=== PATIENT | female | born 1930 | race Caucasian/White ===

== ENCOUNTER 2019-01-12 22:12 | Inpatient (IN) | payer MEDICARE, OTHER ==
[~2019-01-12] VITALS: Ht 152.4 cm; Wt 52.9 kg
[2019-01-13] MEDS ORDERED: POTA10TA37 PO (00:45)
[2019-01-13] MEDS ORDERED: SIMV20TA PO (00:45)
[2019-01-13] MEDS ORDERED: FOLI-49 PO (00:45)
[2019-01-13] MEDS ORDERED: FURO20TA3 PO (00:45)
[2019-01-13] MEDS ORDERED: WARF1TAB PO (00:45)
[2019-01-13] MEDS ORDERED: ALLO300T2 PO (00:45)
[2019-01-13] MEDS ORDERED: CEFTRIAXONE 1 GM/50 ML (PMX) 50 ML IVPB ONE (03:00)
--- NOTE | 2019-01-13 03:29 | ERD ---
ER Documentation Chief Complaint Chief Complaint BIBA 39 for weaknes x 2 days HPI This is an 88-year-old female brought in by rescue 39 for generalized weakness for the past 2 days. She is nonfocal and has no focal complaints. She does feel that she is been a little bit slow and lethargic. She denies any fevers chills. Denies any nausea vomiting. Denies any chest pain. Denies any other current complaints. Patient is a relatively good historian. She said she was recently admitted to [facility] to Dr. Vallejo ROS All systems reviewed and are negative except as per history of present illness. Medications Home Meds Reported Medications Simvastatin* (Zocor*) 20 Mg Tablet, 20 MG PO QHS, #30 TAB 01/13/19 Potassium Chloride* (K-Dur*) 10 Meq Tab.prt.sr, 10 MEQ PO DAILY, TAB 01/13/19 Warfarin Sodium* (Coumadin*) 1 Mg Tablet, 1 MG PO DAILY, TAB 01/13/19 Folic Acid* (Folic Acid*) 1 Mg Tablet, 1 MG PO DAILY, TAB 01/13/19 Furosemide* (Furosemide*) 20 Mg Tablet, 20 MG PO DAILY, #60 TAB 01/13/19 Allopurinol* (Allopurinol*) 300 Mg Tablet, 300 MG PO DAILY, TAB 01/13/19 Allergies Allergies: Coded Allergies: No Known Allergy (Unverified , 01/13/19) PMhx/Soc History of Surgery: Yes (R hip, pacemaker, L breast lumpectomy) Anesthesia Reaction: No Hx Neurological Disorder: No Hx Respiratory Disorders: No Hx Cardiac Disorders: Yes (CHF) Hx Psychiatric Problems: No Hx Miscellaneous Medical Probl: No Hx Alcohol Use: No Hx Substance Use: No Hx Tobacco Use: No Smoking Status: Never smoker Physical Exam Vitals Vital Signs Date Temp Pulse Resp B/P (MAP) Pulse Ox O2 O2 Flow FiO2 Time Delivery Rate 01/13/19 97.1 60 17 96/59 (71) 100 Nasal 3.0 00:47 Cannula 01/12/19 Nasal 3 23:08 Cannula 01/12/19 97.1 64 16 118/54 100 Nasal 3.0 23:08 (75) Cannula 01/12/19 97.1 60 16 118/54 97 22:25 (75) Physical Exam Const: No acute distress Head: Atraumatic Eyes: Normal Conjunctiva ENT: Normal External Ears, Nose and Mouth. Neck: Full range of motion. No meningismus. Resp: Clear to auscultation bilaterally Cardio: Regular rate and rhythm, no murmurs Abd: Soft, non tender, non distended. Normal bowel sounds Skin: No petechiae or rashes Back: No midline or flank tenderness Ext: No cyanosis, or edema Neur: Awake and alert Psych: Normal Mood and Affect Result Diagram: 01/12/19225001/12/192250 Results 24 hrs Laboratory Tests Test 01/12/19 22:51 01/12/19 23:13 White Blood Count 9.4 10^3/ul Red Blood Count 3.32 10^6/ul Hemoglobin 9.4 g/dl Hematocrit 28.9 % Mean Corpuscular Volume 87.0 fl Mean Corpuscular Hemoglobin 28.3 pg Mean Corpuscular Hemoglobin Concent 32.5 g/dl Red Cell Distribution Width 14.7 % Platelet Count 244 10^3/UL Mean Platelet Volume 10.4 fl Immature Granulocytes % 0.500 % Neutrophils % 78.5 % Lymphocytes % 12.3 % Monocytes % 7.7 % Eosinophils % 0.6 % Basophils % 0.4 % Nucleated Red Blood Cells % 0.0 /100WBC Immature Granulocytes # 0.050 10^3/ul Neutrophils # 7.4 10^3/ul Lymphocytes # 1.2 10^3/ul Monocytes # 0.7 10^3/ul Eosinophils # 0.1 10^3/ul Basophils # 0.0 10^3/ul Nucleated Red Blood Cells # 0.0 10^3/ul Prothrombin Time 23.0 Sec Prothrombin Time Ratio 1.8 INR International Normalized Ratio 2.03 Activated Partial Thromboplast Time 31.2 Sec Urine Color YELLOW Urine Clarity SLIGHTLY CLOUDY Urine pH 5.0 Urine Specific [place] 1.023 Urine Ketones NEGATIVE mg/dL Urine Nitrite NEGATIVE mg/dL Urine Bilirubin NEGATIVE mg/dL Urine Urobilinogen 2+ mg/dL Urine Leukocyte Esterase TRACE Phyllis/ul Urine Microscopic RBC 2 /HPF Urine Microscopic WBC 31 /HPF Urine Squamous Epithelial Cells FEW /HPF Urine Bacteria MANY /HPF Urine Mucus FEW /HPF Urine Hemoglobin 1+ mg/dL Urine Glucose NEGATIVE mg/dL Urine Total Protein 2+ mg/dl Sodium Level 139 mmol/L Potassium Level 4.2 mmol/L Chloride Level 104 mmol/L Carbon Dioxide Level 27 mmol/L Anion Gap 8 Blood Urea Nitrogen 40 mg/dl Creatinine 1.70 mg/dl Est Glomerular Filtrat Rate mL/min mL/min Glucose Level 181 mg/dl Calcium Level 9.0 mg/dl Total Bilirubin 0.2 mg/dl Direct Bilirubin 0.00 mg/dl Indirect Bilirubin 0.2 mg/dl Aspartate Amino Transf (AST/SGOT) 33 IU/L Alanine Aminotransferase (ALT/SGPT) 16 IU/L Alkaline Phosphatase 90 IU/L Troponin I 0.019 ng/ml Total Protein 6.9 g/dl Albumin 3.6 g/dl Globulin 3.30 g/dl Albumin/Globulin Ratio 1.09 Lactic Acid Level 1.9 mmol/L Current Medications Medications Dose Sig/Michael Start Time Status Last (Trade) Ordered Route PRN Stop Time Admin Dose Reason Admin Ceftriaxone 50 ml @ ONCE ONCE 01/13/19 01/13/19 Sodium 100 mls/hr IVPB 03:00 03:01 01/13/19 03:29 Procedures/MDM EKG: Rate/Rhythm: [Normal Sinus Rhythm] QRS, ST, T-waves: [No changes consistent w/ acute ischemia] Impression: [No evidence of ischemia or arrhythmia] Chest X-ray 1V Interpreted by me: Soft Tissue: No acute abnormalities Bones: No acute abnormalities Mediastinum/Cardiac Silhouette/Lungs: [No acute abnormalities] Medical decision makin-year-old female with generalized weakness and urinary tract infection. Nonfocal neurologically with a normal head CT. At this point I feel the patient is to be admitted for further evaluation and management. Dr. Machado is on-call for the patient's primary Dr. Frausto. Patient will be admitted to medical surgical observation Departure Diagnosis: Primary Impression: Acute weakness Condition: COLTON Loza Jan 13, 2019 03:29
[2019-01-13 04:54] VITALS: Ht 152.4 cm; Wt 52.9 kg
[2019-01-13] MEDS ORDERED: METO-335 PO (05:25)
[2019-01-13] MEDS ORDERED: ONDANSETRON 4 MG INJ IV PRN (06:00)
[2019-01-13 08:00] VITALS: BP 128/56; PULSE 73; RESP 18
[2019-01-13] MEDS: morphine 2 MG INJ IV PRN ×2 (09:19→20:50)
--- NOTE | 2019-01-13 12:46 | HP ---
Date/Time of Note Date/Time of Note DATE: 01/13/19 TIME: 12:34 Assessment/Plan VTE Prophylaxis Risk score (from Ns)>0 risk: 8 SCD applied (from Ns): Yes Pharmacological prophylaxis: LMWH Lines/Catheters IV C[facility]ter Type (from [facility] Saline Lock Urinary Cath still in place: No Assessment/Plan Assessment/Plan -UTI per UA, will obtain urine culture, start Rocephin. -Status post mechanical fall with complaints of right hip and right shoulder pain will obtain x-ray series for right hip and right shoulder. -CHF -Permanent pacemaker -Hyperlipidemia -Acute kidney injury on possible chronic kidney disease -Gout arthritis Further recommendations based on clinical course. Plan of care discussed with Dr. Petty. Result Diagram: 01/13/19 0611 01/13/19 0611 Results 24hrs Laboratory Tests Test 01/12/19 22:51 01/12/19 23:13 01/13/19 02:24 01/13/19 06:11 White Blood Count 9.4 8.0 Red Blood Count 3.32 L 3.04 L Hemoglobin 9.4 L 8.5 L Hematocrit 28.9 L 25.8 L Mean Corpuscular 87.0 84.9 Volume Mean Corpuscular 28.3 L 28.0 L Hemoglobin Mean Corpuscular 32.5 32.9 Hemoglobin Concen t Red Cell 14.7 H 14.2 Distribution Width Platelet Count 244 243 Mean Platelet 10.4 10.7 H Volume Immature 0.500 H 0.500 H Granulocytes % Neutrophils % 78.5 H 79.8 H Lymphocytes % 12.3 L 11.5 L Monocytes % 7.7 7.7 Eosinophils % 0.6 0.1 Basophils % 0.4 0.4 Nucleated Red 0.0 0.0 Blood Cells % Immature 0.050 H 0.040 H Granulocytes # Neutrophils # 7.4 6.4 Lymphocytes # 1.2 0.9 Monocytes # 0.7 0.6 Eosinophils # 0.1 0.0 Basophils # 0.0 0.0 Nucleated Red 0.0 0.0 Blood Cells # Prothrombin Time 23.0 H Prothrombin Time 1.8 Ratio INR International 2.03 Normalized Ratio Activated 31.2 Partial Thrombopl ast Time Urine Color YELLOW Urine Clarity SLIGHTLY CLOUDY A Urine pH 5.0 Urine Specific 1.023 [place] Urine Ketones NEGATIVE Urine Nitrite NEGATIVE Urine Bilirubin NEGATIVE Urine 2+ H Urobilinogen Urine Leukocyte TRACE A Esterase Urine Microscopic 2 RBC Urine Microscopic 31 H WBC Urine Squamous FEW Epithelial Cells Urine Bacteria MANY A Urine Mucus FEW A Urine Hemoglobin 1+ H Urine Glucose NEGATIVE Urine Total 2+ H Protein Sodium Level 139 140 Potassium Level 4.2 4.8 Chloride Level 104 106 Carbon Dioxide 27 27 Level Anion Gap 8 7 Blood Urea 40 H 42 H Nitrogen Creatinine 1.70 H 1.60 H Est Glomerular Filtrat Rate mL/min Glucose Level 181 113 # Calcium Level 9.0 9.3 Total Bilirubin 0.2 Direct Bilirubin 0.00 Indirect 0.2 Bilirubin Aspartate Amino 33 Transf (AST/SGOT) Alanine 16 Aminotransferase (ALT/SGPT) Alkaline 90 Phosphatase Troponin I 0.019 Total Protein 6.9 Albumin 3.6 Globulin 3.30 H Albumin/Globulin 1.09 Ratio Lactic Acid Level 1.9 1.8 HPI/ROS Admit Date/Time Admit Date/Time Jan 13, 2019 at 03:27 Hx of Present Illness The patient is a 88-year-old female with history of congestive heart failure, pacemaker was brought by rescue ambulance to emergency room for complaints of generalized weakness. According to the patient patient sustained an mechanical fall and now complains of the right hip and right shoulder pain. Patient denies any head trauma. Patient urinalysis was indicative of urinary tract infection. Patient also on Coumadin, patient is awake alert however cannot provide detailed medical history. Twelve-lead EKG in ED reveals sinus rhythm. She denies chest pain denies shortness of breath denies nausea vomiting diarrhea. Patient is admitted for further evaluation and management to medical surgical floor. ROS 12 point review of systems is negative except for what mentioned in HPI PMH/Family/Social Past Medical History Medical History: congestive heart failure, high cholesterol Medications Current Medications Ceftriaxone Sodium 50 ml @ 100 mls/hr Q24H IVPB ; Start 01/14/19 at 06:00 Morphine Sulfate (morphine) 2 mg Q4H PRN IV SEVERE PAIN LEVEL 7-10 Last administered on 01/13/19at 09:19; Admin Dose 2 MG; Start 01/13/19 at 06:00 Ondansetron HCl (Zofran Inj) 4 mg Q6H PRN IV NAUSEA AND/OR VOMITING; Start 01/13/19 at 06:00 Coded Allergies: No Known Allergy (Unverified , 01/13/19) Past Surgical History Past Surgical Hx: other (R hip, pacemaker, L breast lumpectomy) Family History Significant Family History: no pertinent family hx Social History Alcohol Use: none Smoking Status: Never smoker Drug Use: none Exam/Review of Systems Vital Signs Vitals Vital Signs Date Temp Pulse Resp B/P (MAP) Pulse Ox O2 O2 Flow FiO2 Time Delivery Rate 01/13/19 98.1 73 18 128/56 98 Room Air 08:00 (80) 01/13/19 3.0 04:13 Exam Constitutional: alert, oriented Neck: supple Respiratory: clear to auscultation Cardiovascular: regular rate and rhythm, other (Left chest PPM) Gastrointestinal: soft, non-tender Musculoskeletal: nl extremities to inspection Extremities: normal pulses Neurological: nl mental status JUAN LAUREN Jan 13, 2019 12:45
[2019-01-13 15:03] VITALS: BP 120/58; PULSE 70; RESP 18
[2019-01-13 20:20] VITALS: BP 113/62; PULSE 77; RESP 18
[2019-01-13] MEDS: ATORVASTATIN 10 MG TAB PO SCH (20:44)
[2019-01-13] MEDS ORDERED: NON-FORMULARY/PATIENT OWN MED (Simvastatin* (Zocor*) 20 MG) PO SCH (21:00)
[2019-01-14 02:19] VITALS: BP 116/57; PULSE 79; RESP 18
[2019-01-14] MEDS: CEFTRIAXONE 1 GM/50 ML (PMX) 50 ML IVPB SCH (05:31)
[2019-01-14] MEDS: morphine LIQ (10 MG/5 ML) CUP PO PRN ×2 (05:35→12:20)
[2019-01-14 07:40] VITALS: BP 113/58; PULSE 84; RESP 18
[2019-01-14] MEDS: FOLIC ACID 1 MG TAB PO SCH (09:00)
[2019-01-14] MEDS: FUROSEMIDE 20 MG TAB PO SCH (09:00)
[2019-01-14] MEDS: ALLOPURINOL 300 MG TAB PO SCH (09:00)
[2019-01-14] MEDS ORDERED: POTASSIUM CHLORIDE (SR) 10 MEQ TAB PO SCH (09:00)
[2019-01-14] MEDS: METOPROLOL (XL) 25 MG TAB PO SCH (09:01)
[2019-01-14 14:25] VITALS: BP 120/65; PULSE 78; RESP 18
--- NOTE | 2019-01-14 15:57 | PN ---
Date/Time of Note Date/Time of Note DATE: 01/14/19 TIME: 15:51 Assessment/Plan VTE Prophylaxis Risk score (from Ns)>0 risk: 9 SCD applied (from Ns): Yes Pharmacological prophylaxis: warfarin tx Lines/Catheters IV Catheter Type (from Nrs): Saline Lock Urinary Cath still in place: No Assessment/Plan Hospital Course Patient's continues to be generally weak, lethargic but easily arousable, continue PT evaluation and treatment. Assessment/Plan -E. coli UTI, continue Rocephin. -Status post mechanical fall with complaints of right hip and right shoulder pain will obtain x-ray series for right hip and right shoulder. Right hip and shoulder x-ray is negative for fracture. Right hip fixation hardware appears intact. -CHF -Permanent pacemaker -Hyperlipidemia -Acute kidney injury on possible chronic kidney disease -Anemia, will obtain stool for OB -Arthritis Further recommendations based on clinical course. Plan of care discussed with Dr. Petty. Result Diagram: 01/14/19 0609 01/14/19 0609 Results 24hrs Laboratory Tests Test 01/14/19 06:09 White Blood Count 7.8 Red Blood Count 2.74 L Hemoglobin 7.7 L Hematocrit 23.0 L Mean Corpuscular Volume 83.9 Mean Corpuscular Hemoglobin 28.1 L Mean Corpuscular Hemoglobin Concent 33.5 Red Cell Distribution Width 14.2 Platelet Count 215 Mean Platelet Volume 10.6 H Immature Granulocytes % 0.400 Neutrophils % 68.5 Lymphocytes % 17.7 Monocytes % 10.8 Eosinophils % 2.2 Basophils % 0.4 Nucleated Red Blood Cells % 0.0 Immature Granulocytes # 0.030 Neutrophils # 5.3 Lymphocytes # 1.4 Monocytes # 0.8 Eosinophils # 0.2 Basophils # 0.0 Nucleated Red Blood Cells # 0.0 Sodium Level 138 Potassium Level 4.5 Chloride Level 101 Carbon Dioxide Level 23 Anion Gap 14 #H Blood Urea Nitrogen 42 H Creatinine 1.53 H Est Glomerular Filtrat Rate mL/min Glucose Level 103 Calcium Level 8.7 Exam/Review of Systems Exam Vitals Vital Signs Date Temp Pulse Resp B/P (MAP) Pulse Ox O2 O2 Flow FiO2 Time Delivery Rate 01/14/19 98.6 78 18 120/65 95 Room Air 14:25 (83) 01/13/19 3.0 04:13 Intake and Output 01/13/19 01/13/19 01/14/19 1515:00 23:00 07:00 IntakeIntake Total 600 ml 320 ml 170 ml OutputOutput Total 100 ml 100 ml BalanceBalance 500 ml 220 ml 170 ml Exam Constitutional: alert, oriented Neck: supple Respiratory: clear to auscultation Cardiovascular: regular rate and rhythm, other (Left chest PPM) Gastrointestinal: soft, non-tender Musculoskeletal: nl extremities to inspection Extremities: normal pulses Neurological: nl mental status Results Results 24hrs Laboratory Tests Test 01/14/19 06:09 White Blood Count 7.8 Red Blood Count 2.74 L Hemoglobin 7.7 L Hematocrit 23.0 L Mean Corpuscular Volume 83.9 Mean Corpuscular Hemoglobin 28.1 L Mean Corpuscular Hemoglobin Concent 33.5 Red Cell Distribution Width 14.2 Platelet Count 215 Mean Platelet Volume 10.6 H Immature Granulocytes % 0.400 Neutrophils % 68.5 Lymphocytes % 17.7 Monocytes % 10.8 Eosinophils % 2.2 Basophils % 0.4 Nucleated Red Blood Cells % 0.0 Immature Granulocytes # 0.030 Neutrophils # 5.3 Lymphocytes # 1.4 Monocytes # 0.8 Eosinophils # 0.2 Basophils # 0.0 Nucleated Red Blood Cells # 0.0 Sodium Level 138 Potassium Level 4.5 Chloride Level 101 Carbon Dioxide Level 23 Anion Gap 14 #H Blood Urea Nitrogen 42 H Creatinine 1.53 H Est Glomerular Filtrat Rate mL/min Glucose Level 103 Calcium Level 8.7 Medications Medication Current Medications Ceftriaxone Sodium 50 ml @ 100 mls/hr Q24H IVPB Last administered on 01/14/19at 05:31; Admin Dose 100 MLS/HR; Start 01/14/19 at 06:00 Ondansetron HCl (Zofran Inj) 4 mg Q6H PRN IV NAUSEA AND/OR VOMITING; Start 01/13/19 at 06:00 Allopurinol (Zyloprim) 300 mg DAILY PO Last administered on 01/14/19at 09:00; Admin Dose 300 MG; Start 01/14/19 at 09:00 Folic Acid (Folic Acid) 1 mg DAILY PO Last administered on 01/14/19at 09:00; Admin Dose 1 MG; Start 01/14/19 at 09:00 Furosemide (Lasix) 20 mg DAILY PO Last administered on 01/14/19at 09:00; Admin Dose 20 MG; Start 01/14/19 at 09:00 Metoprolol Succinate (Toprol Xl) 25 mg DAILY PO Last administered on 01/14/19at 09:01; Admin Dose 25 MG; Start 01/14/19 at 09:00 Warfarin Sodium (Coumadin) 1 mg DAILY@1700 PO ; Start 01/14/19 at 17:00 Atorvastatin Calcium (Lipitor) 10 mg DAILY@21 PO Last administered on 01/13/19at 20:44; Admin Dose 10 MG; Start 01/13/19 at 21:00 Morphine Sulfate (morphine) 6 mg Q4H PRN PO SEVERE PAIN LEVEL 7-10 Last administered on 01/14/19at 12:20; Admin Dose 6 MG; Start 01/13/19 at 22:30 JUAN LAUREN Jan 14, 2019 15:57
[2019-01-14] MEDS: WARFARIN 1 MG TAB PO SCH (17:02)
--- NOTE | 2019-01-14 19:06 | CONS ---
DATE OF ADMISSION: 01/14/2019 DATE OF CONSULTATION: 01/14/2019 TYPE OF CONSULTATION: Cardiology. REASON FOR CONSULTATION: Permanent pacemaker, assess function, abnormal electrocardiogram, rule acute coronary syndrome. REQUESTING PHYSICIAN: Cortez Petty MD HISTORY OF PRESENT ILLNESS: Ms. Velez is an 88-year-old female with history of congestive heart failure, permanent pacemaker on Coumadin for unclear reasons at this time likely cardiac arrhythmia, left breast lumpectomy secondary to breast CA, dyslipidemia, who presents with generalized weakness and per chart biopsy, the patient does not provide any meaningful history to me at this time, had sustained a mechanical fall with associated right hip and right shoulder pain. The patient does not clearly denied chest pain, shortness of breath to me at this time. Upon arrival, temperature was 97.1, blood pressure 118/54, pulse 60, respiratory rate 16, satting 95%. The patient's labs revealed a white blood cell count 9.4, hemoglobin 9.4, platelet count of 244, sodium 139, potassium 4.2, creatinine 1.7, BUN of 40. Troponin negative. INR of 2. UA positive. The patient underwent a shoulder x-ray which revealed no acute fracture or dislocation, moderate degenerative joint disease and a hip x-ray that revealed no acute fracture or dislocation, fixation hardware appears intact. The patient's electrocardiogram reveals atrial paced with a baseline bundle branch block, secondary repolarization abnormalities. The patient has been admitted to the floor and since admit to floor, the patient has had some labile blood pressures but overall relatively stable blood pressure and heart rate. PAST MEDICAL HISTORY: As above in HPI. MEDICATIONS CURRENTLY IN HOSPITAL: 1. Coumadin. 2. Allopurinol. 3. Folic acid. 4. Lasix 20 mg daily. 5. Toprol-XL 25 mg daily. 6. Ceftriaxone. 7. Morphine p.r.n. 8. Lipitor 10 mg daily. 9. Zofran p.r.n. ALLERGIES: NO KNOWN DRUG ALLERGIES. SOCIAL HISTORY: No current tobacco, EtOH or illicit drug use. FAMILY HISTORY: No history of sudden cardiac or early CAD. REVIEW OF SYSTEMS: As above in HPI. CONSTITUTIONAL: No fevers, chills. PULMONARY: No current signs of respiratory compromise. GASTROINTESTINAL: Mild abdominal pain per patient. GENITOURINARY: No hematuria or UTI. MUSCULOSKELETAL: Degenerative joint disease. PSYCHIATRIC: No documented psych history. NEUROLOGIC: No documented history of CVA. ENDOCRINE: No documented history of diabetes mellitus or thyroid disease. PHYSICAL EXAMINATION: VITAL SIGNS: Temperature 98.6, blood pressure 120/65, pulse 78, respiratory rate 18, satting 95%. GENERAL: The patient is sleeping but arousable. NECK: JVP approximately is 8 to 9 cm of water. CHEST: Fair air movement throughout with mild decreased breath sounds at bases bilaterally. HEART: Regular rate and rhythm. Normal S1, S2, I/ systolic murmur. ABDOMEN: Positive bowel sounds, soft. EXTREMITIES: No significant pitting edema, 1+ pulses bilateral posterior tibial. LABORATORY DATA: Most recently from today, white blood cell count 7.8, hemoglobin 7.7, platelet count 215. Sodium 138, potassium 4.5, creatinine 1.53, BUN of 42. INR of 2.0. UA positive. IMAGING STUDIES: As above in HPI. No further imaging studies for my review at this time. ELECTROCARDIOGRAM: As above in HPI. No further electrocardiograms for my review at this time. IMPRESSION: 1. Permanent pacemaker, assess function. 2. Abnormal electrocardiogram, left bundle block. Assess for acute coronary syndrome associated with the patient's fall. 3. Status post fall to ensure not due to cardiac etiology and truly mechanical as the patient describes. 4. Hypertension, under reasonable control. 5. Dyslipidemia. 6. Abdominal pain. 7. Hypercoagulable state, on Coumadin, therapeutic, question true cardiac arrhythmia. RECOMMENDATIONS: 1. At this time, we would continue to check serial EKGs to assess for any ongoing changes 2. Check a 2D echo for this patient's ejection fraction, wall motion and any major valve abnormalities seen. 3. Continue the patient's baseline Toprol at this time following blood pressure closely. 4. We will continue the patient's current statin and adjust it according to fasting lipid panel on recheck. 5. We will continue the patient's daily Lasix and follow volume status and creatinine closely. 6. The patient's Coumadin and continue to follow INR closely. 7. We will obtain further history from family as to why the patient is on Coumadin. 8. Continue patient's antibiotics and follow up all culture data including a urine culture. Thank you for allowing me to take part in the care of this patient. I will continue to follow her very closely with you with further recommendations to be made as the patient progresses through her inpatient hospital clinical course. Dictated By: DUSTIN SAGE/KEVIN Conf#: [id number] DID#: [id number] CC: CORTEZ PETTY MD;*EndCC* MTDD
[2019-01-14 20:00] VITALS: BP 110/54; PULSE 80; RESP 17
[2019-01-14] MEDS: ATORVASTATIN 10 MG TAB PO SCH (21:29)
[2019-01-15 02:00] VITALS: BP 126/62; PULSE 77; RESP 18
[2019-01-15] MEDS: CEFTRIAXONE 1 GM/50 ML (PMX) 50 ML IVPB SCH (05:42)
[2019-01-15] MEDS: morphine LIQ (10 MG/5 ML) CUP PO PRN ×2 (05:45→09:44)
[2019-01-15 07:20] VITALS: BP 128/60; PULSE 85; RESP 18
[2019-01-15] MEDS: ALLOPURINOL 300 MG TAB PO SCH (09:43)
[2019-01-15] MEDS: METOPROLOL (XL) 25 MG TAB PO SCH (09:43)
[2019-01-15] MEDS: FOLIC ACID 1 MG TAB PO SCH (09:43)
[2019-01-15] MEDS: FUROSEMIDE 20 MG TAB PO SCH (09:44)
--- NOTE | 2019-01-15 13:24 | CONS ---
Assessment/Plan Assessment/Plan Hospital Course (Demo Recall) IMPRESSION: 1. Permanent pacemaker, assess function- no signs of dysfunction at this time 2. Abnormal electrocardiogram, left bundle block. Assess for acute coronary syndrome associated with the patient's fall.-neg trop x 3 3. Status post fall to ensure not due to cardiac etiology and truly mechanical as the patient describes. 4. Hypertension, under reasonable control. 5. Dyslipidemia.-LDL 41 HDL 60 6. Abdominal pain. 7. Hypercoagulable state, on Coumadin, therapeutic, question true cardiac arrhythmia.-now subtherapeutic Recc: -serial ecg's -Consider increase in dose to couamdin -Continue current toprol -Contineu current statin -Contneu lasix and follow volume status -Contineu abx's and f/u cx data Consultation Date/Type/Reason Admit Date/Time Jan 14, 2019 at 15:09 Initial Consult Date 01/14/19 Type of Consult Cardiology Reason for Consultation PPM/abnl ecg Requesting Provider: SJ SCHAEFER MD Date/Time of Note DATE: 01/15/19 TIME: 13:20 Exam/Review of Systems Vital Signs Vitals Vital Signs Date Temp Pulse Resp B/P (MAP) Pulse Ox O2 O2 Flow FiO2 Time Delivery Rate 01/15/19 98.8 85 18 128/60 96 Room Air 07:20 (82) 01/13/19 3.0 04:13 Intake and Output 01/14/19 01/14/19 01/15/19 1515:00 23:00 07:00 IntakeIntake Total 450 ml 250 ml 300 ml BalanceBalance 450 ml 250 ml 300 ml Exam Exam Review of Systems: CONSTITUTIONAL: No fevers, chills. PULMONARY: No sob CARDIOVASCULAR: No chest pain/palpitations GASTROINTESTINAL: No nausea/vomiting. GENITOURINARY: No hematuria/dysuria. MUSCULOSKELETAL: No myagias/arthalgias. PSYCHIATRIC: The patient denies depression. NEUROLOGIC: No weakness Constitutional: alert Psych: no complaints Head: normocephalic ENMT: mucosa pink and moist Neck: supple, jvd (9 cm water) Respiratory: clear to auscultation Cardiovascular: regular rate and rhythm Gastrointestinal: soft, non-tender Musculoskeletal: muscle tone (normal) Extremities: edema (none) Neurological: lethargic Labs Result Diagram: 01/15/1938 01/15/1938 Results 24hrs Laboratory Tests Test 01/14/19 18:32 01/15/19 00:26 01/15/19 05:38 Creatine Kinase 169 132 124 Creatine Kinase Index 1.1 0.9 0.8 Creatinine Kinase MB (Mass) 1.80 1.20 1.01 Troponin I 0.056 0.061 0.070 White Blood Count 9.7 # Red Blood Count 2.67 L Hemoglobin 7.8 L Hematocrit 22.6 L Mean Corpuscular Volume 84.6 Mean Corpuscular Hemoglobin 29.2 Mean Corpuscular Hemoglobin Concent 34.5 Red Cell Distribution Width 14.3 Platelet Count 240 Mean Platelet Volume 10.9 H Immature Granulocytes % 0.600 H Neutrophils % 69.0 Lymphocytes % 16.7 Monocytes % 11.5 H Eosinophils % 1.8 Basophils % 0.4 Nucleated Red Blood Cells % 0.0 Immature Granulocytes # 0.060 H Neutrophils # 6.7 Lymphocytes # 1.6 Monocytes # 1.1 H Eosinophils # 0.2 Basophils # 0.0 Nucleated Red Blood Cells # 0.0 Prothrombin Time 18.4 H Prothrombin Time Ratio 1.4 INR International Normalized Ratio 1.52 Sodium Level 137 Potassium Level 4.5 Chloride Level 105 Carbon Dioxide Level 23 Anion Gap 9 # Blood Urea Nitrogen 38 H Creatinine 1.39 H Est Glomerular Filtrat Rate mL/min Glucose Level 102 Calcium Level 9.1 Triglycerides Level 62 Cholesterol Level 113 LDL Cholesterol, Calculated 41 HDL Cholesterol 60 Cholesterol/HDL Ratio 1.8 Medications Medications Current Medications Ceftriaxone Sodium 50 ml @ 100 mls/hr Q24H IVPB Last administered on 01/15/19at 05:42; Admin Dose 100 MLS/HR; Start 01/14/19 at 06:00 Ondansetron HCl (Zofran Inj) 4 mg Q6H PRN IV NAUSEA AND/OR VOMITING; Start 01/13/19 at 06:00 Allopurinol (Zyloprim) 300 mg DAILY PO Last administered on 01/15/19at 09:43; Admin Dose 300 MG; Start 01/14/19 at 09:00 Folic Acid (Folic Acid) 1 mg DAILY PO Last administered on 01/15/19at 09:43; Adm in Dose 1 MG; Start 01/14/19 at 09:00 Furosemide (Lasix) 20 mg DAILY PO Last administered on 01/15/19 09:44; Admin Dose 20 MG; Start 01/14/19 at 09:00 Metoprolol Succinate (Toprol Xl) 25 mg DAILY PO Last administered on 01/15/19 09:43; Admin Dose 25 MG; Start 01/14/19 at 09:00 Warfarin Sodium (Coumadin) 1 mg DAILY@1700 PO Last administered on 01/14/19 17:02; Admin Dose 1 MG; Start 01/14/19 at 17:00 Atorvastatin Calcium (Lipitor) 10 mg DAILY@21 PO Last administered on 01/14/19 21:29; Admin Dose 10 MG; Start 01/13/19 at 21:00 Morphine Sulfate (morphine) 6 mg Q4H PRN PO SEVERE PAIN LEVEL 7-10 Last administered on 01/15/19 09:44; Admin Dose 6 MG; Start 01/13/19 at 22:30 DUSTIN LANDAVERDE Jan 15, 2019 13:24
--- NOTE | 2019-01-15 13:34 | PN ---
Date/Time of Note Date/Time of Note DATE: 01/15/19 TIME: 13:24 Assessment/Plan VTE Prophylaxis Risk score (from Ns)>0 risk: 7 SCD applied (from [facility]): No SCD contraindicated: patient refusal Pharmacological prophylaxis: warfarin tx Lines/Catheters IV C[facility]ter Type (from [facility] Saline Lock Urinary Cath still in place: No Assessment/Plan Hospital Course Patient still has generalized weakness and right hip pain, patient needs is maximum assist with getting out of bed, obtain orthopedic doctor to consult Dr. Prather, continue physical therapy. Assessment/Plan -Abnormal EKG, rule out acute coronary syndrome. Dr. Ponce is following in cardiology consultation. -E. coli UTI, continue Rocephin. -Status post mechanical fall with complaints of right hip and right shoulder. Right hip and shoulder x-ray is negative for fracture. Right hip fixation hardware appears intact. -CHF -Permanent pacemaker -Hyperlipidemia -Acute kidney injury on possible chronic kidney disease -Anemia, f/up on stool for OB -Arthritis Further recommendations based on clinical course. Plan of care discussed with Dr. Petty. Result Diagram: 01/15/19 0538 01/15/19 0538 Results 24hrs Laboratory Tests Test 01/14/19 18:32 01/15/19 00:26 01/15/19 05:38 Creatine Kinase 169 132 124 Creatine Kinase Index 1.1 0.9 0.8 Creatinine Kinase MB (Mass) 1.80 1.20 1.01 Troponin I 0.056 0.061 0.070 White Blood Count 9.7 # Red Blood Count 2.67 L Hemoglobin 7.8 L Hematocrit 22.6 L Mean Corpuscular Volume 84.6 Mean Corpuscular Hemoglobin 29.2 Mean Corpuscular Hemoglobin Concent 34.5 Red Cell Distribution Width 14.3 Platelet Count 240 Mean Platelet Volume 10.9 H Immature Granulocytes % 0.600 H Neutrophils % 69.0 Lymphocytes % 16.7 Monocytes % 11.5 H Eosinophils % 1.8 Basophils % 0.4 Nucleated Red Blood Cells % 0.0 Immature Granulocytes # 0.060 H Neutrophils # 6.7 Lymphocytes # 1.6 Monocytes # 1.1 H Eosinophils # 0.2 Basophils # 0.0 Nucleated Red Blood Cells # 0.0 Prothrombin Time 18.4 H Prothrombin Time Ratio 1.4 INR International Normalized Ratio 1.52 Sodium Level 137 Potassium Level 4.5 Chloride Level 105 Carbon Dioxide Level 23 Anion Gap 9 # Blood Urea Nitrogen 38 H Creatinine 1.39 H Est Glomerular Filtrat Rate mL/min Glucose Level 102 Calcium Level 9.1 Triglycerides Level 62 Cholesterol Level 113 LDL Cholesterol, Calculated 41 HDL Cholesterol 60 Cholesterol/HDL Ratio 1.8 Exam/Review of Systems Exam Vitals Vital Signs Date Temp Pulse Resp B/P (MAP) Pulse Ox O2 O2 Flow FiO2 Time Delivery Rate 01/15/19 98.8 85 18 128/60 96 Room Air 07:20 (82) 01/13/19 3.0 04:13 Intake and Output 01/14/19 01/14/19 01/15/19 1515:00 23:00 07:00 IntakeIntake Total 450 ml 250 ml 300 ml BalanceBalance 450 ml 250 ml 300 ml Exam Constitutional: alert, oriented Respiratory: clear to auscultation Cardiovascular: regular rate and rhythm, other (Left chest PPM) Gastrointestinal: soft, non-tender Musculoskeletal: nl extremities to inspection Extremities: normal pulses Neurological: nl mental status Results Results 24hrs Laboratory Tests Test 01/14/19 18:32 01/15/19 00:26 01/15/19 05:38 Creatine Kinase 169 132 124 Creatine Kinase Index 1.1 0.9 0.8 Creatinine Kinase MB (Mass) 1.80 1.20 1.01 Troponin I 0.056 0.061 0.070 White Blood Count 9.7 # Red Blood Count 2.67 L Hemoglobin 7.8 L Hematocrit 22.6 L Mean Corpuscular Volume 84.6 Mean Corpuscular Hemoglobin 29.2 Mean Corpuscular Hemoglobin Concent 34.5 Red Cell Distribution Width 14.3 Platelet Count 240 Mean Platelet Volume 10.9 H Immature Granulocytes % 0.600 H Neutrophils % 69.0 Lymphocytes % 16.7 Monocytes % 11.5 H Eosinophils % 1.8 Basophils % 0.4 Nucleated Red Blood Cells % 0.0 Immature Granulocytes # 0.060 H Neutrophils # 6.7 Lymphocytes # 1.6 Monocytes # 1.1 H Eosinophils # 0.2 Basophils # 0.0 Nucleated Red Blood Cells # 0.0 Prothrombin Time 18.4 H Prothrombin Time Ratio 1.4 INR International Normalized Ratio 1.52 Sodium Level 137 Potassium Level 4.5 Chloride Level 105 Carbon Dioxide Level 23 Anion Gap 9 # Blood Urea Nitrogen 38 H Creatinine 1.39 H Est Glomerular Filtrat Rate mL/min Glucose Level 102 Calcium Level 9.1 Triglycerides Level 62 Cholesterol Level 113 LDL Cholesterol, Calculated 41 HDL Cholesterol 60 Cholesterol/HDL Ratio 1.8 Medications Medication Current Medications Ceftriaxone Sodium 50 ml @ 100 mls/hr Q24H IVPB Last administered on 01/15/19 05:42; Admin Dose 100 MLS/HR; Start 01/14/19 at 06:00 Ondansetron HCl (Zofran Inj) 4 mg Q6H PRN IV NAUSEA AND/OR VOMITING; Start 01/13/19 at 06:00 Allopurinol (Zyloprim) 300 mg DAILY PO Last administered on 01/15/19 09:43; Admin Dose 300 MG; Start 01/14/19 at 09:00 Folic Acid (Folic Acid) 1 mg DAILY PO Last administered on 01/15/19 09:43; Admin Dose 1 MG; Start 01/14/19 at 09:00 Furosemide (Lasix) 20 mg DAILY PO Last administered on 01/15/19 09:44; Admin Dose 20 MG; Start 01/14/19 at 09:00 Metoprolol Succinate (Toprol Xl) 25 mg DAILY PO Last administered on 01/15/19 09:43; Admin Dose 25 MG; Start 01/14/19 at 09:00 Warfarin Sodium (Coumadin) 1 mg DAILY@1700 PO Last administered on 01/14/19 17:02; Admin Dose 1 MG; Start 01/14/19 at 17:00 Atorvastatin Calcium (Lipitor) 10 mg DAILY@21 PO Last administered on 01/14/19 21:29; Admin Dose 10 MG; Start 01/13/19 at 21:00 Morphine Sulfate (morphine) 6 mg Q4H PRN PO SEVERE PAIN LEVEL 7-10 Last administered on 01/15/19 09:44; Admin Dose 6 MG; Start 01/13/19 at 22:30 JUAN LAUREN Jan 15, 2019 13:34
[2019-01-15 14:16] VITALS: BP 119/58; PULSE 85; RESP 16
--- NOTE | 2019-01-15 14:24 | RADRPT ---
Echocardiogram Report Patient Name: Yina ISRAEL ID: [id number] : 1930 (88y 7m)Study Date: 01/15/2019 8:51:15 AM Gender: FAccession #: [id number] Tech: Eddy Roach [facility] Location: [facility] Ref.Physician: DUSTIN PONCE Height(Cm): BSA: Weight(Kg): Quality: AdequateAccount #: Procedures: Echocardiographic Report: Transthoracic echocardiogram with complete 2D, M-Mode, and doppler examination. Indications: S/P Fall. Measurements: 2D/M Mode Doppler Measurement Value Normal Range Measurement Value Normal Range LVIDd 2D 5.4 [ 3.8 - 5.2 ] cm AV Peak Maury 1.8 [ 100.0 - 170.0 ] cm/sec LVIDs 2D 4.3 [ 2.2 - 3.5 ] cm AV Peak PG 13.0 [ 2.0 - 9.0 ] mmHg LVPWd 2D 1.1 [ 0.6 - 0.9 ] cm LVOT Peak Maury 0.8 [ 70.0 - 110.0 ] cm/sec IVSd 2D 1.4 [ 0.6 - 0.9 ] cm LVOT Peak PG 2.0 [ 2.0 - 6.0 ] mmHg IVS/LVPW 2D 1.3 ratio MV E Peak Maury 0.8 [ 60.0 - 130.0 ] cm/sec AoR Diam 2D 2.6 [ 2.3 - 3.1 ] cm MV A Peak Maury 1.1 [ 100.0 - 120.0 ] cm/sec LA/Ao 2D 1 ratio MV E/A 0.7 [ 0.8 - 1.5 ] ratio LA Dimen 2D 3.6 [ 2.7 - 3.8 ] cm MV Decel Time 261 [ 104 - 258 ] msec Lat E` Maury 0.0 [ 10.0 - 15.0 ] cm/sec Med E` Maury 0.0 cm/sec MV E/A 0.7 [ 0.8 - 1.5 ] ratio TR Peak Maury 3.3 [ 100.0 - 280.0 ] cm/sec TR Peak PG 45.0 mmHg Findings: Left Ventricle: Sigmoid septum. Mild enlargement of left ventricle cavity. Severe global left ventricular systolic dysfunction. Ejection fraction is visually estimated at 25-30 %. Tissue Doppler/Mitral Doppler indices are consistent with impaired relaxation (Stage I diastolic dysfunction). These segments of the LV are dyskinetic septum base segment and mid septum segment. Right Ventricle: Normal right ventricular size. Normal right ventricular systolic function. Pacemaker right heart. Left Atrium: The left atrium is normal in size. Right Atrium: The right atrium is normal in size. Mitral Valve: Mild mitral leaflet calcification. Moderate mitral annular calcification. Mild mitral valve regurgitation. Aortic Valve: No significant aortic stenosis or insufficiency. Aortic cusps appear mildly calcified. Mild aortic valve regurgitation. Tricuspid Valve: Normal appearance of the tricuspid valve. Estimated peak PA systolic pressure 45 mmHg. There is mild tricuspid regurgitation. Pulmonic Valve: Pulmonic valve not well visualized. Pericardium: Normal pericardium with no significant pericardial effusion. Aorta: Normal aortic root. IVC: Normal size and normal respiratory collapse consistent with normal right atrial pressure. Conclusions: Sigmoid septum. Mild enlargement of left ventricle cavity. Severe global left ventricular systolic dysfunction. Ejection fraction is visually estimated at 25-30 %. Tissue Doppler/Mitral Doppler indices are consistent with impaired relaxation (Stage I diastolic dysfunction). These segments of the LV are dyskinetic septum base segment and mid septum segment. Mild mitral leaflet calcification. Moderate mitral annular calcification. Mild mitral valve regurgitation. No significant aortic stenosis or insufficiency. Aortic cusps appear mildly calcified. Mild aortic valve regurgitation. Normal appearance of the tricuspid valve. Estimated peak PA systolic pressure 45 mmHg. There is mild tricuspid regurgitation. Electronically Signed By: Dustin Ponce 2019-01-15 14:23:07 [facility]
[2019-01-15] MEDS: WARFARIN 1 MG TAB PO SCH (18:15)
[2019-01-15 20:00] VITALS: BP 111/59; PULSE 77; RESP 18
[2019-01-15] MEDS: ATORVASTATIN 10 MG TAB PO SCH (21:29)
[2019-01-15] MEDS ORDERED: ACETAMINOPHEN 500 MG TAB PO PRN (21:30)
[2019-01-16 02:00] VITALS: BP 108/56; PULSE 75; RESP 18
[2019-01-16] MEDS: CEFTRIAXONE 1 GM/50 ML (PMX) 50 ML IVPB SCH (05:57)
[2019-01-16 07:30] VITALS: BP 102/55; PULSE 71; RESP 18
[2019-01-16] MEDS: FOLIC ACID 1 MG TAB PO SCH (08:32)
[2019-01-16] MEDS: FUROSEMIDE 20 MG TAB PO SCH (08:32)
[2019-01-16] MEDS: ALLOPURINOL 300 MG TAB PO SCH (08:32)
[2019-01-16] MEDS: METOPROLOL (XL) 25 MG TAB PO SCH (08:33)
[2019-01-16] MEDS ORDERED: BETAMET NA PHOS/AC(6 MG/ML) 5ML INJ INJ STA (11:45)
[2019-01-16] MEDS ORDERED: BUPIVACAINE 0.5%/EPI (SDV) 30 ML INJ INJ STA (11:45)
[2019-01-16] MEDS ORDERED: METHYLPREDNISOLONE ACET 80 MG/ML 1 ML INJ ONE (13:00)
--- NOTE | 2019-01-16 13:33 | CONS ---
Assessment/Plan Assessment/Plan Hospital Course (Demo Recall) IMPRESSION: 1. Permanent pacemaker, assess function- no signs of dysfunction at this time 2. Abnormal electrocardiogram, left bundle block. Assess for acute coronary syndrome associated with the patient's fall.-neg trop x 3 3. Status post fall to ensure not due to cardiac etiology and truly mechanical as the patient describes. 4. Hypertension, under reasonable control. 5. Dyslipidemia.-LDL 41 HDL 60 6. Abdominal pain. 7. Hypercoagulable state, on Coumadin, therapeutic, question true cardiac arrhythmia.-now subtherapeutic Recc: -serial ecg's -Continue current toprol -Contineu current statin -Contneu lasix and follow volume status -Contineu abx's and f/u cx data -Check INR -To recieve transfusion PRBC's/? ability to continue coumadin Consultation Date/Type/Reason Admit Date/Time Jan 14, 2019 at 15:09 Initial Consult Date 01/14/19 Type of Consult Cardiology Reason for Consultation PPM Requesting Provider: SJ SCHAEFER MD Date/Time of Note DATE: 01/16/19 TIME: 13:31 Exam/Review of Systems Vital Signs Vitals Vital Signs Date Temp Pulse Resp B/P (MAP) Pulse Ox O2 O2 Flow FiO2 Time Delivery Rate 01/16/19 97.9 71 18 102/55 98 Room Air 07:30 (71) 01/13/19 3.0 04:13 Intake and Output 01/15/19 01/15/19 01/16/19 1515:00 23:00 07:00 IntakeIntake Total 350 ml 800 ml 50 ml BalanceBalance 350 ml 800 ml 50 ml Exam Exam Review of Systems: CONSTITUTIONAL: No fevers, chills. PULMONARY: No sob CARDIOVASCULAR: No chest pain/palpitations GASTROINTESTINAL: No nausea/vomiting. GENITOURINARY: No hematuria/dysuria. MUSCULOSKELETAL: No myagias/arthalgias. PSYCHIATRIC: The patient denies depression. NEUROLOGIC: No weakness Constitutional: alert Psych: no complaints Head: normocephalic ENMT: mucosa pink and moist Neck: supple, jvd (9 cm water) Respiratory: diminished breath sounds Cardiovascular: regular rate and rhythm Gastrointestinal: soft, non-tender Musculoskeletal: muscle weakness (generalized) Extremities: edema (none) Neurological: confused, lethargic Labs Result Diagram: 01/16/19 0509 01/15/19 0538 Results 24hrs Laboratory Tests Test 01/16/19 05:09 White Blood Count 9.9 Red Blood Count 2.52 L Hemoglobin 7.1 L Hematocrit 21.1 L Mean Corpuscular Volume 83.7 Mean Corpuscular Hemoglobin 28.2 L Mean Corpuscular Hemoglobin Concent 33.6 Red Cell Distribution Width 14.0 Platelet Count 223 Mean Platelet Volume 10.8 H Immature Granulocytes % 0.700 H Neutrophils % 72.3 Lymphocytes % 13.2 L Monocytes % 13.0 H Eosinophils % 0.5 Basophils % 0.3 Nucleated Red Blood Cells % 0.0 Immature Granulocytes # 0.070 H Neutrophils # 7.2 Lymphocytes # 1.3 Monocytes # 1.3 H Eosinophils # 0.1 Basophils # 0.0 Nucleated Red Blood Cells # 0.0 Iron Level 18 L Total Iron Binding Capacity 254 Percent Iron Saturation 7 L Ferritin 171.0 Vitamin B12 Level 246 Folate > 20.0 H Thyroid Stimulating Hormone (TSH) 0.823 Medications Medications Current Medications Ceftriaxone Sodium 50 ml @ 100 mls/hr Q24H IVPB Last administered on 01/16/19at 05:57; Admin Dose 100 MLS/HR; Start 01/14/19 at 06:00 Ondansetron HCl (Zofran Inj) 4 mg Q6H PRN IV NAUSEA AND/OR VOMITING; Start 01/13/19 at 06:00 Allopurinol (Zyloprim) 300 mg DAILY PO Last administered on 01/16/19at 08:32; Admin Dose 300 MG; Start 01/14/19 at 09:00 Folic Acid (Folic Acid) 1 mg DAILY PO Last administered on 01/16/19at 08:32; Admin Dose 1 MG; Start 01/14/19 at 09:00 Furosemide (Lasix) 20 mg DAILY PO Last administered on 01/16/19 08:32; Admin Dose 20 MG; Start 01/14/19 at 09:00 Metoprolol Succinate (Toprol Xl) 25 mg DAILY PO Last administered on 01/16/19at 08:33; Admin Dose 25 MG; Start 01/14/19 at 09:00 Warfarin Sodium (Coumadin) 1 mg DAILY@1700 PO Last administered on 01/15/19at 18:15; Admin Dose 1 MG; Start 01/14/19 at 17:00 Atorvastatin Calcium (Lipitor) 10 mg DAILY@21 PO Last administered on 01/15/19at 21:29; Admin Dose 10 MG; Start 01/13/19 at 21:00 Acetaminophen (Tylenol Tab) 500 mg Q4H PRN PO MILD PAIN(1-3)OR ELEVATED TEMP; Start 01/15/19 at 21:30 Tramadol HCl (Ultram) 50 mg Q6H PRN PO MODERATE PAIN LEVEL 4-6; Start 01/15/19 at 21:30 DUSTIN LANDAVERDE Jan 16, 2019 13:33
[2019-01-16 14:10] VITALS: BP 90/41; PULSE 70; RESP 18
--- NOTE | 2019-01-16 16:01 | PN ---
Date/Time of Note Date/Time of Note DATE: 01/16/19 TIME: 15:54 Assessment/Plan VTE Prophylaxis Risk score (from [facility])>0 risk: 7 SCD applied (from [facility]): Yes Pharmacological prophylaxis: other Pharm contraindication: other Lines/Catheters IV [facility] Type (from [facility] Saline Lock Urinary Cath still in place: No Assessment/Plan Assessment/Plan -Abnormal EKG, rule out acute coronary syndrome. - Dr. Ponce is following in cardiology consultation. -E. coli UTI, continue Rocephin. -febrile illness inspite of Rocephin - ID Consult - Dr Price -Status post mechanical fall with complaints of right hip and right shoulder -local hematoma in the right pelvic sidewall. Continue conservative treatment- coumadin on hold -Right hip and shoulder x-ray is negative for fracture. Right hip fixation hardware appears intact. -CHF -Permanent pacemaker -Hyperlipidemia -Acute kidney injury on possible chronic kidney disease- resolving -Anemia - GI consult - Hematology consult- Dr De Guzman notified -Arthritis Further recommendations based on clinical course. Plan of care discussed with Dr. Petty. Result Diagram: 01/16/19 0509 01/15/19 0538 Results 24hrs Laboratory Tests Test 01/16/19 05:09 01/16/19 13:47 White Blood Count 9.9 Red Blood Count 2.52 L Hemoglobin 7.1 L Hematocrit 21.1 L Mean Corpuscular Volume 83.7 Mean Corpuscular Hemoglobin 28.2 L Mean Corpuscular Hemoglobin Concent 33.6 Red Cell Distribution Width 14.0 Platelet Count 223 Mean Platelet Volume 10.8 H Immature Granulocytes % 0.700 H Neutrophils % 72.3 Lymphocytes % 13.2 L Monocytes % 13.0 H Eosinophils % 0.5 Basophils % 0.3 Nucleated Red Blood Cells % 0.0 Immature Granulocytes # 0.070 H Neutrophils # 7.2 Lymphocytes # 1.3 Monocytes # 1.3 H Eosinophils # 0.1 Basophils # 0.0 Nucleated Red Blood Cells # 0.0 Iron Level 18 L Total Iron Binding Capacity 254 Percent Iron Saturation 7 L Ferritin 171.0 Vitamin B12 Level 246 Folate > 20.0 H Thyroid Stimulating Hormone (TSH) 0.823 Prothrombin Time 17.6 H Prothrombin Time Ratio 1.4 INR International Normalized Ratio 1.44 Subjective 24 Hr Interval Summary Free Text/Dictation nad Constitutional: requiring O2 Eyes: no complaints ENT: no complaints Respiratory: no complaints Cardiovascular: no complaints Gastrointestinal: no complaints Musculoskeletal: bone/joint pain, restricted range of motion Exam/Review of Systems Exam Vitals Vital Signs Date Temp Pulse Resp B/P (MAP) Pulse Ox O2 O2 Flow FiO2 Time Delivery Rate 01/16/19 99.0 14:22 01/16/19 70 18 90/41 (57) 98 Room Air 14:10 01/13/19 3.0 04:13 Intake and Output 01/15/19 01/15/19 01/16/19 1515:00 23:00 07:00 IntakeIntake Total 350 ml 800 ml 50 ml BalanceBalance 350 ml 800 ml 50 ml Constitutional: alert, well developed Psych: nl mood/affect Head: normocephalic Eyes: nl lids, nl sclera ENMT: nl external ears & nose Respiratory: clear to auscultation Cardiovascular: nl pulses, other (s1s2) Gastrointestinal: soft, non-tender Musculoskeletal: nl extremities to inspection Neurological: confused Skin: nl turgor Lymph: nontender Results Results 24hrs Laboratory Tests Test 01/16/19 05:09 01/16/19 13:47 White Blood Count 9.9 Red Blood Count 2.52 L Hemoglobin 7.1 L Hematocrit 21.1 L Mean Corpuscular Volume 83.7 Mean Corpuscular Hemoglobin 28.2 L Mean Corpuscular Hemoglobin Concent 33.6 Red Cell Distribution Width 14.0 Platelet Count 223 Mean Platelet Volume 10.8 H Immature Granulocytes % 0.700 H Neutrophils % 72.3 Lymphocytes % 13.2 L Monocytes % 13.0 H Eosinophils % 0.5 Basophils % 0.3 Nucleated Red Blood Cells % 0.0 Immature Granulocytes # 0.070 H Neutrophils # 7.2 Lymphocytes # 1.3 Monocytes # 1.3 H Eosinophils # 0.1 Basophils # 0.0 Nucleated Red Blood Cells # 0.0 Iron Level 18 L Total Iron Binding Capacity 254 Percent Iron Saturation 7 L Ferritin 171.0 Vitamin B12 Level 246 Folate > 20.0 H Thyroid Stimulating Hormone (TSH) 0.823 Prothrombin Time 17.6 H Prothrombin Time Ratio 1.4 INR International Normalized Ratio 1.44 Medications Medication Current Medications Ceftriaxone Sodium 50 ml @ 100 mls/hr Q24H IVPB Last administered on 01/16/19at 05:57; Admin Dose 100 MLS/HR; Start 01/14/19 at 06:00 Ondansetron HCl (Zofran Inj) 4 mg Q6H PRN IV NAUSEA AND/OR VOMITING; Start 01/13/19 at 06:00 Allopurinol (Zyloprim) 300 mg DAILY PO Last administered on 01/16/19 08:32; Admin Dose 300 MG; Start 01/14/19 at 09:00 Folic Acid (Folic Acid) 1 mg DAILY PO Last administered on 01/16/19 08:32; Admin Dose 1 MG; Start 01/14/19 at 09:00 Furosemide (Lasix) 20 mg DAILY PO Last administered on 01/16/19 08:32; Admin Dose 20 MG; Start 01/14/19 at 09:00 Metoprolol Succinate (Toprol Xl) 25 mg DAILY PO Last administered on 01/16/19 08:33; Admin Dose 25 MG; Start 01/14/19 at 09:00 Warfarin Sodium (Coumadin) 1 mg DAILY@1700 PO Last administered on 01/15/19 18:15; Admin Dose 1 MG; Start 01/14/19 at 17:00 Atorvastatin Calcium (Lipitor) 10 mg DAILY@21 PO Last administered on 01/15/19 21:29; Admin Dose 10 MG; Start 01/13/19 at 21:00 Acetaminophen (Tylenol Tab) 500 mg Q4H PRN PO MILD PAIN(1-3)OR ELEVATED TEMP Last administered on 01/16/19 13:37; Admin Dose 500 MG; Start 01/15/19 at 21:30 Tramadol HCl (Ultram) 50 mg Q6H PRN PO MODERATE PAIN LEVEL 4-6; Start 01/15/19 at 21:30 SUNDEEP GOLDBERG Jan 16, 2019 16:01
[2019-01-16] MEDS: WARFARIN 1 MG TAB PO SCH (18:55)
[2019-01-16 19:01] VITALS: BP 107/53
[2019-01-16 20:10] VITALS: BP 98/51; PULSE 61; RESP 18
[2019-01-16] MEDS: ATORVASTATIN 10 MG TAB PO SCH (20:57)
[2019-01-17] MEDS: traMADol 50 MG TAB PO PRN (01:05)
[2019-01-17 02:19] VITALS: BP 113/56; PULSE 64; RESP 18
[2019-01-17] MEDS: CEFTRIAXONE 1 GM/50 ML (PMX) 50 ML IVPB SCH (05:52)
[2019-01-17] MEDS: FUROSEMIDE 20 MG TAB PO SCH (05:53)
[2019-01-17 06:11] VITALS: BP 104/59; PULSE 61
[2019-01-17] MEDS ORDERED: METHYLPREDNISOLONE ACET 80 MG/ML 1 ML IM ONE (07:30)
[2019-01-17 08:39] VITALS: BP 111/56; PULSE 68; RESP 17
[2019-01-17] MEDS: METOPROLOL (XL) 25 MG TAB PO SCH (09:38)
[2019-01-17] MEDS: FOLIC ACID 1 MG TAB PO SCH (09:38)
[2019-01-17] MEDS: ALLOPURINOL 300 MG TAB PO SCH (09:38)
--- NOTE | 2019-01-17 12:35 | PN ---
Date/Time of Note Date/Time of Note DATE: 01/17/19 TIME: 12:34 Assessment/Plan VTE Prophylaxis Risk score (from [facility])>0 risk: 11 SCD applied (from [facility]): Yes Pharmacological prophylaxis: LMWH Lines/Catheters IV Catheter Type (from [facility] Saline Lock Urinary Cath still in place: No Assessment/Plan Hospital Course -Abnormal EKG, rule out acute coronary syndrome. - Dr. Ponce is following in cardiology consultation. -E. coli UTI, continue Rocephin. -febrile illness inspite of Rocephin - ID Consult - Dr Price -Status post mechanical fall with complaints of right hip and right shoulder. Right hip and shoulder x-ray is negative for fracture. Right hip fixation hardware appears intact. -CHF -Permanent pacemaker -Hyperlipidemia -Acute kidney injury on possible chronic kidney disease- resolving -Anemia, f/up on stool for OB - GI consult- Dr Cannon [employer] NOTIFIED - Hematology consult- Dr De Guzman notified -Arthritis Result Diagram: 01/17/19 0506 01/17/19 0506 Results 24hrs Laboratory Tests Test 01/16/19 13:47 01/17/19 05:06 Prothrombin Time 17.6 H Prothrombin Time Ratio 1.4 INR International Normalized Ratio 1.44 White Blood Count 8.6 Red Blood Count 2.72 L Hemoglobin 7.7 L Hematocrit 22.8 L Mean Corpuscular Volume 83.8 Mean Corpuscular Hemoglobin 28.3 L Mean Corpuscular Hemoglobin Concent 33.8 Red Cell Distribution Width 13.7 Platelet Count 227 Mean Platelet Volume 11.0 H Immature Granulocytes % 0.300 Neutrophils % 74.4 Lymphocytes % 11.5 L Monocytes % 11.7 H Eosinophils % 1.9 Basophils % 0.2 Nucleated Red Blood Cells % 0.0 Immature Granulocytes # 0.030 Neutrophils # 6.4 Lymphocytes # 1.0 Monocytes # 1.0 H Eosinophils # 0.2 Basophils # 0.0 Nucleated Red Blood Cells # 0.0 Sodium Level 132 L Potassium Level 4.2 Chloride Level 99 Carbon Dioxide Level 24 Anion Gap 9 Blood Urea Nitrogen 47 H Creatinine 1.69 H Est Glomerular Filtrat Rate mL/min Glucose Level 98 Calcium Level 8.5 Subjective 24 Hr Interval Summary Free Text/Dictation Patient has no complaints Exam/Review of Systems Exam Vitals Vital Signs Date Temp Pulse Resp B/P (MAP) Pulse Ox O2 O2 Flow FiO2 Time Delivery Rate 01/17/19 98.6 68 17 111/56 97 Room Air 08:39 (74) Intake and Output 01/16/19 01/16/19 01/17/19 1515:00 23:00 07:00 IntakeIntake Total 200 ml 750 ml 650 ml BalanceBalance 200 ml 750 ml 650 ml Constitutional: well developed Head: normocephalic, atraumatic Neck: supple Respiratory: clear to auscultation Cardiovascular: regular rate and rhythm Gastrointestinal: soft, non-tender Extremities: normal pulses Results Results 24hrs Laboratory Tests Test 01/16/19 13:47 01/17/19 05:06 Prothrombin Time 17.6 H Prothrombin Time Ratio 1.4 INR International Normalized Ratio 1.44 White Blood Count 8.6 Red Blood Count 2.72 L Hemoglobin 7.7 L Hematocrit 22.8 L Mean Corpuscular Volume 83.8 Mean Corpuscular Hemoglobin 28.3 L Mean Corpuscular Hemoglobin Concent 33.8 Red Cell Distribution Width 13.7 Platelet Count 227 Mean Platelet Volume 11.0 H Immature Granulocytes % 0.300 Neutrophils % 74.4 Lymphocytes % 11.5 L Monocytes % 11.7 H Eosinophils % 1.9 Basophils % 0.2 Nucleated Red Blood Cells % 0.0 Immature Granulocytes # 0.030 Neutrophils # 6.4 Lymphocytes # 1.0 Monocytes # 1.0 H Eosinophils # 0.2 Basophils # 0.0 Nucleated Red Blood Cells # 0.0 Sodium Level 132 L Potassium Level 4.2 Chloride Level 99 Carbon Dioxide Level 24 Anion Gap 9 Blood Urea Nitrogen 47 H Creatinine 1.69 H Est Glomerular Filtrat Rate mL/min Glucose Level 98 Calcium Level 8.5 Medications Medication Current Medications Ceftriaxone Sodium 50 ml @ 100 mls/hr Q24H IVPB Last administered on 01/17/19at 05:52; Admin Dose 100 MLS/HR; Start 01/14/19 at 06:00 Ondansetron HCl (Zofran Inj) 4 mg Q6H PRN IV NAUSEA AND/OR VOMITING; Start 01/13/19 at 06:00 Allopurinol (Zyloprim) 300 mg DAILY PO Last administered on 01/17/19at 09:38; Admin Dose 300 MG; Start 01/14/19 at 09:00 Folic Acid (Folic Acid) 1 mg DAILY PO Last administered on 01/17/19 09:38; Admin Dose 1 MG; Start 01/14/19 at 09:00 Metoprolol Succinate (Toprol Xl) 25 mg DAILY PO Last administered on 01/17/19 09:38; Admin Dose 25 MG; Start 01/14/19 at 09:00 Warfarin Sodium (Coumadin) 1 mg DAILY@1700 PO Last administered on 01/16/19 18:55; Admin Dose 1 MG; Start 01/14/19 at 17:00 Atorvastatin Calcium (Lipitor) 10 mg DAILY@21 PO Last administered on 01/16/19 20:57; Admin Dose 10 MG; Start 01/13/19 at 21:00 Acetaminophen (Tylenol Tab) 500 mg Q4H PRN PO MILD PAIN(1-3)OR ELEVATED TEMP Last administered on 01/16/19 13:37; Admin Dose 500 MG; Start 01/15/19 at 21:30 Tramadol HCl (Ultram) 50 mg Q6H PRN PO MODERATE PAIN LEVEL 4-6 Last administered on 01/17/19 01:05; Admin Dose 50 MG; Start 01/15/19 at 21:30 Furosemide (Lasix) 10 mg DAILY@0600 PO ; Start 01/17/19 at 06:00 DANIEL VALERO Jan 17, 2019 12:35
--- NOTE | 2019-01-17 13:01 | CONS ---
Assessment/Plan Assessment/Plan Hospital Course (Demo Recall) IMPRESSION: 1. Permanent pacemaker, assess function- no signs of dysfunction at this time 2. Abnormal electrocardiogram, left bundle block. Assess for acute coronary syndrome associated with the patient's fall.-neg trop x 3 3. Status post fall to ensure not due to cardiac etiology and truly mechanical as the patient describes. 4. Hypertension, under reasonable control. 5. Dyslipidemia.-LDL 41 HDL 60 6. Abdominal pain. 7. Hypercoagulable state, on Coumadin, therapeutic, question true cardiac arrhythmia.-now subtherapeutic 8. anemia- s/p transfusion 9. cardiomyopathy- with low EF 25-30% by echo this admit Recc: -serial ecg's -Continue current toprol -Contineu current statin -Contneu lasix as tolerate only and follow volume status -Contineu abx's and f/u cx data -? hold coumadin given anemia requiring transfusion -consider low dose hydralazine afterload reduction in lieu of ACEI given renal failure Consultation Date/Type/Reason Admit Date/Time Jan 14, 2019 at 15:09 Initial Consult Date 01/14/19 Type of Consult Cardiology Reason for Consultation PPM/abnl ecg Requesting Provider: SJ SCHAEFER MD Date/Time of Note DATE: 01/17/19 TIME: 12:56 Exam/Review of Systems Vital Signs Vitals Vital Signs Date Temp Pulse Resp B/P (MAP) Pulse Ox O2 O2 Flow FiO2 Time Delivery Rate 01/17/19 98.6 68 17 111/56 97 Room Air 08:39 (74) Intake and Output 01/16/19 01/16/19 01/17/19 1515:00 23:00 07:00 IntakeIntake Total 200 ml 750 ml 650 ml BalanceBalance 200 ml 750 ml 650 ml Exam Exam Review of Systems: CONSTITUTIONAL: No fevers, chills. PULMONARY: No sob CARDIOVASCULAR: No chest pain/palpitations GASTROINTESTINAL: No nausea/vomiting. GENITOURINARY: No hematuria/dysuria. MUSCULOSKELETAL: No myagias/arthalgias. PSYCHIATRIC: The patient denies depression. NEUROLOGIC: No weakness Constitutional: alert Psych: no complaints Head: normocephalic ENMT: mucosa pink and moist Neck: supple, jvd (9 cm water) Respiratory: diminished breath sounds (at bases/B) Cardiovascular: regular rate and rhythm Gastrointestinal: soft, non-tender Musculoskeletal: muscle weakness (mild generalized) Extremities: edema (none) Neurological: lethargic Labs Result Diagram: 01/17/19 0506 01/17/19 0506 Results 24hrs Laboratory Tests Test 01/16/19 13:47 01/17/19 05:06 Prothrombin Time 17.6 H Prothrombin Time Ratio 1.4 INR International Normalized Ratio 1.44 White Blood Count 8.6 Red Blood Count 2.72 L Hemoglobin 7.7 L Hematocrit 22.8 L Mean Corpuscular Volume 83.8 Mean Corpuscular Hemoglobin 28.3 L Mean Corpuscular Hemoglobin Concent 33.8 Red Cell Distribution Width 13.7 Platelet Count 227 Mean Platelet Volume 11.0 H Immature Granulocytes % 0.300 Neutrophils % 74.4 Lymphocytes % 11.5 L Monocytes % 11.7 H Eosinophils % 1.9 Basophils % 0.2 Nucleated Red Blood Cells % 0.0 Immature Granulocytes # 0.030 Neutrophils # 6.4 Lymphocytes # 1.0 Monocytes # 1.0 H Eosinophils # 0.2 Basophils # 0.0 Nucleated Red Blood Cells # 0.0 Sodium Level 132 L Potassium Level 4.2 Chloride Level 99 Carbon Dioxide Level 24 Anion Gap 9 Blood Urea Nitrogen 47 H Creatinine 1.69 H Est Glomerular Filtrat Rate mL/min Glucose Level 98 Calcium Level 8.5 Medications Medications Current Medications Ceftriaxone Sodium 50 ml @ 100 mls/hr Q24H IVPB Last administered on 01/17/19at 05:52; Admin Dose 100 MLS/HR; Start 01/14/19 at 06:00 Ondansetron HCl (Zofran Inj) 4 mg Q6H PRN IV NAUSEA AND/OR VOMITING; Start 01/13/19 at 06:00 Allopurinol (Zyloprim) 300 mg DAILY PO Last administered on 01/17/19at 09:38; Admin Dose 300 MG; Start 01/14/19 at 09:00 Folic Acid (Folic Acid) 1 mg DAILY PO Last administered on 01/17/19at 09:38; Admin Dose 1 MG; Start 01/14/19 at 09:00 Metoprolol Succinate (Toprol Xl) 25 mg DAILY PO Last administered on 01/17/19at 09:38; Admin Dose 25 MG; Start 01/14/19 at 09:00 Warfarin Sodium (Coumadin) 1 mg DAILY@1700 PO Last administered on 01/16/19at 18:55; Admin Dose 1 MG; Start 01/14/19 at 17:00 Atorvastatin Calcium (Lipitor) 10 mg DAILY@21 PO Last administered on 01/16/19at 20:57; Admin Dose 10 MG; Start 01/13/19 at 21:00 Acetaminophen (Tylenol Tab) 500 mg Q4H PRN PO MILD PAIN(1-3)OR ELEVATED TEMP Last administered on 01/16/19at 13:37; Admin Dose 500 MG; Start 01/15/19 at 21:30 Tramadol HCl (Ultram) 50 mg Q6H PRN PO MODERATE PAIN LEVEL 4-6 Last administered on 01/17/19at 01:05; Admin Dose 50 MG; Start 01/15/19 at 21:30 Furosemide (Lasix) 10 mg DAILY@0600 PO ; Start 01/17/19 at 06:00 DUSTIN LANDAVERDE Jan 17, 2019 13:01
--- NOTE | 2019-01-17 15:13 | CONS ---
Assessment/Plan Assessment/Plan Hospital Course (Demo Recall) 88 yo F with CHF, history of breast cancer s/p lumpectomy, dyslipidemia, s/p pacemaker on coumadin for presumed arrhythmia with general weakness and failure to thrive. CBC done which showed anemia for which we are consulted. # Normocytic anemia -At this time reason for anemia is multifactorial which include iron deficiency along with likely anemia of chronic disease due to CKD. -Iron levels were done and are low therefore placed order for IV iron x 5 doses. -Agree with GI consult with stool occult blood pending. -Vitamin b12 is low normal but can supplement if needed. -No transfusion unless Hgb < 7 and then would give 1 unit at a time. -Her other cell lines such as her WBC and plt are normal therefore no need for bone marrow investigation at this time. # UTI -Continue abx per primary team. Thank you to Dr. Petty for allowing us to take care of this patient. A total of 40 minutes was spent in consultation with this patient. Consultation Date/Type/Reason Admit Date/Time Jan 14, 2019 at 15:09 Date of Consultation: Jan 17, 2019 Type of Consult Hematology/Oncology Reason for Consultation anemia Requesting Provider: SJ PETTY MD Date/Time of Note DATE: 01/17/19 TIME: 15:05 Hx of Present Illness 88-year-old female with history of congestive heart failure, permanent pacemaker on Coumadin, left breast lumpectomy secondary to breast CA unknown stage but did not receive chemotherapy or radiation, dyslipidemia, who presents with generalized weakness and appetite loss. Upon further workup patient was found to have a urinary tract infection. Patient also had an echo done showing 25-30% EF. CBC was done upon admission and patient had a normal WBC but low Hgb: 8 that drifted down to 7.1 and then up to 7.7 with normal platelets. Patient was on coumadin with elevated INR of 1.8. Patient denies any melena, hematochezia or hematuria. She states she is eating but her appetite is getting less. We are consulted for further workup of anemia. PMH: as above PSxH: lumpectomy SH: Denies tobacco, ETOH, or IVDA. FH: Denies any family history of blood disorders or cancers. Meds: see list All: NKDA Constitutional: no complaints, improved Eyes: no complaints ENT: no complaints Respiratory: no complaints Cardiovascular: no complaints Gastrointestinal: no complaints Genitourinary: no complaints Musculoskeletal: no complaints Skin: no complaints Neurologic: no complaints Endocrine: no complaints Lymphatic: no complaints Psychological: no complaints Immunologic: no complaints Past Medical History see HPI Medical History: congestive heart failure, high cholesterol Home Meds Reported Medications Metoprolol Succinate* (Toprol XL*) 25 Mg Tab.sr.24h, 25 MG PO DAILY, #30 TAB 01/13/19 Simvastatin* (Zocor*) 20 Mg Tablet, 20 MG PO QHS, #30 TAB 01/13/19 Potassium Chloride* (K-Dur*) 10 Meq Tab.prt.sr, 10 MEQ PO DAILY, TAB 01/13/19 Warfarin Sodium* (Coumadin*) 1 Mg Tablet, 1 MG PO DAILY, TAB 01/13/19 Folic Acid* (Folic Acid*) 1 Mg Tablet, 1 MG PO DAILY, TAB 01/13/19 Furosemide* (Furosemide*) 20 Mg Tablet, 20 MG PO DAILY, #60 TAB 01/13/19 Allopurinol* (Allopurinol*) 300 Mg Tablet, 300 MG PO DAILY, TAB 01/13/19 Medications Current Medications Ceftriaxone Sodium 50 ml @ 100 mls/hr Q24H IVPB Last administered on 01/17/19at 05:52; Admin Dose 100 MLS/HR; Start 01/14/19 at 06:00 Ondansetron HCl (Zofran Inj) 4 mg Q6H PRN IV NAUSEA AND/OR VOMITING; Start 01/13/19 at 06:00 Allopurinol (Zyloprim) 300 mg DAILY PO Last administered on 01/17/19at 09:38; Admin Dose 300 MG; Start 01/14/19 at 09:00 Folic Acid (Folic Acid) 1 mg DAILY PO Last administered on 01/17/19at 09:38; Admin Dose 1 MG; Start 01/14/19 at 09:00 Metoprolol Succinate (Toprol Xl) 25 mg DAILY PO Last administered on 01/17/19at 09:38; Admin Dose 25 MG; Start 01/14/19 at 09:00 Warfarin Sodium (Coumadin) 1 mg DAILY@1700 PO Last administered on 01/16/19at 18:55; Admin Dose 1 MG; Start 01/14/19 at 17:00 Atorvastatin Calcium (Lipitor) 10 mg DAILY@21 PO Last administered on 01/16/19at 20:57; Admin Dose 10 MG; Start 01/13/19 at 21:00 Acetaminophen (Tylenol Tab) 500 mg Q4H PRN PO MILD PAIN(1-3)OR ELEVATED TEMP Last administered on 01/16/19at 13:37; Admin Dose 500 MG; Start 01/15/19 at 21:30 Tramadol HCl (Ultram) 50 mg Q6H PRN PO MODERATE PAIN LEVEL 4-6 Last administered on 01/17/19at 01:05; Admin Dose 50 MG; Start 01/15/19 at 21:30 Furosemide (Lasix) 10 mg DAILY@0600 PO ; Start 01/17/19 at 06:00 Hydralazine HCl (Apresoline) 10 mg Q8 PO Last administered on 01/17/19at 13:35; Admin Dose 10 MG; Start 01/17/19 at 14:00 Ferric Sodium Gluconate Complex 125 mg/Sodium Chloride 110 ml @ 110 mls/hr DAILY@1300 IVPB ; Start 01/18/19 at 13:00; Stop 01/22/19 at 13:59 Allergies: Coded Allergies: No Known Allergy (Unverified , 01/13/19) Past Surgical History lumpectomy Past Surgical Hx: other (R hip, pacemaker, L breast lumpectomy) Family History Significant Family History: no pertinent family hx Social History Alcohol Use: none Smoking Status: Never smoker Drug Use: none Exam/Review of Systems Exam Vitals Vital Signs Date Temp Pulse Resp B/P (MAP) Pulse Ox O2 O2 Flow FiO2 Time Delivery Rate 01/17/19 98.6 68 17 111/56 97 Room Air 08:39 (74) Intake and Output 01/16/19 01/16/19 01/17/19 1515:00 23:00 07:00 IntakeIntake Total 200 ml 750 ml 650 ml BalanceBalance 200 ml 750 ml 650 ml Constitutional: well developed Psych: no complaints, nl mood/affect Head: normocephalic, atraumatic Eyes: EOMI, nl lids, nl sclera, PERRL, other (pale conjunctiva) ENMT: nl external ears & nose, nl lips & teeth, nl nasal mucosa & septum Neck: supple, non-tender Respiratory: clear to auscultation, normal air movement Cardiovascular: regular rate and rhythm, nl pulses Gastrointestinal: soft, nl liver, spleen, non-tender Musculoskeletal: nl extremities to inspection, nl gait and stance Extremities: normal pulses Neurological: TRACK MAN II-XII intact, nl speech, nl strength Skin: nl turgor; No rash or lesions Lymph: nl lymph nodes Results Result Diagram: 01/17/19 0506 01/17/19 0506 Results 24hrs Laboratory Tests Test 01/17/19 05:06 White Blood Count 8.6 Red Blood Count 2.72 L Hemoglobin 7.7 L Hematocrit 22.8 L Mean Corpuscular Volume 83.8 Mean Corpuscular Hemoglobin 28.3 L Mean Corpuscular Hemoglobin Concent 33.8 Red Cell Distribution Width 13.7 Platelet Count 227 Mean Platelet Volume 11.0 H Immature Granulocytes % 0.300 Neutrophils % 74.4 Lymphocytes % 11.5 L Monocytes % 11.7 H Eosinophils % 1.9 Basophils % 0.2 Nucleated Red Blood Cells % 0.0 Immature Granulocytes # 0.030 Neutrophils # 6.4 Lymphocytes # 1.0 Monocytes # 1.0 H Eosinophils # 0.2 Basophils # 0.0 Nucleated Red Blood Cells # 0.0 Sodium Level 132 L Potassium Level 4.2 Chloride Level 99 Carbon Dioxide Level 24 Anion Gap 9 Blood Urea Nitrogen 47 H Creatinine 1.69 H Est Glomerular Filtrat Rate mL/min Glucose Level 98 Calcium Level 8.5 Medications Medication Current Medications Ceftriaxone Sodium 50 ml @ 100 mls/hr Q24H IVPB Last administered on 01/17/19at 05:52; Admin Dose 100 MLS/HR; Start 01/14/19 at 06:00 Ondansetron HCl (Zofran Inj) 4 mg Q6H PRN IV NAUSEA AND/OR VOMITING; Start 01/13/19 at 06:00 Allopurinol (Zyloprim) 300 mg DAILY PO Last administered on 01/17/19 09:38; Admin Dose 300 MG; Start 01/14/19 at 09:00 Folic Acid (Folic Acid) 1 mg DAILY PO Last administered on 01/17/19 09:38; Admin Dose 1 MG; Start 01/14/19 at 09:00 Metoprolol Succinate (Toprol Xl) 25 mg DAILY PO Last administered on 01/17/19at 09:38; Admin Dose 25 MG; Start 01/14/19 at 09:00 Warfarin Sodium (Coumadin) 1 mg DAILY@1700 PO Last administered on 01/16/19at 18:55; Admin Dose 1 MG; Start 01/14/19 at 17:00 Atorvastatin Calcium (Lipitor) 10 mg DAILY@21 PO Last administered on 01/16/19at 20:57; Admin Dose 10 MG; Start 01/13/19 at 21:00 Acetaminophen (Tylenol Tab) 500 mg Q4H PRN PO MILD PAIN(1-3)OR ELEVATED TEMP Last administered on 01/16/19at 13:37; Admin Dose 500 MG; Start 01/15/19 at 21:30 Tramadol HCl (Ultram) 50 mg Q6H PRN PO MODERATE PAIN LEVEL 4-6 Last administered on 01/17/19 01:05; Admin Dose 50 MG; Start 01/15/19 at 21:30 Furosemide (Lasix) 10 mg DAILY@0600 PO ; Start 01/17/19 at 06:00 Hydralazine HCl (Apresoline) 10 mg Q8 PO Last administered on 01/17/19at 13:35; Admin Dose 10 MG; Start 01/17/19 at 14:00 Ferric Sodium Gluconate Complex 125 mg/Sodium Chloride 110 ml @ 110 mls/hr DAILY@1300 IVPB ; Start 01/18/19 at 13:00; Stop 01/22/19 at 13:59 JOHN PAUL LAFLEUR DO Jan 17, 2019 15:13
--- NOTE | 2019-01-17 16:00 | CONS ---
DATE OF ADMISSION: 01/14/2019 DATE OF CONSULTATION: 01/15/2019 TYPE OF CONSULTATION: Orthopedic surgical. HISTORY OF PRESENT ILLNESS: The patient is an 88-year-old female with a history of congestive heart failure, status post pacemaker insertion, who was brought in to the emergency room by rescue ambulanc e because of the generalized weakness and inability to ambulate because of the pain involving her rig ht shoulder and right hip which developed following a ground-level fall. Even though she is known to have multiple degenerative osteoarthritis. She was able to stand up and walk with assistance. Foll owing the fall, her pain is worse, especially in the right hip and she was not able to stand up or wa lk. Initial evaluation in the emergency room also revealed that she has an ongoing urinary tract inf ection. PHYSICAL EXAMINATION: My examination revealed an elderly emaciated female who cannot fully participa te in the history taking and physical examination. There was a severe pain on attempted range of mot ion of the right hip. The range of motion of the right hip was also markedly limited because of the pain. There also was considerable limit of motion in the right knee and left knee along with the enl argement. However, there was no obvious effusion or instability. The range of motion of the right s houlder was also limited and there was diffuse tenderness. There were no effusion and there were no signs of any pyogenic process involving the right shoulder or right hip or both knees. The review of the available x-rays revealed the following: Right shoulder. There were no obvious fr acture or dislocations; however, there was an upward migration of the humeral head suggesting an old neglected rotator cuff tear. There also was a mild degree of degenerative osteoarthritis involving t he glenohumeral joint. IMAGING: X-rays of the right hip revealed a presence of degenerative osteoarthritis, moderately adva nced. There was a fixation device, most probably, gamma nail in the right hip, suggesting that she h ad an intertrochanteric fracture of the right hip which was treated with the open reduction and inter nal fixation utilizing gamma nail. The x-rays of both knees revealed the presence of rather advanced degenerative osteoarthritis of both knee joints. DIAGNOSTIC IMPRESSIONS: 1. Right shoulder; presence of old neglected rotator cuff tear along with the degenerative osteoarth ritis of the glenohumeral joint with the symptomatic exacerbation following recent fall. 2. 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 3. Degenerative osteoarthritis of both knee joints, became more symptomatic following a recent fall. RECOMMENDATIONS FOR TREATMENT: Because of her age and overall conditions, she is not a candidate for any surgical intervention at this time and she can be treated with the steroid injection of the righ t hip and both knees as a palliative treatment to improve her ambulation and this could be done in e repeated x-rays of the right hip when a marker and injectable steroids are available. Dictated By: KAYLI PASTOR MD IK/NTS Conf#: [id number] DID#: [id number] CC: SJ SCHAEFER MD;*EndCC*
[2019-01-17] MEDS: WARFARIN 1 MG TAB PO SCH (18:23)
[2019-01-17 20:00] VITALS: BP 116/55; PULSE 71; RESP 18
[2019-01-17] MEDS: ATORVASTATIN 10 MG TAB PO SCH (20:57)
[2019-01-18 02:00] VITALS: BP 124/61; PULSE 70; RESP 16
[2019-01-18] MEDS: CEFTRIAXONE 1 GM/50 ML (PMX) 50 ML IVPB SCH (05:51)
[2019-01-18] MEDS: FUROSEMIDE 20 MG TAB PO SCH (05:53)
[2019-01-18 08:15] VITALS: BP 107/52; PULSE 70; RESP 17
[2019-01-18] MEDS: METOPROLOL (XL) 25 MG TAB PO SCH (09:04)
[2019-01-18] MEDS: ALLOPURINOL 300 MG TAB PO SCH (09:04)
[2019-01-18] MEDS: FOLIC ACID 1 MG TAB PO SCH (09:04)
[2019-01-18] MEDS: SOD FERRIC GLUC COMPLX 125 MG in SOD CHLORIDE 0.9% 100 ML IVPB SCH (12:17)
--- NOTE | 2019-01-18 12:25 | PN ---
Date/Time of Note Date/Time of Note DATE: 01/18/19 TIME: 12:24 Assessment/Plan VTE Prophylaxis Risk score (from Ns)>0 risk: 10 SCD applied (from Nsg): Yes Pharmacological prophylaxis: LMWH Lines/Catheters IV Catheter Type (from Nrs): Peripheral IV Urinary Cath still in place: No Assessment/Plan Hospital Course -Abnormal EKG, rule out acute coronary syndrome. - Dr. Ponce is following in cardiology consultation. -E. coli UTI, continue Rocephin. -febrile illness inspite of Rocephin - ID Consult - Dr Price -Status post mechanical fall with complaints of right hip and right shoulder. Right hip and shoulder x-ray is negative for fracture. Right hip fixation hardware appears intact. -CHF -Permanent pacemaker -Hyperlipidemia -Acute kidney injury on possible chronic kidney disease- resolving -Anemia, f/up on stool for OB - GI consult- Dr Cannon DOORMAKER NOTIFIED - Hematology consult- Dr De Guzman notified -Arthritis Result Diagram: 01/17/19 0506 01/17/19 0506 Results 24hrs Laboratory Tests Test 01/18/19 05:19 01/18/19 06:00 Prothrombin Time 17.4 H Prothrombin Time Ratio 1.4 INR International Normalized Ratio 1.41 Lab Scanned Report BLOOD TRANSFUSION Subjective 24 Hr Interval Summary Free Text/Dictation Patient has no complaints Exam/Review of Systems Exam Vitals Vital Signs Date Temp Pulse Resp B/P (MAP) Pulse Ox O2 O2 Flow FiO2 Time Delivery Rate 01/18/19 98.1 70 17 107/52 96 Room Air 08:15 (70) Intake and Output 01/17/19 01/17/19 01/18/19 1515:00 23:00 07:00 IntakeIntake Total 300 ml 600 ml 350 ml BalanceBalance 300 ml 600 ml 350 ml Constitutional: well developed, frail Head: normocephalic, atraumatic Neck: supple Respiratory: clear to auscultation Cardiovascular: regular rate and rhythm Gastrointestinal: soft, non-tender Extremities: normal pulses Results Results 24hrs Laboratory Tests Test 01/18/19 05:19 01/18/19 06:00 Prothrombin Time 17.4 H Prothrombin Time Ratio 1.4 INR International Normalized Ratio 1.41 Lab Scanned Report BLOOD TRANSFUSION Medications Medication Current Medications Ceftriaxone Sodium 50 ml @ 100 mls/hr Q24H IVPB Last administered on 01/18/19 05:51; Admin Dose 100 MLS/HR; Start 01/14/19 at 06:00 Ondansetron HCl (Zofran Inj) 4 mg Q6H PRN IV NAUSEA AND/OR VOMITING; Start 01/13/19 at 06:00 Allopurinol (Zyloprim) 300 mg DAILY PO Last administered on 01/18/19 09:04; Admin Dose 300 MG; Start 01/14/19 at 09:00 Folic Acid (Folic Acid) 1 mg DAILY PO Last administered on 01/18/19 09:04; Admin Dose 1 MG; Start 01/14/19 at 09:00 Metoprolol Succinate (Toprol Xl) 25 mg DAILY PO Last administered on 01/18/19 09:04; Admin Dose 25 MG; Start 01/14/19 at 09:00 Warfarin Sodium (Coumadin) 1 mg DAILY@1700 PO Last administered on 01/17/19 18:23; Admin Dose 1 MG; Start 01/14/19 at 17:00 Atorvastatin Calcium (Lipitor) 10 mg DAILY@21 PO Last administered on 01/17/19 20:57; Admin Dose 10 MG; Start 01/13/19 at 21:00 Acetaminophen (Tylenol Tab) 500 mg Q4H PRN PO MILD PAIN(1-3)OR ELEVATED TEMP Last administered on 01/16/19 13:37; Admin Dose 500 MG; Start 01/15/19 at 21:30 Tramadol HCl (Ultram) 50 mg Q6H PRN PO MODERATE PAIN LEVEL 4-6 Last administered on 01/17/19 01:05; Admin Dose 50 MG; Start 01/15/19 at 21:30 Furosemide (Lasix) 10 mg DAILY@0600 PO Last administered on 01/18/19 05:53; Admin Dose 10 MG; Start 01/17/19 at 06:00 Hydralazine HCl (Apresoline) 10 mg Q8 PO Last administered on 01/18/19 05:58; Admin Dose 10 MG; Start 01/17/19 at 14:00 Ferric Sodium Gluconate Complex 125 mg/Sodium Chloride 110 ml @ 110 mls/hr DAILY@1300 IVPB Last administered on 01/18/19 12:17; Admin Dose 110 MLS/HR; Start 01/18/19 at 13:00; Stop 01/22/19 at 13:59 DANIEL VALERO Jan 18, 2019 12:25
--- NOTE | 2019-01-18 12:48 | CONS ---
Assessment/Plan Assessment/Plan Hospital Course (Demo Recall) IMPRESSION: 1. Permanent pacemaker, assess function- no signs of dysfunction at this time 2. Abnormal electrocardiogram, left bundle block. Assess for acute coronary syndrome associated with the patient's fall.-neg trop x 3 3. Status post fall to ensure not due to cardiac etiology and truly mechanical as the patient describes. 4. Hypertension, under reasonable control. 5. Dyslipidemia.-LDL 41 HDL 60 6. Abdominal pain. 7. Hypercoagulable state, on Coumadin, therapeutic, question true cardiac arrhythmia.-now subtherapeutic 8. anemia- s/p transfusion 9. cardiomyopathy- with low EF 25-30% by echo this admit Recc: -serial ecg's -Continue current toprol and now afterload reduction with low ose hydralazine -Contineu current statin -Contneu lasix as tolerate only and follow volume status -Contineu abx's and f/u cx data -? hold coumadin given anemia requiring transfusion Consultation Date/Type/Reason Admit Date/Time Jan 14, 2019 at 15:09 Initial Consult Date 01/14/19 Type of Consult Cardiology Reason for Consultation PPM Requesting Provider: SJ SCHAEFER MD Date/Time of Note DATE: 01/18/19 TIME: 12:43 Exam/Review of Systems Vital Signs Vitals Vital Signs Date Temp Pulse Resp B/P (MAP) Pulse Ox O2 O2 Flow FiO2 Time Delivery Rate 01/18/19 98.1 70 17 107/52 96 Room Air 08:15 (70) Intake and Output 01/17/19 01/17/19 01/18/19 1515:00 23:00 07:00 IntakeIntake Total 300 ml 600 ml 350 ml BalanceBalance 300 ml 600 ml 350 ml Exam Exam Review of Systems: CONSTITUTIONAL: No fevers, chills. PULMONARY: No sob CARDIOVASCULAR: No chest pain/palpitations GASTROINTESTINAL: No nausea/vomiting. GENITOURINARY: No hematuria/dysuria. MUSCULOSKELETAL: No myagias/arthalgias. PSYCHIATRIC: The patient denies depression. NEUROLOGIC: No weakness Constitutional: alert Psych: no complaints Head: normocephalic ENMT: mucosa pink and moist Neck: supple, jvd (9 cm water) Respiratory: diminished breath sounds Cardiovascular: regular rate and rhythm Gastrointestinal: soft, non-tender Musculoskeletal: muscle tone (normal) Extremities: edema (none) Neurological: other (No focal deficits) Labs Result Diagram: 01/17/19 0506 01/17/19 0506 Results 24hrs Laboratory Tests Test 01/18/19 05:19 01/18/19 06:00 Prothrombin Time 17.4 H Prothrombin Time Ratio 1.4 INR International Normalized Ratio 1.41 Lab Scanned Report BLOOD TRANSFUSION Medications Medications Current Medications Ceftriaxone Sodium 50 ml @ 100 mls/hr Q24H IVPB Last administered on 01/18/19 05:51; Admin Dose 100 MLS/HR; Start 01/14/19 at 06:00 Ondansetron HCl (Zofran Inj) 4 mg Q6H PRN IV NAUSEA AND/OR VOMITING; Start 01/13/19 at 06:00 Allopurinol (Zyloprim) 300 mg DAILY PO Last administered on 01/18/19 09:04; Admin Dose 300 MG; Start 01/14/19 at 09:00 Folic Acid (Folic Acid) 1 mg DAILY PO Last administered on 01/18/19 09:04; Admin Dose 1 MG; Start 01/14/19 at 09:00 Metoprolol Succinate (Toprol Xl) 25 mg DAILY PO Last administered on 01/18/19 09:04; Admin Dose 25 MG; Start 01/14/19 at 09:00 Warfarin Sodium (Coumadin) 1 mg DAILY@1700 PO Last administered on 01/17/19 18:23; Admin Dose 1 MG; Start 01/14/19 at 17:00 Atorvastatin Calcium (Lipitor) 10 mg DAILY@21 PO Last administered on 01/17/19 20:57; Admin Dose 10 MG; Start 01/13/19 at 21:00 Acetaminophen (Tylenol Tab) 500 mg Q4H PRN PO MILD PAIN(1-3)OR ELEVATED TEMP Last administered on 01/16/19 13:37; Admin Dose 500 MG; Start 01/15/19 at 21:30 Tramadol HCl (Ultram) 50 mg Q6H PRN PO MODERATE PAIN LEVEL 4-6 Last administered on 01/17/19 01:05; Admin Dose 50 MG; Start 01/15/19 at 21:30 Furosemide (Lasix) 10 mg DAILY@0600 PO Last administered on 01/18/19 05:53; Admin Dose 10 MG; Start 01/17/19 at 06:00 Hydralazine HCl (Apresoline) 10 mg Q8 PO Last administered on 01/18/19at 05:58; Admin Dose 10 MG; Start 01/17/19 at 14:00 Ferric Sodium Gluconate Complex 125 mg/Sodium Chloride 110 ml @ 110 mls/hr DAILY@1300 IVPB Last administered on 01/18/19at 12:17; Admin Dose 110 MLS/HR; Start 01/18/19 at 13:00; Stop 01/22/19 at 13:59 DUSTIN LANDAVERDE Jan 18, 2019 12:48
--- NOTE | 2019-01-18 13:16 | CONS ---
Assessment/Plan Assessment/Plan Assessment/Plan (Daily) 88 yo F with CHF, history of breast cancer s/p lumpectomy, dyslipidemia, s/p pacemaker on coumadin for presumed arrhythmia with general weakness and failure to thrive. CBC done which showed anemia for which we are consulted. # Normocytic anemia- Hgb 7.7 today -At this time reason for anemia is multifactorial which include iron deficiency along with likely anemia of chronic disease due to CKD. -Iron levels were done and are low therefore placed order for IV iron x 5 doses. -Agree with GI consult with stool occult blood pending. -Vitamin b12 is low normal but can supplement if needed. -No transfusion unless Hgb < 7 and then would give 1 unit at a time. -Her other cell lines such as her WBC and plt are normal therefore no need for bone marrow investigation at this time. # UTI -Continue abx per primary team. Patient is seen in collaboration with Dr Springer. Consultation Date/Type/Reason Admit Date/Time Jan 14, 2019 at 3:09 pm Initial Consult Date 01/17/19 Type of Consult ONCOLOGY Reason for Consultation ANEMIA Requesting Provider: JS SCHAEFER MD Date/Time of Note DATE: 01/18/19 TIME: 13:16 24 HR Interval Summary Constitutional: requiring O2 Detailed Summary Respiratory: no complaints Cardiovascular: no complaints Gastrointestinal: no complaints Exam/Review of Systems Exam Vitals Vital Signs Date Temp Pulse Resp B/P (MAP) Pulse Ox O2 O2 Flow FiO2 Time Delivery Rate 01/18/19 98.1 70 17 107/52 96 Room Air 08:15 (70) Intake and Output 01/17/19 01/17/19 01/18/19 1515:00 23:00 07:00 IntakeIntake Total 300 ml 600 ml 350 ml BalanceBalance 300 ml 600 ml 350 ml Constitutional: alert, well developed Psych: nl mood/affect Head: normocephalic Eyes: nl conjunctiva (pale), EOMI, nl lids, nl sclera ENMT: nl external ears & nose Neck: non-tender Respiratory: diminished breath sounds (at bases bilaterally) Cardiovascular: nl pulses, other (s1s2) Gastrointestinal: soft, non-tender Musculoskeletal: muscle weakness Extremities: normal pulses Neurological: nl speech, other (alert) Lymph: nontender Results Result Diagram: 01/17/19 0506 01/17/19 0506 Results 24hrs Laboratory Tests Test 01/18/19 05:19 01/18/19 06:00 Prothrombin Time 17.4 H Prothrombin Time Ratio 1.4 INR International Normalized Ratio 1.41 Lab Scanned Report BLOOD TRANSFUSION Medications Medication Current Medications Ceftriaxone Sodium 50 ml @ 100 mls/hr Q24H IVPB Last administered on 01/18/19 05:51; Admin Dose 100 MLS/HR; Start 01/14/19 at 06:00 Ondansetron HCl (Zofran Inj) 4 mg Q6H PRN IV NAUSEA AND/OR VOMITING; Start 01/13/19 at 06:00 Allopurinol (Zyloprim) 300 mg DAILY PO Last administered on 01/18/19 09:04; Admin Dose 300 MG; Start 01/14/19 at 09:00 Folic Acid (Folic Acid) 1 mg DAILY PO Last administered on 01/18/19 09:04; Admin Dose 1 MG; Start 01/14/19 at 09:00 Metoprolol Succinate (Toprol Xl) 25 mg DAILY PO Last administered on 01/18/19 09:04; Admin Dose 25 MG; Start 01/14/19 at 09:00 Warfarin Sodium (Coumadin) 1 mg DAILY@1700 PO Last administered on 01/17/19 18:23; Admin Dose 1 MG; Start 01/14/19 at 17:00 Atorvastatin Calcium (Lipitor) 10 mg DAILY@21 PO Last administered on 01/17/19 20:57; Admin Dose 10 MG; Start 01/13/19 at 21:00 Acetaminophen (Tylenol Tab) 500 mg Q4H PRN PO MILD PAIN(1-3)OR ELEVATED TEMP Last administered on 01/16/19 13:37; Admin Dose 500 MG; Start 01/15/19 at 21:30 Tramadol HCl (Ultram) 50 mg Q6H PRN PO MODERATE PAIN LEVEL 4-6 Last administered on 01/17/19 01:05; Admin Dose 50 MG; Start 01/15/19 at 21:30 Furosemide (Lasix) 10 mg DAILY@0600 PO Last administered on 01/18/19 05:53; Admin Dose 10 MG; Start 01/17/19 at 06:00 Hydralazine HCl (Apresoline) 10 mg Q8 PO Last administered on 2/24/19at 05:58; Admin Dose 10 MG; Start 01/17/19 at 14:00 Ferric Sodium Gluconate Complex 125 mg/Sodium Chloride 110 ml @ 110 mls/hr DAILY@1300 IVPB Last administered on 01/18/19at 12:17; Admin Dose 110 MLS/HR; Start 01/18/19 at 13:00; Stop 01/22/19 at 13:59 SUNDEEP GOLDBERG Jan 18, 2019 1:16 pm
[2019-01-18 13:59] VITALS: BP 104/55; PULSE 60
[2019-01-18 14:00] VITALS: BP 108/87; PULSE 60; RESP 16
[2019-01-18] MEDS: traMADol 50 MG TAB PO PRN (16:13)
[2019-01-18] MEDS: WARFARIN 1 MG TAB PO SCH (16:31)
[2019-01-18 20:00] VITALS: BP 115/56; PULSE 64; RESP 18
[2019-01-18] MEDS: ATORVASTATIN 10 MG TAB PO SCH (21:03)
[2019-01-19 02:00] VITALS: BP 107/53; PULSE 56; RESP 18
[2019-01-19] MEDS: FUROSEMIDE 20 MG TAB PO SCH (05:31)
[2019-01-19] MEDS: CEFTRIAXONE 1 GM/50 ML (PMX) 50 ML IVPB SCH (05:32)
--- NOTE | 2019-01-19 07:21 | PN ---
DATE: 01/17/2019 The patient was treated with the injection of right hip and both knees with steroid mixed with the lo ng-acting local analgesics. Following the injection, the range of motion of both knees and right hip was better and with less pain. She can be up with PT and if she can tolerate the limited mobilizati on with assistance, she can be discharged from ortho point for further followup as an outpatient. Ma nagement of her joints should be mainly a palliative with repeated steroid injection as needed. Dictated By: KAYLI PASTOR MD IK/NTS Conf#: [id number] DID#: [id number] CC: SJ SCHAEFER MD;*EndCC*
[2019-01-19 07:51] VITALS: BP 113/56; PULSE 60; RESP 17
[2019-01-19] MEDS: FOLIC ACID 1 MG TAB PO SCH (08:41)
[2019-01-19] MEDS: ALLOPURINOL 300 MG TAB PO SCH (08:42)
[2019-01-19] MEDS: METOPROLOL (XL) 25 MG TAB PO SCH (08:42)
[2019-01-19] MEDS: traMADol 50 MG TAB PO PRN ×2 (09:32→21:43)
--- NOTE | 2019-01-19 11:51 | PN ---
Date/Time of Note Date/Time of Note DATE: 01/19/19 TIME: 11:50 Assessment/Plan VTE Prophylaxis Risk score (from Nsg)>0 risk: 7 SCD applied (from Nsg): Yes Lines/Catheters IV Catheter Type (from Nrsg): Peripheral IV Urinary Cath still in place: No Assessment/Plan Assessment/Plan -Abnormal EKG, rule out acute coronary syndrome. - Dr. Ponce is following in cardiology consultation. -E. coli UTI, continue Rocephin. -febrile illness inspite of Rocephin - ID Consult - Dr Price -Status post mechanical fall with complaints of right hip and right shoulder. Right hip and shoulder x-ray is negative for fracture. Right hip fixation hardware appears intact. -CHF -Permanent pacemaker -Hyperlipidemia -Acute kidney injury on possible chronic kidney disease- resolving -Anemia, f/up on stool for OB - per GI consult- Dr Cannon - Hematology consult- Dr De Guzman notified -Arthritis Result Diagram: 01/17/19 0506 01/17/19 0506 Exam/Review of Systems Exam Vitals Vital Signs Date Temp Pulse Resp B/P (MAP) Pulse Ox O2 O2 Flow FiO2 Time Delivery Rate 01/19/19 98.0 60 17 113/56 95 Room Air 07:51 (75) Intake and Output 01/18/19 01/18/19 01/19/19 1515:00 23:00 07:00 IntakeIntake Total 830 ml 400 ml 50 ml BalanceBalance 830 ml 400 ml 50 ml Medications Medication Current Medications Ceftriaxone Sodium 50 ml @ 100 mls/hr Q24H IVPB Last administered on 01/19/19at 05:32; Admin Dose 100 MLS/HR; Start 01/14/19 at 06:00 Ondansetron HCl (Zofran Inj) 4 mg Q6H PRN IV NAUSEA AND/OR VOMITING; Start 01/13/19 at 06:00 Allopurinol (Zyloprim) 300 mg DAILY PO Last administered on 01/19/19at 08:42; Admin Dose 300 MG; Start 01/14/19 at 09:00 Folic Acid (Folic Acid) 1 mg DAILY PO Last administered on 01/19/19at 08:41; Admin Dose 1 MG; Start 01/14/19 at 09:00 Metoprolol Succinate (Toprol Xl) 25 mg DAILY PO Last administered on 01/19/19 08:42; Admin Dose 25 MG; Start 01/14/19 at 09:00 Warfarin Sodium (Coumadin) 1 mg DAILY@1700 PO Last administered on 01/18/19 16:31; Admin Dose 1 MG; Start 01/14/19 at 17:00 Atorvastatin Calcium (Lipitor) 10 mg DAILY@21 PO Last administered on 01/18/19 21:03; Admin Dose 10 MG; Start 01/13/19 at 21:00 Acetaminophen (Tylenol Tab) 500 mg Q4H PRN PO MILD PAIN(1-3)OR ELEVATED TEMP Last administered on 01/16/19 13:37; Admin Dose 500 MG; Start 01/15/19 at 21:30 Tramadol HCl (Ultram) 50 mg Q6H PRN PO MODERATE PAIN LEVEL 4-6 Last administered on 01/19/19 09:32; Admin Dose 50 MG; Start 01/15/19 at 21:30 Furosemide (Lasix) 10 mg DAILY@0600 PO Last administered on 01/19/19 05:31; Admin Dose 10 MG; Start 01/17/19 at 06:00 Hydralazine HCl (Apresoline) 10 mg Q8 PO Last administered on 01/19/19 05:32; Admin Dose 10 MG; Start 01/17/19 at 14:00 Ferric Sodium Gluconate Complex 125 mg/Sodium Chloride 110 ml @ 110 mls/hr DAILY@1300 IVPB Last administered on 01/18/19 12:17; Admin Dose 110 MLS/HR; Start 01/18/19 at 13:00; Stop 01/22/19 at 13:59 SUNDEEP GOLDBERG Jan 19, 2019 11:51
[2019-01-19] MEDS: SOD FERRIC GLUC COMPLX 125 MG in SOD CHLORIDE 0.9% 100 ML IVPB SCH (12:56)
[2019-01-19] MEDS ORDERED: SOD FERRIC GLUC COMPLX 125 MG in SOD CHLORIDE 0.9% 100 ML IVPB SCH (13:00)
--- NOTE | 2019-01-19 13:16 | CONS ---
Assessment/Plan Assessment/Plan Hospital Course (Demo Recall) IMPRESSION: 1. Permanent pacemaker, assess function- no signs of dysfunction at this time 2. Abnormal electrocardiogram, left bundle block. Assess for acute coronary syndrome associated with the patient's fall.-neg trop x 3 3. Status post fall to ensure not due to cardiac etiology and truly mechanical as the patient describes. 4. Hypertension, under reasonable control. 5. Dyslipidemia.-LDL 41 HDL 60 6. Abdominal pain. 7. Hypercoagulable state, on Coumadin, therapeutic, question true cardiac arrhythmia.-now subtherapeutic 8. anemia- s/p transfusion 9. cardiomyopathy- with low EF 25-30% by echo this admit Recc: -serial ecg's -Continue current toprol and now afterload reduction with low dose hydralazine -Contineu current statin -Contnue lasix and follow volume status closely -Contineu abx's and f/u cx data -? hold coumadin given anemia requiring transfusion/re-check INR Consultation Date/Type/Reason Admit Date/Time Jan 14, 2019 at 15:09 Initial Consult Date 01/14/19 Type of Consult Cardiology Reason for Consultation PPM Requesting Provider: SJ SCHAEFER MD Date/Time of Note DATE: 01/19/19 TIME: 13:14 Exam/Review of Systems Vital Signs Vitals Vital Signs Date Temp Pulse Resp B/P (MAP) Pulse Ox O2 O2 Flow FiO2 Time Delivery Rate 01/19/19 98.0 60 17 113/56 95 Room Air 07:51 (75) Intake and Output 01/18/19 01/18/19 01/19/19 1515:00 23:00 07:00 IntakeIntake Total 830 ml 400 ml 50 ml BalanceBalance 830 ml 400 ml 50 ml Exam Exam Review of Systems: CONSTITUTIONAL: No fevers, chills. PULMONARY: No sob CARDIOVASCULAR: No chest pain/palpitations GASTROINTESTINAL: No nausea/vomiting. GENITOURINARY: No hematuria/dysuria. MUSCULOSKELETAL: No myagias/arthalgias. PSYCHIATRIC: The patient denies depression. NEUROLOGIC: No weakness Constitutional: alert Psych: no complaints Head: normocephalic ENMT: mucosa pink and moist Neck: supple, jvd (9 cm water) Respiratory: diminished breath sounds (at bases/B) Cardiovascular: regular rate and rhythm Gastrointestinal: soft, non-tender Musculoskeletal: muscle tone (normal) Extremities: edema (none) Neurological: other (No focal deficits) Labs Result Diagram: 01/17/19 0506 01/17/19 0506 Medications Medications Current Medications Ceftriaxone Sodium 50 ml @ 100 mls/hr Q24H IVPB Last administered on 01/19/19 05:32; Admin Dose 100 MLS/HR; Start 01/14/19 at 06:00 Ondansetron HCl (Zofran Inj) 4 mg Q6H PRN IV NAUSEA AND/OR VOMITING; Start 01/13/19 at 06:00 Allopurinol (Zyloprim) 300 mg DAILY PO Last administered on 01/19/19 08:42; Admin Dose 300 MG; Start 01/14/19 at 09:00 Folic Acid (Folic Acid) 1 mg DAILY PO Last administered on 01/19/19 08:41; Admin Dose 1 MG; Start 01/14/19 at 09:00 Metoprolol Succinate (Toprol Xl) 25 mg DAILY PO Last administered on 01/19/19 08:42; Admin Dose 25 MG; Start 01/14/19 at 09:00 Warfarin Sodium (Coumadin) 1 mg DAILY@1700 PO Last administered on 01/18/19 16:31; Admin Dose 1 MG; Start 01/14/19 at 17:00 Atorvastatin Calcium (Lipitor) 10 mg DAILY@21 PO Last administered on 01/18/19 21:03; Admin Dose 10 MG; Start 01/13/19 at 21:00 Acetaminophen (Tylenol Tab) 500 mg Q4H PRN PO MILD PAIN(1-3)OR ELEVATED TEMP Last administered on 01/16/19 13:37; Admin Dose 500 MG; Start 01/15/19 at 21:30 Tramadol HCl (Ultram) 50 mg Q6H PRN PO MODERATE PAIN LEVEL 4-6 Last administered on 01/19/19 09:32; Admin Dose 50 MG; Start 01/15/19 at 21:30 Furosemide (Lasix) 10 mg DAILY@0600 PO Last administered on 01/19/19 05:31; Admin Dose 10 MG; Start 01/17/19 at 06:00 Hydralazine HCl (Apresoline) 10 mg Q8 PO Last administered on 2/25/19at 05:32; Admin Dose 10 MG; Start 01/17/19 at 14:00 Ferric Sodium Gluconate Complex 125 mg/Sodium Chloride 110 ml @ 110 mls/hr DAILY@1300 IVPB Last administered on 01/19/19at 12:56; Admin Dose 110 MLS/HR; Start 01/18/19 at 13:00; Stop 01/22/19 at 13:59 DUSTIN LANDAVERDE Jan 19, 2019 13:16
[2019-01-19 14:00] VITALS: BP 111/85; PULSE 61; RESP 18
--- NOTE | 2019-01-19 14:02 | CONS ---
Assessment/Plan Assessment/Plan Hospital Course (Demo Recall) 88 yo F with CHF, history of breast cancer s/p lumpectomy, dyslipidemia, s/p pacemaker on coumadin for presumed arrhythmia with general weakness and failure to thrive. CBC done which showed anemia for which we are consulted. # Normocytic anemia- Hgb 7.7 on 01/17 -iron studies do reveal iron deficiency -recommend GI consult -IV Ferrlecit ordered -will check erythropoietin level. pt does have CKD which may be a contributing factor to her anemia # UTI -Continue abx per primary team. Thank you for the opportunity to participate in this patients care A total of 40 minutes of face to face time was spent speaking with the patient, of which greater than 50% was spent in counseling and coordination of care and the detailed question and answer session. Consultation Date/Type/Reason Admit Date/Time Jan 14, 2019 at 15:09 Initial Consult Date 01/17/19 Type of Consult hematology Reason for Consultation anemia Requesting Provider: SJ SCHAEFER MD Date/Time of Note DATE: 01/19/19 TIME: 14:00 24 HR Interval Summary Free Text/Dictation pt was started on IV iron Exam/Review of Systems Exam Vitals Vital Signs Date Temp Pulse Resp B/P (MAP) Pulse Ox O2 O2 Flow FiO2 Time Delivery Rate 01/19/19 98.0 60 17 113/56 95 Room Air 07:51 (75) Intake and Output 01/18/19 01/18/19 01/19/19 1414:59 22:59 06:59 IntakeIntake Total 830 ml 400 ml 50 ml BalanceBalance 830 ml 400 ml 50 ml Constitutional: alert, oriented Psych: no complaints Head: normocephalic Eyes: nl conjunctiva ENMT: nl external ears & nose Neck: supple Respiratory: clear to auscultation Cardiovascular: regular rate and rhythm Musculoskeletal: nl extremities to inspection Results Result Diagram: 01/17/19 0506 01/17/19 0506 Medications Medication Current Medications Ceftriaxone Sodium 50 ml @ 100 mls/hr Q24H IVPB Last administered on 01/19/19at 05:32; Admin Dose 100 MLS/HR; Start 01/14/19 at 06:00 Ondansetron HCl (Zofran Inj) 4 mg Q6H PRN IV NAUSEA AND/OR VOMITING; Start 01/13/19 at 06:00 Allopurinol (Zyloprim) 300 mg DAILY PO Last administered on 01/19/19 08:42; Admin Dose 300 MG; Start 01/14/19 at 09:00 Folic Acid (Folic Acid) 1 mg DAILY PO Last administered on 01/19/19 08:41; Admin Dose 1 MG; Start 01/14/19 at 09:00 Metoprolol Succinate (Toprol Xl) 25 mg DAILY PO Last administered on 01/19/19 08:42; Admin Dose 25 MG; Start 01/14/19 at 09:00 Warfarin Sodium (Coumadin) 1 mg DAILY@1700 PO Last administered on 01/18/19 16:31; Admin Dose 1 MG; Start 01/14/19 at 17:00 Atorvastatin Calcium (Lipitor) 10 mg DAILY@21 PO Last administered on 01/18/19 21:03; Admin Dose 10 MG; Start 01/13/19 at 21:00 Acetaminophen (Tylenol Tab) 500 mg Q4H PRN PO MILD PAIN(1-3)OR ELEVATED TEMP Last administered on 01/16/19 13:37; Admin Dose 500 MG; Start 01/15/19 at 21:30 Tramadol HCl (Ultram) 50 mg Q6H PRN PO MODERATE PAIN LEVEL 4-6 Last administered on 01/19/19 09:32; Admin Dose 50 MG; Start 01/15/19 at 21:30 Furosemide (Lasix) 10 mg DAILY@0600 PO Last administered on 01/19/19 05:31; Admin Dose 10 MG; Start 01/17/19 at 06:00 Hydralazine HCl (Apresoline) 10 mg Q8 PO Last administered on 01/19/19 05:32; Admin Dose 10 MG; Start 01/17/19 at 14:00 Ferric Sodium Gluconate Complex 125 mg/Sodium Chloride 110 ml @ 110 mls/hr DAILY@1300 IVPB Last administered on 01/19/19 12:56; Admin Dose 110 MLS/HR; Start 01/18/19 at 13:00; Stop 01/22/19 at 13:59 AYSHA GODFREY M.D. Jan 19, 2019 14:02
--- NOTE | 2019-01-19 17:19 | CONS ---
Assessment/Plan Assessment/Plan Hospital Course (Demo Recall) Summary Assessment and Plan: Assessment: Normocytic anemia- likely multi-factorial Questionable history of UC? -per documentation HX of UC??- patient daughter states no known history- will obtain inflammatory markers Cardiomyopathy- with low EF 25-30% by echo this admit Permanent pacemaker Hypertension Dyslipidemia Abdominal pain. Hypercoagulable state -pt on Coumadin Renal insufficiency Plan: Will obtain Ct abd/pelvis without contrast given Cr level CRP/ESR Pt on results pt may require EGD/colonoscopy- obtain cardiac clearance for possible endoscopic evaluation in the near future, as coagulation will need to be corrected and patient will need to be off Coumadin. Monitor labs, transfuse as needed I spoke to the patient's Ca Rodriguez discussed plan of care, she verbalized understanding and is agreeable. Patient seen in collaboration with Dr. Chambers CC: DANILO CHAMBERS ; Consultation Date/Type/Reason Admit Date/Time Jan 14, 2019 at 15:09 Date/Time of Note DATE: 01/19/19 TIME: 17:02 Hx of Present Illness This is an 88-year-old female with past medical history of congestive heart failure, pacemaker who was brought in by ambulance for generalized weakness status post mechanical fall complaining of right hip and shoulder right shoulder pain. Patient found to have a UTI and was started on antibiotic treatments additionally patient noted to have aggressive anemia without overt signs of GI bleed GI was consulted for further workup. There is some documentation noted with possible history of UC? Spoke to patient's daughter who denies known history of UC patient herself is not the best historian currently there are no overt signs of GI bleeding I be melena, hematochezia, hematemesis. We will plan to monitor CBC obtain CT abdomen/pelvis without contrast secondary to kidney dysfunction and will obtain inflammatory markers based on his results patient may require EGD/colonoscopy per patient's daughter her last endoscopic workup was several years ago unclear of results. Review of Systems: [A 12 system, review was conducted and is negative except as noted in the HPI or here.] Past Medical History Medical History: congestive heart failure, high cholesterol Home Meds Reported Medications Metoprolol Succinate* (Toprol XL*) 25 Mg Tab.sr.24h, 25 MG PO DAILY, #30 TAB 01/13/19 Simvastatin* (Zocor*) 20 Mg Tablet, 20 MG PO QHS, #30 TAB 01/13/19 Potassium Chloride* (K-Dur*) 10 Meq Tab.prt.sr, 10 MEQ PO DAILY, TAB 01/13/19 Warfarin Sodium* (Coumadin*) 1 Mg Tablet, 1 MG PO DAILY, TAB 01/13/19 Folic Acid* (Folic Acid*) 1 Mg Tablet, 1 MG PO DAILY, TAB 01/13/19 Furosemide* (Furosemide*) 20 Mg Tablet, 20 MG PO DAILY, #60 TAB 01/13/19 Allopurinol* (Allopurinol*) 300 Mg Tablet, 300 MG PO DAILY, TAB 01/13/19 Medications Current Medications Ceftriaxone Sodium 50 ml @ 100 mls/hr Q24H IVPB Last administered on 01/19/19at 05:32; Admin Dose 100 MLS/HR; Start 01/14/19 at 06:00 Ondansetron HCl (Zofran Inj) 4 mg Q6H PRN IV NAUSEA AND/OR VOMITING; Start 01/13/19 at 06:00 Allopurinol (Zyloprim) 300 mg DAILY PO Last administered on 01/19/19 08:42; Admin Dose 300 MG; Start 01/14/19 at 09:00 Folic Acid (Folic Acid) 1 mg DAILY PO Last administered on 01/19/19 08:41; Admin Dose 1 MG; Start 01/14/19 at 09:00 Metoprolol Succinate (Toprol Xl) 25 mg DAILY PO Last administered on 01/19/19 08:42; Admin Dose 25 MG; Start 01/14/19 at 09:00 Warfarin Sodium (Coumadin) 1 mg DAILY@1700 PO Last administered on 01/18/19at 16:31; Admin Dose 1 MG; Start 01/14/19 at 17:00 Atorvastatin Calcium (Lipitor) 10 mg DAILY@21 PO Last administered on 01/18/19 21:03; Admin Dose 10 MG; Start 01/13/19 at 21:00 Acetaminophen (Tylenol Tab) 500 mg Q4H PRN PO MILD PAIN(1-3)OR ELEVATED TEMP Last administered on 01/16/19at 13:37; Admin Dose 500 MG; Start 01/15/19 at 21:30 Tramadol HCl (Ultram) 50 mg Q6H PRN PO MODERATE PAIN LEVEL 4-6 Last administered on 01/19/19 09:32; Admin Dose 50 MG; Start 01/15/19 at 21:30 Furosemide (Lasix) 10 mg DAILY@0600 PO Last administered on 01/19/19at 05:31; Admin Dose 10 MG; Start 01/17/19 at 06:00 Hydralazine HCl (Apresoline) 10 mg Q8 PO Last administered on 01/19/19 15:19; Admin Dose 10 MG; Start 01/17/19 at 14:00 Ferric Sodium Gluconate Complex 125 mg/Sodium Chloride 110 ml @ 110 mls/hr DAILY@1300 IVPB Last administered on 01/19/19 12:56; Admin Dose 110 MLS/HR; Start 01/18/19 at 13:00; Stop 01/22/19 at 13:59 Allergies: Coded Allergies: No Known Allergy (Unverified , 01/13/19) Past Surgical History Past Surgical Hx: other (R hip, pacemaker, L breast lumpectomy) Social History Alcohol Use: none Smoking Status: Never smoker Drug Use: none Exam/Review of Systems Exam Vitals Vital Signs Date Temp Pulse Resp B/P (MAP) Pulse Ox O2 O2 Flow FiO2 Time Delivery Rate 01/19/19 97.9 61 18 111/85 96 Room Air 14:00 (94) Intake and Output 01/18/19 01/18/19 01/19/19 1515:00 23:00 07:00 IntakeIntake Total 830 ml 400 ml 50 ml BalanceBalance 830 ml 400 ml 50 ml Constitutional: alert, oriented, other (forgetful) Psych: no complaints Head: normocephalic, atraumatic ENMT: nl external ears & nose Neck: supple, non-tender Respiratory: clear to auscultation Cardiovascular: regular rate and rhythm Gastrointestinal: soft, bowel sounds Results Result Diagram: 01/17/19 0506 01/17/19 0506 Medications Medication Current Medications Ceftriaxone Sodium 50 ml @ 100 mls/hr Q24H IVPB Last administered on 01/19/19 05:32; Admin Dose 100 MLS/HR; Start 01/14/19 at 06:00 Ondansetron HCl (Zofran Inj) 4 mg Q6H PRN IV NAUSEA AND/OR VOMITING; Start 01/13/19 at 06:00 Allopurinol (Zyloprim) 300 mg DAILY PO Last administered on 01/19/19 08:42; Admin Dose 300 MG; Start 01/14/19 at 09:00 Folic Acid (Folic Acid) 1 mg DAILY PO Last administered on 01/19/19 08:41; Admin Dose 1 MG; Start 01/14/19 at 09:00 Metoprolol Succinate (Toprol Xl) 25 mg DAILY PO Last administered on 01/19/19 08:42; Admin Dose 25 MG; Start 01/14/19 at 09:00 Warfarin Sodium (Coumadin) 1 mg DAILY@1700 PO Last administered on 01/18/19 16:31; Admin Dose 1 MG; Start 01/14/19 at 17:00 Atorvastatin Calcium (Lipitor) 10 mg DAILY@21 PO Last administered on 01/18/19 21:03; Admin Dose 10 MG; Start 01/13/19 at 21:00 Acetaminophen (Tylenol Tab) 500 mg Q4H PRN PO MILD PAIN(1-3)OR ELEVATED TEMP Last administered on 01/16/19 13:37; Admin Dose 500 MG; Start 01/15/19 at 21:30 Tramadol HCl (Ultram) 50 mg Q6H PRN PO MODERATE PAIN LEVEL 4-6 Last administered on 01/19/19 09:32; Admin Dose 50 MG; Start 01/15/19 at 21:30 Furosemide (Lasix) 10 mg DAILY@0600 PO Last administered on 01/19/19 05:31; Admin Dose 10 MG; Start 01/17/19 at 06:00 Hydralazine HCl (Apresoline) 10 mg Q8 PO Last administered on 01/19/19 15:19; Admin Dose 10 MG; Start 01/17/19 at 14:00 Ferric Sodium Gluconate Complex 125 mg/Sodium Chloride 110 ml @ 110 mls/hr DAILY@1300 IVPB Last administered on 01/19/19 12:56; Admin Dose 110 MLS/HR; Start 01/18/19 at 13:00; Stop 01/22/19 at 13:59 EMILE MENEZES Jan 19, 2019 17:12
[2019-01-19] MEDS: WARFARIN 1 MG TAB PO SCH (19:20)
[2019-01-19 20:00] VITALS: BP 111/57; PULSE 60; RESP 18
[2019-01-19] MEDS: ATORVASTATIN 10 MG TAB PO SCH (21:42)
[2019-01-20 05:00] VITALS: BP 120/53; PULSE 65; RESP 18
[2019-01-20] MEDS: CEFTRIAXONE 1 GM/50 ML (PMX) 50 ML IVPB SCH (05:52)
[2019-01-20] MEDS: FUROSEMIDE 20 MG TAB PO SCH (05:55)
[2019-01-20 07:47] VITALS: BP 114/57; PULSE 65; RESP 18
--- NOTE | 2019-01-20 09:37 | CONS ---
Consult Date/Type/Reason Admit Date/Time Jan 14, 2019 at 15:09 Initial Consult Date 01/17/19 Requesting Provider: SJ SCHAEFER MD Date/Time of Note DATE: 01/20/19 TIME: 09:35 Subjective NO acute events - pt comfortable - no CP - off tele now. ROS: No fever, no chills, no nausea, no vomiting, no diarrhea/constipation No recent weight changes No chest pain, no PND, no orthopnea - mild sOB No dizziness, blurred vision No thirst, no heat or cold intolerance Objective Vitals Vital Signs Date Temp Pulse Resp B/P (MAP) Pulse Ox O2 O2 Flow FiO2 Time Delivery Rate 01/20/19 97.9 65 18 114/57 95 Room Air 07:47 (76) Intake and Output 01/19/19 01/19/19 01/20/19 1515:00 23:00 07:00 IntakeIntake Total 230 ml 600 ml 50 ml BalanceBalance 230 ml 600 ml 50 ml Exam General: WN/WD/NAD, AOx comfortable HEENT: Unicetric/atraumatic/EOMI (follow commands) NECK: JVD elevated, no thyromegaly Lymph: no lymphadenopathy HEART: regular with no S3, II/ systolic murmur at apex, PMI L, device LUNGS: Coarse sounds ABD: soft, NT, ND, +BS : Intact Neuro: non focal SKIN: chronic changes EXT: trace edema Results/Medications Result Diagram: 01/20/19 0552 01/20/19 0552 Results 24 hrs Laboratory Tests Test 01/19/19 18:42 01/20/19 05:52 Stool Occult Blood NEGATIVE White Blood Count 11.5 #H Red Blood Count 3.01 L Hemoglobin 8.4 L Hematocrit 25.2 L Mean Corpuscular Volume 83.7 Mean Corpuscular Hemoglobin 27.9 L Mean Corpuscular Hemoglobin Concent 33.3 Red Cell Distribution Width 13.9 Platelet Count 372 # Mean Platelet Volume 10.2 Immature Granulocytes % 0.900 H Neutrophils % 90.4 H Lymphocytes % 3.8 L Monocytes % 4.8 Eosinophils % 0.0 Basophils % 0.1 Nucleated Red Blood Cells % 0.3 H Immature Granulocytes # 0.100 H Neutrophils # 10.4 H Lymphocytes # 0.4 L Monocytes # 0.6 Eosinophils # 0.0 Basophils # 0.0 Nucleated Red Blood Cells # 0.0 Erythrocyte Sedimentation Rate 75 H Prothrombin Time 21.2 #H Prothrombin Time Ratio 1.7 INR International Normalized Ratio 1.82 Sodium Level 134 L Potassium Level 5.1 Chloride Level 101 Carbon Dioxide Level 26 Anion Gap 7 Blood Urea Nitrogen 49 H Creatinine 1.21 H Est Glomerular Filtrat Rate mL/min Glucose Level 126 Calcium Level 8.9 C-Reactive Protein 6.5 H Home Meds Reported Medications Metoprolol Succinate* (Toprol XL*) 25 Mg Tab.sr.24h, 25 MG PO DAILY, #30 TAB 01/13/19 Simvastatin* (Zocor*) 20 Mg Tablet, 20 MG PO QHS, #30 TAB 01/13/19 Potassium Chloride* (K-Dur*) 10 Meq Tab.prt.sr, 10 MEQ PO DAILY, TAB 01/13/19 Warfarin Sodium* (Coumadin*) 1 Mg Tablet, 1 MG PO DAILY, TAB 01/13/19 Folic Acid* (Folic Acid*) 1 Mg Tablet, 1 MG PO DAILY, TAB 01/13/19 Furosemide* (Furosemide*) 20 Mg Tablet, 20 MG PO DAILY, #60 TAB 01/13/19 Allopurinol* (Allopurinol*) 300 Mg Tablet, 300 MG PO DAILY, TAB 01/13/19 Medications Current Medications Ceftriaxone Sodium 50 ml @ 100 mls/hr Q24H IVPB Last administered on 01/20/19at 05:52; Admin Dose 100 MLS/HR; Start 01/14/19 at 06:00 Ondansetron HCl (Zofran Inj) 4 mg Q6H PRN IV NAUSEA AND/OR VOMITING; Start 01/13/19 at 06:00 Allopurinol (Zyloprim) 300 mg DAILY PO Last administered on 01/19/19at 08:42; Admin Dose 300 MG; Start 01/14/19 at 09:00 Folic Acid (Folic Acid) 1 mg DAILY PO Last administered on 01/19/19at 08:41; Admin Dose 1 MG; Start 01/14/19 at 09:00 Metoprolol Succinate (Toprol Xl) 25 mg DAILY PO Last administered on 01/19/19at 08:42; Admin Dose 25 MG; Start 01/14/19 at 09:00 Warfarin Sodium (Coumadin) 1 mg DAILY@1700 PO Last administered on 01/19/19 19:20; Admin Dose 1 MG; Start 01/14/19 at 17:00; Status Hold Atorvastatin Calcium (Lipitor) 10 mg DAILY@21 PO Last administered on 01/19/19 21:42; Admin Dose 10 MG; Start 01/13/19 at 21:00 Acetaminophen (Tylenol Tab) 500 mg Q4H PRN PO MILD PAIN(1-3)OR ELEVATED TEMP Last administered on 01/16/19 13:37; Admin Dose 500 MG; Start 01/15/19 at 21:30 Tramadol HCl (Ultram) 50 mg Q6H PRN PO MODERATE PAIN LEVEL 4-6 Last administered on 01/19/19 21:43; Admin Dose 50 MG; Start 01/15/19 at 21:30 Furosemide (Lasix) 10 mg DAILY@0600 PO Last administered on 01/20/19 05:55; Admin Dose 10 MG; Start 01/17/19 at 06:00 Hydralazine HCl (Apresoline) 10 mg Q8 PO Last administered on 01/20/19 05:55; Admin Dose 10 MG; Start 01/17/19 at 14:00 Ferric Sodium Gluconate Complex 125 mg/Sodium Chloride 110 ml @ 110 mls/hr DAILY@1300 IVPB Last administered on 01/19/19 12:56; Admin Dose 110 MLS/HR; Start 01/18/19 at 13:00; Stop 01/22/19 at 13:59 Assessment/Plan Hospital Course (Demo Recall) 1. Permanent pacemaker, assess function- no signs of dysfunction at this time - off tele -o evidence of malfunction mow 2. Abnormal electrocardiogram, left bundle block. Assess for acute coronary syndrome associated with the patient's fall.-neg trop x 3 - no CP- stable 3. Status post fall to ensure not due to cardiac etiology and truly mechanical as the patient describes. 4. Hypertension, under reasonable control- con't med rx now 5. Dyslipidemia.-LDL 41 HDL 60 6. Abdominal pain - better 7. Hypercoagulable state, on Coumadin, therapeutic, question true cardiac arrhythmia.-now subtherapeutic - adjust per pharmacy 8. anemia- s/p transfusion 9. cardiomyopathy- with low EF 25-30% by echo this admit - keep euvolemic RIMMA GUO MD Jan 20, 2019 09:37
[2019-01-20] MEDS: ALLOPURINOL 300 MG TAB PO SCH (10:17)
[2019-01-20] MEDS: FOLIC ACID 1 MG TAB PO SCH (10:17)
[2019-01-20] MEDS: METOPROLOL (XL) 25 MG TAB PO SCH (10:17)
[2019-01-20] MEDS: SOD FERRIC GLUC COMPLX 125 MG in SOD CHLORIDE 0.9% 100 ML IVPB SCH (13:43)
--- NOTE | 2019-01-20 13:56 | PN ---
Date/Time of Note Date/Time of Note DATE: 01/20/19 TIME: 13:55 Assessment/Plan VTE Prophylaxis [place] [facility] [place] risk: 6 SCD applied [place] [facility] [place] Yes Pharmacological prophylaxis: other (scds) Lines/Catheters IV [facility] Type (from [facility] Peripheral IV Urinary Cath still in place: No Assessment/Plan Hospital Course Summary Assessment and Plan: Assessment: Normocytic anemia- likely multi-factorial -Stool OB negative Hematoma seen along the right pelvic sidewall and lower right rectus sheath -Recent, subacute Questionable history of UC? -per documentation HX of UC??- patient daughter states no known history- will obtain inflammatory markers Cardiomyopathy- with low EF 25-30% by echo this admit Permanent pacemaker Hypertension Dyslipidemia Abdominal pain. Hypercoagulable state -pt on Coumadin Renal insufficiency Small bilateral pleural effusions Cholelithiasis. 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 Plan: CRP/ESR Given Ct results no plan for endoscopic evaluation at this time, additionally Stool for OB is negative Patient seen in collaboration with Dr. Cunningham/Di Subjective: Course reviewed with nursing staff Patient interviewed and examined All labs, imaging and other results reviewed The patient resting in bed, appears comfortable No over night events no overt signs of GI bleed Monitor labs transfuse as needed PHYSICAL EXAMINATION: GENERAL: Alert & oriented x 3, in no acute distress SKIN: No lesions EYES: Pupils equal reactive to light EARS/NOSE AND THROAT: Ears normal, nose normal NECK: Supple CHEST: Inspection within normal limits. CARDIOVASCULAR: Heart: Regular rate and rhythm RESPIRATORY: Lungs clear to auscultation GASTROINTESTINAL AND LIVER: Abdomen: Soft, non tenderness, non-distended, no hernias, normoactive bowel sounds. Rectal: Deferred. [ GENITOURINARY: Female genitalia within normal limits. Result Diagram: 01/20/19 0552 01/20/19 0552 Results 24hrs Laboratory Tests Test 01/19/19 18:42 01/20/19 05:52 Stool Occult Blood NEGATIVE White Blood Count 11.5 #H Red Blood Count 3.01 L Hemoglobin 8.4 L Hematocrit 25.2 L Mean Corpuscular Volume 83.7 Mean Corpuscular Hemoglobin 27.9 L Mean Corpuscular Hemoglobin Concent 33.3 Red Cell Distribution Width 13.9 Platelet Count 372 # Mean Platelet Volume 10.2 Immature Granulocytes % 0.900 H Neutrophils % 90.4 H Lymphocytes % 3.8 L Monocytes % 4.8 Eosinophils % 0.0 Basophils % 0.1 Nucleated Red Blood Cells % 0.3 H Immature Granulocytes # 0.100 H Neutrophils # 10.4 H Lymphocytes # 0.4 L Monocytes # 0.6 Eosinophils # 0.0 Basophils # 0.0 Nucleated Red Blood Cells # 0.0 Erythrocyte Sedimentation Rate 75 H Prothrombin Time 21.2 #H Prothrombin Time Ratio 1.7 INR International Normalized Ratio 1.82 Sodium Level 134 L Potassium Level 5.1 Chloride Level 101 Carbon Dioxide Level 26 Anion Gap 7 Blood Urea Nitrogen 49 H Creatinine 1.21 H Est Glomerular Filtrat Rate mL/min Glucose Level 126 Calcium Level 8.9 C-Reactive Protein 6.5 H Exam/Review of Systems Exam Vitals Vital Signs Date Temp Pulse Resp B/P (MAP) Pulse Ox O2 O2 Flow FiO2 Time Delivery Rate 01/20/19 97.9 65 18 114/57 95 Room Air 07:47 (76) Intake and Output 01/19/19 01/19/19 01/20/19 1515:00 23:00 07:00 IntakeIntake Total 230 ml 600 ml 50 ml BalanceBalance 230 ml 600 ml 50 ml Results Results 24hrs Laboratory Tests Test 01/19/19 18:42 01/20/19 05:52 Stool Occult Blood NEGATIVE White Blood Count 11.5 #H Red Blood Count 3.01 L Hemoglobin 8.4 L Hematocrit 25.2 L Mean Corpuscular Volume 83.7 Mean Corpuscular Hemoglobin 27.9 L Mean Corpuscular Hemoglobin Concent 33.3 Red Cell Distribution Width 13.9 Platelet Count 372 # Mean Platelet Volume 10.2 Immature Granulocytes % 0.900 H Neutrophils % 90.4 H Lymphocytes % 3.8 L Monocytes % 4.8 Eosinophils % 0.0 Basophils % 0.1 Nucleated Red Blood Cells % 0.3 H Immature Granulocytes # 0.100 H Neutrophils # 10.4 H Lymphocytes # 0.4 L Monocytes # 0.6 Eosinophils # 0.0 Basophils # 0.0 Nucleated Red Blood Cells # 0.0 Erythrocyte Sedimentation Rate 75 H Prothrombin Time 21.2 #H Prothrombin Time Ratio 1.7 INR International Normalized Ratio 1.82 Sodium Level 134 L Potassium Level 5.1 Chloride Level 101 Carbon Dioxide Level 26 Anion Gap 7 Blood Urea Nitrogen 49 H Creatinine 1.21 H Est Glomerular Filtrat Rate mL/min Glucose Level 126 Calcium Level 8.9 C-Reactive Protein 6.5 H Medications Medication Current Medications Ceftriaxone Sodium 50 ml @ 100 mls/hr Q24H IVPB Last administered on 01/20/19 05:52; Admin Dose 100 MLS/HR; Start 01/14/19 at 06:00 Ondansetron HCl (Zofran Inj) 4 mg Q6H PRN IV NAUSEA AND/OR VOMITING; Start 01/13/19 at 06:00 Allopurinol (Zyloprim) 300 mg DAILY PO Last administered on 01/20/19 10:17; Admin Dose 300 MG; Start 01/14/19 at 09:00 Folic Acid (Folic Acid) 1 mg DAILY PO Last administered on 01/20/19 10:17; Admin Dose 1 MG; Start 01/14/19 at 09:00 Metoprolol Succinate (Toprol Xl) 25 mg DAILY PO Last administered on 01/20/19 10:17; Admin Dose 25 MG; Start 01/14/19 at 09:00 Warfarin Sodium (Coumadin) 1 mg DAILY@1700 PO Last administered on 01/19/19 19:20; Admin Dose 1 MG; Start 01/14/19 at 17:00; Status Hold Atorvastatin Calcium (Lipitor) 10 mg DAILY@21 PO Last administered on 01/19/19 21:42; Admin Dose 10 MG; Start 01/13/19 at 21:00 Acetaminophen (Tylenol Tab) 500 mg Q4H PRN PO MILD PAIN(1-3)OR ELEVATED TEMP Last administered on 01/16/19 13:37; Admin Dose 500 MG; Start 01/15/19 at 21:30 Tramadol HCl (Ultram) 50 mg Q6H PRN PO MODERATE PAIN LEVEL 4-6 Last administered on 01/19/19 21:43; Admin Dose 50 MG; Start 01/15/19 at 21:30 Furosemide (Lasix) 10 mg DAILY@0600 PO Last administered on 01/20/19 05:55; Admin Dose 10 MG; Start 01/17/19 at 06:00 Hydralazine HCl (Apresoline) 10 mg Q8 PO Last administered on 01/20/19 05:55; Admin Dose 10 MG; Start 01/17/19 at 14:00 Ferric Sodium Gluconate Complex 125 mg/Sodium Chloride 110 ml @ 110 mls/hr DAILY@1300 IVPB Last administered on 01/20/19at 13:43; Admin Dose 110 MLS/HR; Start 01/18/19 at 13:00; Stop 01/22/19 at 13:59 EMILE MENEZES Jan 20, 2019 13:56
[2019-01-20 14:06] VITALS: BP 100/50; PULSE 60; RESP 17
[2019-01-20] MEDS: ATORVASTATIN 10 MG TAB PO SCH (20:23)
[2019-01-20 21:36] VITALS: BP 111/57; PULSE 56; RESP 20
--- NOTE | 2019-01-20 23:06 | PN ---
Date/Time of Note Date/Time of Note DATE: 01/20/19 TIME: 23:06 Assessment/Plan VTE [place]axis [place] [facility] [place]: 10 SCD applied (from [facility]): Yes Pharmacological prophylaxis: other Lines/Catheters IV [facility]ter Type (from [facility] Saline Lock Urinary Cath still in place: No Assessment/Plan Result Diagram: 01/20/19 0552 01/20/19 0552 Results 24hrs Laboratory Tests Test 01/20/19 05:52 White Blood Count 11.5 #H Red Blood Count 3.01 L Hemoglobin 8.4 L Hematocrit 25.2 L Mean Corpuscular Volume 83.7 Mean Corpuscular Hemoglobin 27.9 L Mean Corpuscular Hemoglobin Concent 33.3 Red Cell Distribution Width 13.9 Platelet Count 372 # Mean Platelet Volume 10.2 Immature Granulocytes % 0.900 H Neutrophils % 90.4 H Lymphocytes % 3.8 L Monocytes % 4.8 Eosinophils % 0.0 Basophils % 0.1 Nucleated Red Blood Cells % 0.3 H Immature Granulocytes # 0.100 H Neutrophils # 10.4 H Lymphocytes # 0.4 L Monocytes # 0.6 Eosinophils # 0.0 Basophils # 0.0 Nucleated Red Blood Cells # 0.0 Erythrocyte Sedimentation Rate 75 H Prothrombin Time 21.2 #H Prothrombin Time Ratio 1.7 INR International Normalized Ratio 1.82 Sodium Level 134 L Potassium Level 5.1 Chloride Level 101 Carbon Dioxide Level 26 Anion Gap 7 Blood Urea Nitrogen 49 H Creatinine 1.21 H Est Glomerular Filtrat Rate mL/min Glucose Level 126 Calcium Level 8.9 C-Reactive Protein 6.5 H Exam/Review of Systems Exam Vitals Vital Signs Date Temp Pulse Resp B/P (MAP) Pulse Ox O2 O2 Flow FiO2 Time Delivery Rate 01/20/19 97.9 56 20 111/57 100 21:36 (75) 01/20/19 Room Air 14:06 Intake and Output 01/19/19 01/19/19 01/20/19 1515:00 23:00 07:00 IntakeIntake Total 230 ml 600 ml 50 ml BalanceBalance 230 ml 600 ml 50 ml Results Results 24hrs Laboratory Tests Test 01/20/19 05:52 White Blood Count 11.5 #H Red Blood Count 3.01 L Hemoglobin 8.4 L Hematocrit 25.2 L Mean Corpuscular Volume 83.7 Mean Corpuscular Hemoglobin 27.9 L Mean Corpuscular Hemoglobin Concent 33.3 Red Cell Distribution Width 13.9 Platelet Count 372 # Mean Platelet Volume 10.2 Immature Granulocytes % 0.900 H Neutrophils % 90.4 H Lymphocytes % 3.8 L Monocytes % 4.8 Eosinophils % 0.0 Basophils % 0.1 Nucleated Red Blood Cells % 0.3 H Immature Granulocytes # 0.100 H Neutrophils # 10.4 H Lymphocytes # 0.4 L Monocytes # 0.6 Eosinophils # 0.0 Basophils # 0.0 Nucleated Red Blood Cells # 0.0 Erythrocyte Sedimentation Rate 75 H Prothrombin Time 21.2 #H Prothrombin Time Ratio 1.7 INR International Normalized Ratio 1.82 Sodium Level 134 L Potassium Level 5.1 Chloride Level 101 Carbon Dioxide Level 26 Anion Gap 7 Blood Urea Nitrogen 49 H Creatinine 1.21 H Est Glomerular Filtrat Rate mL/min Glucose Level 126 Calcium Level 8.9 C-Reactive Protein 6.5 H Medications Medication Current Medications Ceftriaxone Sodium 50 ml @ 100 mls/hr Q24H IVPB Last administered on 01/20/19at 05:52; Admin Dose 100 MLS/HR; Start 01/14/19 at 06:00 Ondansetron HCl (Zofran Inj) 4 mg Q6H PRN IV NAUSEA AND/OR VOMITING; Start 01/13/19 at 06:00 Allopurinol (Zyloprim) 300 mg DAILY PO Last administered on 01/20/19 10:17; Admin Dose 300 MG; Start 01/14/19 at 09:00 Folic Acid (Folic Acid) 1 mg DAILY PO Last administered on 01/20/19 10:17; Admin Dose 1 MG; Start 01/14/19 at 09:00 Metoprolol Succinate (Toprol Xl) 25 mg DAILY PO Last administered on 01/20/19 10:17; Admin Dose 25 MG; Start 01/14/19 at 09:00 Warfarin Sodium (Coumadin) 1 mg DAILY@1700 PO Last administered on 01/19/19 19:20; Admin Dose 1 MG; Start 01/14/19 at 17:00; Status Hold Atorvastatin Calcium (Lipitor) 10 mg DAILY@21 PO Last administered on 01/20/19 20:23; Admin Dose 10 MG; Start 01/13/19 at 21:00 Acetaminophen (Tylenol Tab) 500 mg Q4H PRN PO MILD PAIN(1-3)OR ELEVATED TEMP Last administered on 01/16/19 13:37; Admin Dose 500 MG; Start 01/15/19 at 21:30 Tramadol HCl (Ultram) 50 mg Q6H PRN PO MODERATE PAIN LEVEL 4-6 Last administered on 01/19/19 21:43; Admin Dose 50 MG; Start 01/15/19 at 21:30 Furosemide (Lasix) 10 mg DAILY@0600 PO Last administered on 01/20/19 05:55; Admin Dose 10 MG; Start 01/17/19 at 06:00 Hydralazine HCl (Apresoline) 10 mg Q8 PO Last administered on 01/20/19 21:54; Admin Dose 10 MG; Start 01/17/19 at 14:00 Ferric Sodium Gluconate Complex 125 mg/Sodium Chloride 110 ml @ 110 mls/hr DAILY@1300 IVPB Last administered on 01/20/19 13:43; Admin Dose 110 MLS/HR; Start 01/18/19 at 13:00; Stop 01/22/19 at 13:59 SUNDEEP GOLDBERG Jan 20, 2019 23:06
[2019-01-20] MEDS: traMADol 50 MG TAB PO PRN (23:54)
[2019-01-21 03:35] VITALS: BP 118/61; PULSE 60; RESP 18
[2019-01-21] MEDS: CEFTRIAXONE 1 GM/50 ML (PMX) 50 ML IVPB SCH (05:42)
[2019-01-21] MEDS: FUROSEMIDE 20 MG TAB PO SCH (05:46)
[2019-01-21 07:49] VITALS: BP 129/62; PULSE 60; RESP 18
[2019-01-21] MEDS: FOLIC ACID 1 MG TAB PO SCH (08:43)
[2019-01-21] MEDS: ALLOPURINOL 300 MG TAB PO SCH (08:44)
[2019-01-21] MEDS: METOPROLOL (XL) 25 MG TAB PO SCH (08:44)
[2019-01-21] MEDS: SOD FERRIC GLUC COMPLX 125 MG in SOD CHLORIDE 0.9% 100 ML IVPB SCH (12:13)
[2019-01-21 14:23] VITALS: BP 114/57; PULSE 60; RESP 18
[2019-01-21] MEDS ORDERED: CYANOCOBALAMIN 1000 MCG INJ IM ONE (15:30)
--- NOTE | 2019-01-21 17:20 | CONS ---
Assessment/Plan Assessment/Plan Hospital Course (Demo Recall) IMPRESSION: 1. Permanent pacemaker, assess function- no signs of dysfunction at this time 2. Abnormal electrocardiogram, left bundle block. Assess for acute coronary syndrome associated with the patient's fall.-neg trop x 3 3. Status post fall to ensure not due to cardiac etiology and truly mechanical as the patient describes. 4. Hypertension, under reasonable control. 5. Dyslipidemia.-LDL 41 HDL 60 6. Abdominal pain. 7. Hypercoagulable state, on Coumadin, therapeutic, question true cardiac arrhythmia.-now subtherapeutic 8. anemia- s/p transfusion 9. cardiomyopathy- with low EF 25-30% by echo this admit Recc: -serial ecg's -Continue current toprol and now afterload reduction with low dose hydralazine -Contineu current statin -Contnue lasix and follow volume status closely -Contineu abx's and f/u cx data -coumadin held and following INR Consultation Date/Type/Reason Admit Date/Time Jan 14, 2019 at 15:09 Initial Consult Date 01/14/19 Type of Consult Cardiology Reason for Consultation PPM Requesting Provider: SJ SCHAEFER MD Date/Time of Note DATE: 01/21/19 TIME: 17:17 Exam/Review of Systems Vital Signs Vitals Vital Signs Date Temp Pulse Resp B/P (MAP) Pulse Ox O2 O2 Flow FiO2 Time Delivery Rate 01/21/19 98.0 60 18 114/57 97 Room Air 14:23 (76) Intake and Output 01/20/19 01/20/19 01/21/19 1515:00 23:00 07:00 IntakeIntake Total 110 ml 700 ml 50 ml BalanceBalance 110 ml 700 ml 50 ml Exam Exam Review of Systems: CONSTITUTIONAL: No fevers, chills. PULMONARY: No sob CARDIOVASCULAR: No chest pain/palpitations GASTROINTESTINAL: No nausea/vomiting. GENITOURINARY: No hematuria/dysuria. MUSCULOSKELETAL: No myagias/arthalgias. PSYCHIATRIC: The patient denies depression. NEUROLOGIC: No weakness Constitutional: alert Psych: no complaints Head: normocephalic ENMT: mucosa pink and moist Neck: supple, jvd (9 cm water) Respiratory: clear to auscultation Cardiovascular: regular rate and rhythm Gastrointestinal: soft, non-tender Musculoskeletal: muscle tone (normal) Extremities: edema (none) Neurological: other (No focal deficits) Labs Result Diagram: 01/21/19 0541 01/21/19 0541 Results 24hrs Laboratory Tests Test 01/21/19 05:41 White Blood Count 10.0 Red Blood Count 3.43 L Hemoglobin 9.6 L Hematocrit 28.9 L Mean Corpuscular Volume 84.3 Mean Corpuscular Hemoglobin 28.0 L Mean Corpuscular Hemoglobin Concent 33.2 Red Cell Distribution Width 14.4 Platelet Count 442 H Mean Platelet Volume 10.2 Immature Granulocytes % 1.100 H Neutrophils % 84.5 H Lymphocytes % 6.6 L Monocytes % 7.6 Eosinophils % 0.1 Basophils % 0.1 Nucleated Red Blood Cells % 0.4 H Immature Granulocytes # 0.110 H Neutrophils # 8.4 H Lymphocytes # 0.7 L Monocytes # 0.8 Eosinophils # 0.0 Basophils # 0.0 Nucleated Red Blood Cells # 0.0 Sodium Level 135 Potassium Level 5.2 H Chloride Level 101 Carbon Dioxide Level 27 Anion Gap 7 Blood Urea Nitrogen 49 H Creatinine 1.24 H Est Glomerular Filtrat Rate mL/min Glucose Level 114 Calcium Level 8.9 Medications Medications Current Medications Ondansetron HCl (Zofran Inj) 4 mg Q6H PRN IV NAUSEA AND/OR VOMITING; Start 01/13/19 at 06:00 Allopurinol (Zyloprim) 300 mg DAILY PO Last administered on 01/21/19at 08:44; Admin Dose 300 MG; Start 01/14/19 at 09:00 Folic Acid (Folic Acid) 1 mg DAILY PO Last administered on 01/21/19at 08:43; Admin Dose 1 MG; Start 01/14/19 at 09:00 Metoprolol Succinate (Toprol Xl) 25 mg DAILY PO Last administered on 01/21/19at 08:44; Admin Dose 25 MG; Start 01/14/19 at 09:00 Warfarin Sodium (Coumadin) 1 mg DAILY@1700 PO Last administered on 01/19/19 19:20; Admin Dose 1 MG; Start 01/14/19 at 17:00; Status Hold Atorvastatin Calcium (Lipitor) 10 mg DAILY@21 PO Last administered on 01/20/19at 20:23; Admin Dose 10 MG; Start 01/13/19 at 21:00 Acetaminophen (Tylenol Tab) 500 mg Q4H PRN PO MILD PAIN(1-3)OR ELEVATED TEMP Last administered on 01/16/19 13:37; Admin Dose 500 MG; Start 01/15/19 at 21:30 Tramadol HCl (Ultram) 50 mg Q6H PRN PO MODERATE PAIN LEVEL 4-6 Last administered on 01/20/19 23:54; Admin Dose 50 MG; Start 01/15/19 at 21:30 Furosemide (Lasix) 10 mg DAILY@0600 PO Last administered on 01/21/19at 05:46; Admin Dose 10 MG; Start 01/17/19 at 06:00 Hydralazine HCl (Apresoline) 10 mg Q8 PO Last administered on 01/21/19at 14:55; Admin Dose 10 MG; Start 01/17/19 at 14:00 Ferric Sodium Gluconate Complex 125 mg/Sodium Chloride 110 ml @ 110 mls/hr DAILY@1300 IVPB Last administered on 01/21/19at 12:13; Admin Dose 110 MLS/HR; Start 01/18/19 at 13:00; Stop 01/22/19 at 13:59 DUSTIN LANDAVERDE Jan 21, 2019 17:20
--- NOTE | 2019-01-21 18:26 | PN ---
Date/Time of Note Date/Time of Note DATE: 01/21/19 TIME: 18:21 Assessment/Plan VTE Prophylaxis Risk score (from [facility] [place])>0 risk: 7 SCD applied (from [facility] [place]): Yes Pharmacological prophylaxis: NA/contraindicated Pharm contraindication: bleeding Lines/Catheters IV Catheter Type (from [facility]): Saline Lock Urinary Cath still in place: No Assessment/Plan Assessment/Plan Assessment: Normocytic anemia- likely multi-factorial -Stool OB negative Hematoma seen along the right pelvic sidewall and lower right rectus sheath -Recent, subacute Questionable history of UC? -per documentation HX of UC??- patient daughter states no known history- will obtain inflammatory markers Cardiomyopathy- with low EF 25-30% by echo this admit Permanent pacemaker Hypertension Dyslipidemia Abdominal pain. Hypercoagulable state -pt on Coumadin Renal insufficiency Small bilateral pleural effusions Cholelithiasis. 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 Plan: CRP/ESR Given Ct results no plan for endoscopic evaluation at this time, additionally Stool for OB is negative We will sign off and follow upon request Result Diagram: 01/21/19 0541 01/21/19 0541 Results 24hrs Laboratory Tests Test 01/21/19 05:41 White Blood Count 10.0 Red Blood Count 3.43 L Hemoglobin 9.6 L Hematocrit 28.9 L Mean Corpuscular Volume 84.3 Mean Corpuscular Hemoglobin 28.0 L Mean Corpuscular Hemoglobin Concent 33.2 Red Cell Distribution Width 14.4 Platelet Count 442 H Mean Platelet Volume 10.2 Immature Granulocytes % 1.100 H Neutrophils % 84.5 H Lymphocytes % 6.6 L Monocytes % 7.6 Eosinophils % 0.1 Basophils % 0.1 Nucleated Red Blood Cells % 0.4 H Immature Granulocytes # 0.110 H Neutrophils # 8.4 H Lymphocytes # 0.7 L Monocytes # 0.8 Eosinophils # 0.0 Basophils # 0.0 Nucleated Red Blood Cells # 0.0 Sodium Level 135 Potassium Level 5.2 H Chloride Level 101 Carbon Dioxide Level 27 Anion Gap 7 Blood Urea Nitrogen 49 H Creatinine 1.24 H Est Glomerular Filtrat Rate mL/min Glucose Level 114 Calcium Level 8.9 Subjective 24 Hr Interval Summary Free Text/Dictation Course reviewed with nursing staff Patient interviewed and examined All labs, imaging and other results reviewed The patient resting in bed, appears comfortable no overt signs of GI bleed, stool OB negative Monitor labs transfuse as needed GI will sign off and follow as needed Exam/Review of Systems Exam Vitals Vital Signs Date Temp Pulse Resp B/P (MAP) Pulse Ox O2 O2 Flow FiO2 Time Delivery Rate 01/21/19 98.0 60 18 114/57 97 Room Air 14:23 (76) Intake and Output 01/20/19 01/20/19 01/21/19 1515:00 23:00 07:00 IntakeIntake Total 110 ml 700 ml 50 ml BalanceBalance 110 ml 700 ml 50 ml Exam PHYSICAL EXAMINATION: GENERAL: Alert & oriented x 3, in no acute distress SKIN: No lesions EYES: Pupils equal reactive to light EARS/NOSE AND THROAT: Ears normal, nose normal NECK: Supple CHEST: Inspection within normal limits. CARDIOVASCULAR: Heart: Regular rate and rhythm RESPIRATORY: Lungs clear to auscultation GASTROINTESTINAL AND LIVER: Abdomen: Soft, non tenderness, non-distended, no hernias, normoactive bowel sounds. Rectal: Deferred. [ GENITOURINARY: Female genitalia within normal limits. Results Results 24hrs Laboratory Tests Test 01/21/19 05:41 White Blood Count 10.0 Red Blood Count 3.43 L Hemoglobin 9.6 L Hematocrit 28.9 L Mean Corpuscular Volume 84.3 Mean Corpuscular Hemoglobin 28.0 L Mean Corpuscular Hemoglobin Concent 33.2 Red Cell Distribution Width 14.4 Platelet Count 442 H Mean Platelet Volume 10.2 Immature Granulocytes % 1.100 H Neutrophils % 84.5 H Lymphocytes % 6.6 L Monocytes % 7.6 Eosinophils % 0.1 Basophils % 0.1 Nucleated Red Blood Cells % 0.4 H Immature Granulocytes # 0.110 H Neutrophils # 8.4 H Lymphocytes # 0.7 L Monocytes # 0.8 Eosinophils # 0.0 Basophils # 0.0 Nucleated Red Blood Cells # 0.0 Sodium Level 135 Potassium Level 5.2 H Chloride Level 101 Carbon Dioxide Level 27 Anion Gap 7 Blood Urea Nitrogen 49 H Creatinine 1.24 H Est Glomerular Filtrat Rate mL/min Glucose Level 114 Calcium Level 8.9 Medications Medication Current Medications Ondansetron HCl (Zofran Inj) 4 mg Q6H PRN IV NAUSEA AND/OR VOMITING; Start 01/13/19 at 06:00 Allopurinol (Zyloprim) 300 mg DAILY PO Last administered on 01/21/19 08:44; Admin Dose 300 MG; Start 01/14/19 at 09:00 Folic Acid (Folic Acid) 1 mg DAILY PO Last administered on 01/21/19 08:43; Admin Dose 1 MG; Start 01/14/19 at 09:00 Metoprolol Succinate (Toprol Xl) 25 mg DAILY PO Last administered on 01/21/19 08:44; Admin Dose 25 MG; Start 01/14/19 at 09:00 Warfarin Sodium (Coumadin) 1 mg DAILY@1700 PO Last administered on 01/19/19 19:20; Admin Dose 1 MG; Start 01/14/19 at 17:00; Status Hold Atorvastatin Calcium (Lipitor) 10 mg DAILY@21 PO Last administered on 01/20/19 20:23; Admin Dose 10 MG; Start 01/13/19 at 21:00 Acetaminophen (Tylenol Tab) 500 mg Q4H PRN PO MILD PAIN(1-3)OR ELEVATED TEMP Last administered on 01/16/19 13:37; Admin Dose 500 MG; Start 01/15/19 at 21:30 Tramadol HCl (Ultram) 50 mg Q6H PRN PO MODERATE PAIN LEVEL 4-6 Last administered on 01/20/19 23:54; Admin Dose 50 MG; Start 01/15/19 at 21:30 Furosemide (Lasix) 10 mg DAILY@0600 PO Last administered on 01/21/19 05:46; Admin Dose 10 MG; Start 01/17/19 at 06:00 Hydralazine HCl (Apresoline) 10 mg Q8 PO Last administered on 01/21/19 14:55; Admin Dose 10 MG; Start 01/17/19 at 14:00 Ferric Sodium Gluconate Complex 125 mg/Sodium Chloride 110 ml @ 110 mls/hr DAILY@1300 IVPB Last administered on 01/21/19 12:13; Admin Dose 110 MLS/HR; Start 01/18/19 at 13:00; Stop 01/22/19 at 13:59 XU CASTELLANOS MD Jan 21, 2019 18:26
--- NOTE | 2019-01-21 20:01 | PN ---
DATE: 01/21/2019 SUBJECTIVE: The patient is breathing comfortably at rest, denies any chest pain. The patient was se en by Physical Therapy yesterday. Vital signs have remained stable. PHYSICAL EXAMINATION: GENERAL: The patient is awake, alert. VITAL SIGNS: Temperature 98, pulse 60, respirations 18, blood pressure 114/57, O2 sat 97% on room ai r. HEENT: No eye discharge or redness. Conjunctivae normal. Oropharynx is grossly negative. NECK: No mass. CHEST: Fairly clear. CARDIOVASCULAR: S1, S2 normal. No murmur. ABDOMEN: Soft, nondistended, nontender. Bowel sounds positive. EXTREMITIES: No leg edema. NEUROLOGIC: The patient is awake, alert with no gross focal deficit. IMPRESSION: 1. History of fall with pelvic fracture and local hematoma in the right pelvic sidewall. Continue c onservative treatment. 2. Cardiomyopathy. The patient's cardiac status remains stable with small dose of Lasix, hydralazin e and metoprolol. 3. Anemia. The patient was seen by Dr. De Guzman from oncology standpoint. The patient was noted to moss ve iron deficiency anemia on iron studies. Procrit level pending. A GI consult has been recommended . Stool guaiac so far has been negative. 4. Urinary tract infection, improved. We will discontinue Rocephin. LABORATORY DATA: Labs done this morning: WBC 10, hemoglobin 9.6, platelets 442. Sodium 135, potass ium 5.2, BUN 49, creatinine 1.2. The patient's vitamin B12 level is 246 which is close to the lower range of normal. PLAN: We will give 1 dose of vitamin B12 1000 mcg intramuscularly. Physical Therapy will continue t o follow. Disposition pending. Due to hematoma, we will continue to hold Coumadin. INR yesterday w as 1.8. The patient is on Coumadin for unclear reasons. The patient does have history of pacemaker placement. Further recommendation depends on the hospital course. Dictated By: SJ FOSTER/KEVIN Conf#: [id number] DID#: [id number]
[2019-01-21 20:27] VITALS: BP 120/66; PULSE 66; RESP 18
[2019-01-21] MEDS: ATORVASTATIN 10 MG TAB PO SCH (20:44)
[2019-01-22] MEDS: traMADol 50 MG TAB PO PRN ×2 (01:59→08:53)
[2019-01-22 02:25] VITALS: BP 132/65; PULSE 60; RESP 20
[2019-01-22] MEDS: FUROSEMIDE 20 MG TAB PO SCH (05:56)
[2019-01-22 08:14] VITALS: BP 132/63; PULSE 61; RESP 17
[2019-01-22] MEDS: FOLIC ACID 1 MG TAB PO SCH (08:52)
[2019-01-22] MEDS: ALLOPURINOL 300 MG TAB PO SCH (08:52)
[2019-01-22] MEDS: METOPROLOL (XL) 25 MG TAB PO SCH (08:53)
--- NOTE | 2019-01-22 10:54 | PN ---
Date/Time of Note Date/Time of Note DATE: 01/22/19 TIME: 10:54 Assessment/Plan VTE Prophylaxis Risk score (from Ns)>0 risk: 4 SCD applied (from Ns): Yes Lines/Catheters IV Catheter Type (from Nrs): Saline Lock Urinary Cath still in place: No Assessment/Plan Assessment/Plan 1. History of fall with pelvic fracture and local hematoma in the right pelvic sidewall. Continue conservative treatment. 2. Cardiomyopathy. The patient's cardiac status remains stable with small dose of Lasix, hydralazine and metoprolol. 3. Anemia. The patient was seen by Dr. De Guzman from oncology standpoint. The patient was noted to have iron deficiency anemia on iron studies. Procrit level pending. A GI consult has been recommended. Stool guaiac so far has been negative. 4. Urinary tract infection, improved. We will discontinue Rocephin. Result Diagram: 01/22/19 0501 01/22/19 0501 Results 24hrs Laboratory Tests Test 01/22/19 05:01 White Blood Count 9.7 Red Blood Count 3.49 L Hemoglobin 9.9 L Hematocrit 29.7 L Mean Corpuscular Volume 85.1 Mean Corpuscular Hemoglobin 28.4 L Mean Corpuscular Hemoglobin Concent 33.3 Red Cell Distribution Width 14.3 Platelet Count 460 H Mean Platelet Volume 10.0 Immature Granulocytes % 1.800 H Neutrophils % 79.6 H Lymphocytes % 9.6 L Monocytes % 7.8 Eosinophils % 1.1 Basophils % 0.1 Nucleated Red Blood Cells % 0.2 H Immature Granulocytes # 0.170 H Neutrophils # 7.7 H Lymphocytes # 0.9 Monocytes # 0.8 Eosinophils # 0.1 Basophils # 0.0 Nucleated Red Blood Cells # 0.0 Sodium Level 136 Potassium Level 5.0 Chloride Level 99 Carbon Dioxide Level 28 Anion Gap 9 Blood Urea Nitrogen 43 H Creatinine 1.13 H Est Glomerular Filtrat Rate mL/min Glucose Level 98 Calcium Level 9.0 Exam/Review of Systems Exam Vitals Vital Signs Date Temp Pulse Resp B/P (MAP) Pulse Ox O2 O2 Flow FiO2 Time Delivery Rate 01/22/19 98.9 61 17 132/63 98 08:14 (86) 01/21/19 Room Air 14:23 Intake and Output 01/21/19 01/21/19 01/22/19 1414:59 22:59 06:59 IntakeIntake Total 1070 ml 440 ml 250 ml OutputOutput Total 900 ml 300 ml 300 ml BalanceBalance 170 ml 140 ml -50 ml Results Results 24hrs Laboratory Tests Test 01/22/19 05:01 White Blood Count 9.7 Red Blood Count 3.49 L Hemoglobin 9.9 L Hematocrit 29.7 L Mean Corpuscular Volume 85.1 Mean Corpuscular Hemoglobin 28.4 L Mean Corpuscular Hemoglobin Concent 33.3 Red Cell Distribution Width 14.3 Platelet Count 460 H Mean Platelet Volume 10.0 Immature Granulocytes % 1.800 H Neutrophils % 79.6 H Lymphocytes % 9.6 L Monocytes % 7.8 Eosinophils % 1.1 Basophils % 0.1 Nucleated Red Blood Cells % 0.2 H Immature Granulocytes # 0.170 H Neutrophils # 7.7 H Lymphocytes # 0.9 Monocytes # 0.8 Eosinophils # 0.1 Basophils # 0.0 Nucleated Red Blood Cells # 0.0 Sodium Level 136 Potassium Level 5.0 Chloride Level 99 Carbon Dioxide Level 28 Anion Gap 9 Blood Urea Nitrogen 43 H Creatinine 1.13 H Est Glomerular Filtrat Rate mL/min Glucose Level 98 Calcium Level 9.0 Medications Medication Current Medications Ondansetron HCl (Zofran Inj) 4 mg Q6H PRN IV NAUSEA AND/OR VOMITING; Start 01/13/19 at 06:00 Allopurinol (Zyloprim) 300 mg DAILY PO Last administered on 01/22/19at 08:52; Admin Dose 300 MG; Start 01/14/19 at 09:00 Folic Acid (Folic Acid) 1 mg DAILY PO Last administered on 01/22/19at 08:52; Admin Dose 1 MG; Start 01/14/19 at 09:00 Metoprolol Succinate (Toprol Xl) 25 mg DAILY PO Last administered on 01/22/19 08:53; Admin Dose 25 MG; Start 01/14/19 at 09:00 Warfarin Sodium (Coumadin) 1 mg DAILY@1700 PO Last administered on 01/19/19 19:20; Admin Dose 1 MG; Start 01/14/19 at 17:00; Status Hold Atorvastatin Calcium (Lipitor) 10 mg DAILY@21 PO Last administered on 01/21/19at 20:44; Admin Dose 10 MG; Start 01/13/19 at 21:00 Acetaminophen (Tylenol Tab) 500 mg Q4H PRN PO MILD PAIN(1-3)OR ELEVATED TEMP Last administered on 01/16/19 13:37; Admin Dose 500 MG; Start 01/15/19 at 21:30 Tramadol HCl (Ultram) 50 mg Q6H PRN PO MODERATE PAIN LEVEL 4-6 Last administered on 01/22/19 08:53; Admin Dose 50 MG; Start 01/15/19 at 21:30 Furosemide (Lasix) 10 mg DAILY@0600 PO Last administered on 01/22/19at 05:56; Admin Dose 10 MG; Start 01/17/19 at 06:00 Hydralazine HCl (Apresoline) 10 mg Q8 PO Last administered on 01/22/19at 05:53; Admin Dose 10 MG; Start 01/17/19 at 14:00 Ferric Sodium Gluconate Complex 125 mg/Sodium Chloride 110 ml @ 110 mls/hr DAILY@1300 IVPB Last administered on 01/21/19at 12:13; Admin Dose 110 MLS/HR; Start 01/18/19 at 13:00; Stop 01/22/19 at 13:59 SUNDEEP GOLDBERG Jan 22, 2019 10:54
[2019-01-22] MEDS: SOD FERRIC GLUC COMPLX 125 MG in SOD CHLORIDE 0.9% 100 ML IVPB SCH (12:40)
--- NOTE | 2019-01-22 13:56 | CONS ---
Assessment/Plan Assessment/Plan Hospital Course (Demo Recall) 88 yo F with CHF, history of breast cancer s/p lumpectomy, dyslipidemia, s/p pacemaker on coumadin for presumed arrhythmia with general weakness and failure to thrive. CBC done which showed anemia for which we are consulted. # Normocytic anemia- Hgb 7.7 on 01/17 -iron studies do reveal iron deficiency -Gi does not recommend scope at this time -continue IV Ferrlecit -erythropoietin level is low for level of anemia. will start procrit 20,000 units q week. # UTI -Continue abx per primary team. Thank you for the opportunity to participate in this patients care A total of 40 minutes of face to face time was spent speaking with the patient, of which greater than 50% was spent in counseling and coordination of care and the detailed question and answer session. Consultation Date/Type/Reason Admit Date/Time Jan 14, 2019 at 15:09 Initial Consult Date 01/17/19 Type of Consult hematology Reason for Consultation anemia Requesting Provider: SJ SCHAEFER MD Date/Time of Note DATE: 01/22/19 TIME: 13:53 24 HR Interval Summary Free Text/Dictation working with physical therapy Exam/Review of Systems Exam Vitals Vital Signs Date Temp Pulse Resp B/P (MAP) Pulse Ox O2 O2 Flow FiO2 Time Delivery Rate 01/22/19 98.9 61 17 132/63 98 08:14 (86) 01/21/19 Room Air 14:23 Intake and Output 01/21/19 01/21/19 01/22/19 1515:00 23:00 07:00 IntakeIntake Total 1070 ml 440 ml 250 ml OutputOutput Total 900 ml 300 ml 300 ml BalanceBalance 170 ml 140 ml -50 ml Constitutional: alert Psych: no complaints Head: normocephalic Eyes: nl conjunctiva ENMT: nl external ears & nose Neck: supple Respiratory: clear to auscultation Cardiovascular: regular rate and rhythm Gastrointestinal: soft Musculoskeletal: nl extremities to inspection Results Result Diagram: 01/22/19 0501 01/22/19 0501 Results 24hrs Laboratory Tests Test 01/22/19 05:01 White Blood Count 9.7 Red Blood Count 3.49 L Hemoglobin 9.9 L Hematocrit 29.7 L Mean Corpuscular Volume 85.1 Mean Corpuscular Hemoglobin 28.4 L Mean Corpuscular Hemoglobin Concent 33.3 Red Cell Distribution Width 14.3 Platelet Count 460 H Mean Platelet Volume 10.0 Immature Granulocytes % 1.800 H Neutrophils % 79.6 H Lymphocytes % 9.6 L Monocytes % 7.8 Eosinophils % 1.1 Basophils % 0.1 Nucleated Red Blood Cells % 0.2 H Immature Granulocytes # 0.170 H Neutrophils # 7.7 H Lymphocytes # 0.9 Monocytes # 0.8 Eosinophils # 0.1 Basophils # 0.0 Nucleated Red Blood Cells # 0.0 Sodium Level 136 Potassium Level 5.0 Chloride Level 99 Carbon Dioxide Level 28 Anion Gap 9 Blood Urea Nitrogen 43 H Creatinine 1.13 H Est Glomerular Filtrat Rate mL/min Glucose Level 98 Calcium Level 9.0 Medications Medication Current Medications Ondansetron HCl (Zofran Inj) 4 mg Q6H PRN IV NAUSEA AND/OR VOMITING; Start 01/13/19 at 06:00 Allopurinol (Zyloprim) 300 mg DAILY PO Last administered on 01/22/19 08:52; Admin Dose 300 MG; Start 01/14/19 at 09:00 Folic Acid (Folic Acid) 1 mg DAILY PO Last administered on 01/22/19 08:52; Adm in Dose 1 MG; Start 01/14/19 at 09:00 Metoprolol Succinate (Toprol Xl) 25 mg DAILY PO Last administered on 01/22/19 08:53; Admin Dose 25 MG; Start 01/14/19 at 09:00 Warfarin Sodium (Coumadin) 1 mg DAILY@1700 PO Last administered on 01/19/19 19:20; Admin Dose 1 MG; Start 01/14/19 at 17:00; Status Hold Atorvastatin Calcium (Lipitor) 10 mg DAILY@21 PO Last administered on 01/21/19 20:44; Admin Dose 10 MG; Start 01/13/19 at 21:00 Acetaminophen (Tylenol Tab) 500 mg Q4H PRN PO MILD PAIN(1-3)OR ELEVATED TEMP Last administered on 01/16/19 13:37; Admin Dose 500 MG; Start 01/15/19 at 21:30 Tramadol HCl (Ultram) 50 mg Q6H PRN PO MODERATE PAIN LEVEL 4-6 Last administered on 01/22/19 08:53; Admin Dose 50 MG; Start 01/15/19 at 21:30 Furosemide (Lasix) 10 mg DAILY@0600 PO Last administered on 01/22/19at 05:56; Admin Dose 10 MG; Start 01/17/19 at 06:00 Hydralazine HCl (Apresoline) 10 mg Q8 PO Last administered on 01/22/19at 05:53; Admin Dose 10 MG; Start 01/17/19 at 14:00 Ferric Sodium Gluconate Complex 125 mg/Sodium Chloride 110 ml @ 110 mls/hr DAILY@1300 IVPB Last administered on 01/22/19at 12:40; Admin Dose 110 MLS/HR; Start 01/18/19 at 13:00; Stop 01/22/19 at 13:59 AYSHA GODFREY M.D. Jan 22, 2019 13:56
[2019-01-22 14:44] VITALS: BP_SYST 103; BP_SYST 87; BP_DIAS 50; BP_DIAS 56; PULSE 58; RESP 18
[2019-01-22] MEDS ORDERED: EPOETIN 10000 UNITS/ML VIAL (ONCOLOGY) SC SCH (17:00)
--- NOTE | 2019-01-22 19:42 | CONS ---
Assessment/Plan Assessment/Plan Hospital Course (Demo Recall) IMPRESSION: 1. Permanent pacemaker, assess function- no signs of dysfunction at this time 2. Abnormal electrocardiogram, left bundle block. Assess for acute coronary syndrome associated with the patient's fall.-neg trop x 3 3. Status post fall to ensure not due to cardiac etiology and truly mechanical as the patient describes. 4. Hypertension, under reasonable control. 5. Dyslipidemia.-LDL 41 HDL 60 6. Abdominal pain. 7. Hypercoagulable state, on Coumadin, therapeutic, question true cardiac arrhythmia.-now subtherapeutic 8. anemia- s/p transfusion 9. cardiomyopathy- with low EF 25-30% by echo this admit Recc: -serial ecg's -Continue current toprol and now afterload reduction with low dose hydralazine as tolerated only -Contineu current statin -Contnue lasix and follow volume status closely -Contineu abx's and f/u cx data -coumadin held and following INR -NO aldactone for systolic CHF at this time given renal failure and borderline hyperkalemia Consultation Date/Type/Reason Admit Date/Time Jan 14, 2019 at 15:09 Initial Consult Date 01/14/19 Type of Consult Cardiology Reason for Consultation Cardiomyopathy Requesting Provider: SJ SCHAEFER MD Date/Time of Note DATE: 01/22/19 TIME: 19:39 Exam/Review of Systems Vital Signs Vitals Vital Signs Date Temp Pulse Resp B/P (MAP) Pulse Ox O2 O2 Flow FiO2 Time Delivery Rate 01/22/19 97.8 58 18 103/56 99 14:44 (72) 01/21/19 Room Air 14:23 Intake and Output 01/21/19 01/21/19 01/22/19 1515:00 23:00 07:00 IntakeIntake Total 1070 ml 440 ml 250 ml OutputOutput Total 900 ml 300 ml 300 ml BalanceBalance 170 ml 140 ml -50 ml Exam Exam Review of Systems: CONSTITUTIONAL: No fevers, chills. PULMONARY: No sob CARDIOVASCULAR: No chest pain/palpitations GASTROINTESTINAL: No nausea/vomiting. GENITOURINARY: No hematuria/dysuria. MUSCULOSKELETAL: No myagias/arthalgias. PSYCHIATRIC: The patient denies depression. NEUROLOGIC: lethargic somewhat Constitutional: other (sleeping, arousable) Psych: no complaints Head: normocephalic ENMT: mucosa pink and moist Neck: supple, jvd (9 cm water) Respiratory: diminished breath sounds (at bases/B) Cardiovascular: regular rate and rhythm Gastrointestinal: soft, non-tender Musculoskeletal: muscle tone (normal) Extremities: edema (none) Neurological: other (No focal deficits) Labs Result Diagram: 01/22/19 0501 01/22/19 0501 Results 24hrs Laboratory Tests Test 01/22/19 05:01 White Blood Count 9.7 Red Blood Count 3.49 L Hemoglobin 9.9 L Hematocrit 29.7 L Mean Corpuscular Volume 85.1 Mean Corpuscular Hemoglobin 28.4 L Mean Corpuscular Hemoglobin Concent 33.3 Red Cell Distribution Width 14.3 Platelet Count 460 H Mean Platelet Volume 10.0 Immature Granulocytes % 1.800 H Neutrophils % 79.6 H Lymphocytes % 9.6 L Monocytes % 7.8 Eosinophils % 1.1 Basophils % 0.1 Nucleated Red Blood Cells % 0.2 H Immature Granulocytes # 0.170 H Neutrophils # 7.7 H Lymphocytes # 0.9 Monocytes # 0.8 Eosinophils # 0.1 Basophils # 0.0 Nucleated Red Blood Cells # 0.0 Sodium Level 136 Potassium Level 5.0 Chloride Level 99 Carbon Dioxide Level 28 Anion Gap 9 Blood Urea Nitrogen 43 H Creatinine 1.13 H Est Glomerular Filtrat Rate mL/min Glucose Level 98 Calcium Level 9.0 Medications Medications Current Medications Ondansetron HCl (Zofran Inj) 4 mg Q6H PRN IV NAUSEA AND/OR VOMITING; Start 01/13/19 at 06:00 Allopurinol (Zyloprim) 300 mg DAILY PO Last administered on 01/22/19at 08:52; Admin Dose 300 MG; Start 01/14/19 at 09:00 Folic Acid (Folic Acid) 1 mg DAILY PO Last administered on 01/22/19 08:52; Admin Dose 1 MG; Start 01/14/19 at 09:00 Metoprolol Succinate (Toprol Xl) 25 mg DAILY PO Last administered on 01/22/19at 08:53; Admin Dose 25 MG; Start 01/14/19 at 09:00 Warfarin Sodium (Coumadin) 1 mg DAILY@1700 PO Last administered on 01/19/19 19:20; Admin Dose 1 MG; Start 01/14/19 at 17:00; Status Hold Atorvastatin Calcium (Lipitor) 10 mg DAILY@21 PO Last administered on 01/21/19at 20:44; Admin Dose 10 MG; Start 01/13/19 at 21:00 Acetaminophen (Tylenol Tab) 500 mg Q4H PRN PO MILD PAIN(1-3)OR ELEVATED TEMP Last administered on 01/16/19 13:37; Admin Dose 500 MG; Start 01/15/19 at 21:30 Tramadol HCl (Ultram) 50 mg Q6H PRN PO MODERATE PAIN LEVEL 4-6 Last administered on 01/22/19 08:53; Admin Dose 50 MG; Start 01/15/19 at 21:30 Furosemide (Lasix) 10 mg DAILY@0600 PO Last administered on 01/22/19at 05:56; Ad min Dose 10 MG; Start 01/17/19 at 06:00 Hydralazine HCl (Apresoline) 10 mg Q8 PO Last administered on 01/22/19 05:53; Admin Dose 10 MG; Start 01/17/19 at 14:00 Epoetin Jeffrey (Epogen (Oncology)) 20,000 units Th@1700 SC Last administered on 01/22/19 18:06; Admin Dose 20,000 UNITS; Start 01/22/19 at 17:00 DUSTIN LANDAVERDE Jan 22, 2019 19:42
[2019-01-22 20:21] VITALS: BP 112/56; PULSE 72; RESP 20
[2019-01-22] MEDS: ATORVASTATIN 10 MG TAB PO SCH (21:05)
[2019-01-23 01:58] VITALS: BP 123/64; PULSE 62; RESP 18
[2019-01-23] MEDS: FUROSEMIDE 20 MG TAB PO SCH (06:16)
[2019-01-23 08:29] VITALS: BP 143/63; PULSE 60; RESP 18
[2019-01-23] MEDS: ALLOPURINOL 300 MG TAB PO SCH (08:55)
[2019-01-23] MEDS: FOLIC ACID 1 MG TAB PO SCH (08:55)
[2019-01-23] MEDS: METOPROLOL (XL) 25 MG TAB PO SCH (08:55)
--- NOTE | 2019-01-23 10:53 | CONS ---
Assessment/Plan Assessment/Plan Hospital Course (Demo Recall) 88 yo F with CHF, history of breast cancer s/p lumpectomy, dyslipidemia, s/p pacemaker on coumadin for presumed arrhythmia with general weakness and failure to thrive. CBC done which showed anemia for which we are consulted. # Normocytic anemia- Hgb 7.7 on 01/17 -HG improved to 9.9. pt received 1 unit of PRBCs on 01/22 -s/p 5 doses of IV Ferrlecit -erythropoietin level is low for level of anemia. will continue procrit 20,000 units q week. #CHF -continue pacemaker and beta blockade # UTI -Continue abx per primary team. Thank you for the opportunity to participate in this patients care A total of 40 minutes of face to face time was spent speaking with the patient, of which greater than 50% was spent in counseling and coordination of care and the detailed question and answer session. Consultation Date/Type/Reason Admit Date/Time Jan 14, 2019 at 15:09 Initial Consult Date 01/17/19 Type of Consult hematology Reason for Consultation anemia Requesting Provider: SJ SCHAEFER MD Date/Time of Note DATE: 01/23/19 TIME: 10:50 24 HR Interval Summary Free Text/Dictation pt received 1 unit of PRBCS on 01/22 Exam/Review of Systems Exam Vitals Vital Signs Date Temp Pulse Resp B/P (MAP) Pulse Ox O2 O2 Flow FiO2 Time Delivery Rate 01/23/19 97.8 60 18 143/63 99 Room Air 08:29 (89) Intake and Output 01/22/19 01/22/19 01/23/19 1515:00 23:00 07:00 IntakeIntake Total 480 ml 550 ml 450 ml BalanceBalance 480 ml 550 ml 450 ml Constitutional: alert, oriented Psych: no complaints Head: normocephalic Eyes: nl conjunctiva ENMT: nl external ears & nose Neck: supple Respiratory: clear to auscultation Cardiovascular: regular rate and rhythm Gastrointestinal: soft Musculoskeletal: nl extremities to inspection Results Result Diagram: 01/22/19 0501 01/22/19 0501 Medications Medication Current Medications Ondansetron HCl (Zofran Inj) 4 mg Q6H PRN IV NAUSEA AND/OR VOMITING; Start 01/13/19 at 06:00 Allopurinol (Zyloprim) 300 mg DAILY PO Last administered on 01/23/19 08:55; Admin Dose 300 MG; Start 01/14/19 at 09:00 Folic Acid (Folic Acid) 1 mg DAILY PO Last administered on 01/23/19 08:55; Admin Dose 1 MG; Start 01/14/19 at 09:00 Metoprolol Succinate (Toprol Xl) 25 mg DAILY PO Last administered on 01/23/19 08:55; Admin Dose 25 MG; Start 01/14/19 at 09:00 Warfarin Sodium (Coumadin) 1 mg DAILY@1700 PO Last administered on 01/19/19 19:20; Admin Dose 1 MG; Start 01/14/19 at 17:00; Status Hold Atorvastatin Calcium (Lipitor) 10 mg DAILY@21 PO Last administered on 01/22/19 21:05; Admin Dose 10 MG; Start 01/13/19 at 21:00 Acetaminophen (Tylenol Tab) 500 mg Q4H PRN PO MILD PAIN(1-3)OR ELEVATED TEMP Last administered on 01/16/19 13:37; Admin Dose 500 MG; Start 01/15/19 at 21:30 Tramadol HCl (Ultram) 50 mg Q6H PRN PO MODERATE PAIN LEVEL 4-6 Last administered on 01/22/19 08:53; Admin Dose 50 MG; Start 01/15/19 at 21:30 Furosemide (Lasix) 10 mg DAILY@0600 PO Last administered on 01/23/19 06:16; Admin Dose 10 MG; Start 01/17/19 at 06:00 Hydralazine HCl (Apresoline) 10 mg Q8 PO Last administered on 01/23/19 06:16; Admin Dose 10 MG; Start 01/17/19 at 14:00 Epoetin Jeffrey (Epogen (Oncology)) 20,000 units Th@1700 SC Last administered on 01/22/19 18:06; Admin Dose 20,000 UNITS; Start 01/22/19 at 17:00 AYSHA GODFREY M.D. Jan 23, 2019 10:53
--- NOTE | 2019-01-23 11:52 | PN ---
Date/Time of Note Date/Time of Note DATE: 01/23/19 TIME: 11:43 Assessment/Plan VTE Prophylaxis Risk score (from Ns)>0 risk: 7 SCD applied (from Ns): Yes Lines/Catheters IV Catheter Type (from Nrs): Saline Lock Urinary Cath still in place: No Assessment/Plan Assessment/Plan 1. History of fall with pelvic fracture and local hematoma in the right pelvic sidewall. Continue conservative treatment. 2. Cardiomyopathy. The patient's cardiac status remains stable with small dose of Lasix, hydralazine and metoprolol. 3. Anemia. The patient was seen by Dr. De Guzman from oncology standpoint. The patient was noted to have iron deficiency anemia on iron studies. Procrit level pending. A GI consult has been recommended. Stool guaiac so far has been negative. 4. Urinary tract infection, improved. We will discontinue Rocephin. Result Diagram: 01/22/19 0501 01/22/19 0501 Exam/Review of Systems Exam Vitals Vital Signs Date Temp Pulse Resp B/P (MAP) Pulse Ox O2 O2 Flow FiO2 Time Delivery Rate 01/23/19 97.8 60 18 143/63 99 Room Air 08:29 (89) Intake and Output 01/22/19 01/22/19 01/23/19 1515:00 23:00 07:00 IntakeIntake Total 480 ml 550 ml 450 ml BalanceBalance 480 ml 550 ml 450 ml Medications Medication Current Medications Ondansetron HCl (Zofran Inj) 4 mg Q6H PRN IV NAUSEA AND/OR VOMITING; Start 01/13/19 at 06:00 Allopurinol (Zyloprim) 300 mg DAILY PO Last administered on 01/23/19at 08:55; Admin Dose 300 MG; Start 01/14/19 at 09:00 Folic Acid (Folic Acid) 1 mg DAILY PO Last administered on 01/23/19 08:55; Admin Dose 1 MG; Start 01/14/19 at 09:00 Metoprolol Succinate (Toprol Xl) 25 mg DAILY PO Last administered on 01/23/19at 08:55; Admin Dose 25 MG; Start 01/14/19 at 09:00 Warfarin Sodium (Coumadin) 1 mg DAILY@1700 PO Last administered on 01/19/19at 19:20; Admin Dose 1 MG; Start 01/14/19 at 17:00; Status Hold Atorvastatin Calcium (Lipitor) 10 mg DAILY@21 PO Last administered on 01/22/19at 21:05; Admin Dose 10 MG; Start 01/13/19 at 21:00 Acetaminophen (Tylenol Tab) 500 mg Q4H PRN PO MILD PAIN(1-3)OR ELEVATED TEMP Last administered on 01/16/19at 13:37; Admin Dose 500 MG; Start 01/15/19 at 21:30 Tramadol HCl (Ultram) 50 mg Q6H PRN PO MODERATE PAIN LEVEL 4-6 Last administered on 01/22/19at 08:53; Admin Dose 50 MG; Start 01/15/19 at 21:30 Furosemide (Lasix) 10 mg DAILY@0600 PO Last administered on 01/23/19at 06:16; Admin Dose 10 MG; Start 01/17/19 at 06:00 Hydralazine HCl (Apresoline) 10 mg Q8 PO Last administered on 01/23/19 06:16; Admin Dose 10 MG; Start 01/17/19 at 14:00 Epoetin Jeffrey (Epogen (Oncology)) 20,000 units Th@1700 SC Last administered on 01/22/19 18:06; Admin Dose 20,000 UNITS; Start 01/22/19 at 17:00 SUNDEEP GOLDBERG Jan 23, 2019 11:52
--- NOTE | 2019-01-23 13:35 | RADRPT ---
Vent Rate: 74 bpm RR Interval: 0 msec VT Interval: 222 msec QRS Duration: 168 msec QT Interval: 464 msec QTC Interval: 515 msec P-R-T [place]: 36 - -37 - 137 degrees Sinus rhythm with sinus arrhythmia with 1st degree AV block Left axis deviation Left bundle branch block Abnormal ECG Electronically Signed By: Oh Cuello
--- NOTE | 2019-01-23 13:50 | CONS ---
Assessment/Plan Assessment/Plan Hospital Course (Demo Recall) IMPRESSION: 1. Permanent pacemaker, assess function- no signs of dysfunction at this time 2. Abnormal electrocardiogram, left bundle block. Assess for acute coronary syndrome associated with the patient's fall.-neg trop x 3 3. Status post fall to ensure not due to cardiac etiology and truly mechanical as the patient describes. 4. Hypertension, under reasonable control. 5. Dyslipidemia.-LDL 41 HDL 60 6. Abdominal pain. 7. Hypercoagulable state, on Coumadin, therapeutic, question true cardiac arrhythmia.-now subtherapeutic 8. anemia- s/p transfusion 9. cardiomyopathy- with low EF 25-30% by echo this admit Recc: -serial ecg's -Continue current toprol and now afterload reduction with low dose hydralazine as tolerated only -Contineu current statin -Contnue lasix and follow volume status closely -Contineu abx's and f/u cx data -coumadin held and following INR given anemia -NO aldactone for systolic CHF at this time given renal failure and borderline hyperkalemia Consultation Date/Type/Reason Admit Date/Time Jan 14, 2019 at 15:09 Initial Consult Date 01/14/19 Type of Consult Cardiology Reason for Consultation PPM Requesting Provider: SJ SCHAEFER MD Date/Time of Note DATE: 01/23/19 TIME: 13:47 Exam/Review of Systems Vital Signs Vitals Vital Signs Date Temp Pulse Resp B/P (MAP) Pulse Ox O2 O2 Flow FiO2 Time Delivery Rate 01/23/19 97.8 60 18 143/63 99 Room Air 08:29 (89) Intake and Output 01/22/19 01/22/19 01/23/19 1515:00 23:00 07:00 IntakeIntake Total 480 ml 550 ml 450 ml BalanceBalance 480 ml 550 ml 450 ml Exam Exam Review of Systems: CONSTITUTIONAL: No fevers, chills. PULMONARY: No sob CARDIOVASCULAR: No chest pain/palpitations GASTROINTESTINAL: No nausea/vomiting. GENITOURINARY: No hematuria/dysuria. MUSCULOSKELETAL: No myagias/arthalgias. PSYCHIATRIC: The patient denies depression. NEUROLOGIC: No weakness Constitutional: alert Psych: no complaints Head: normocephalic ENMT: mucosa pink and moist Neck: supple, jvd (9 cm water) Respiratory: clear to auscultation Cardiovascular: regular rate and rhythm Gastrointestinal: soft, non-tender Musculoskeletal: muscle weakness (mild generalized weakness) Extremities: edema (none) Neurological: other (No focal deficits) Labs Result Diagram: 01/22/19 0501 01/22/19 0501 Medications Medications Current Medications Ondansetron HCl (Zofran Inj) 4 mg Q6H PRN IV NAUSEA AND/OR VOMITING; Start 01/13/19 at 06:00 Allopurinol (Zyloprim) 300 mg DAILY PO Last administered on 01/23/19 08:55; Admin Dose 300 MG; Start 01/14/19 at 09:00 Folic Acid (Folic Acid) 1 mg DAILY PO Last administered on 01/23/19 08:55; Admin Dose 1 MG; Start 01/14/19 at 09:00 Metoprolol Succinate (Toprol Xl) 25 mg DAILY PO Last administered on 01/23/19 08:55; Admin Dose 25 MG; Start 01/14/19 at 09:00 Warfarin Sodium (Coumadin) 1 mg DAILY@1700 PO Last administered on 01/19/19 19:20; Admin Dose 1 MG; Start 01/14/19 at 17:00; Status Hold Atorvastatin Calcium (Lipitor) 10 mg DAILY@21 PO Last administered on 01/22/19 21:05; Admin Dose 10 MG; Start 01/13/19 at 21:00 Acetaminophen (Tylenol Tab) 500 mg Q4H PRN PO MILD PAIN(1-3)OR ELEVATED TEMP Last administered on 01/16/19at 13:37; Admin Dose 500 MG; Start 01/15/19 at 21:30 Tramadol HCl (Ultram) 50 mg Q6H PRN PO MODERATE PAIN LEVEL 4-6 Last administered on 01/22/19 08:53; Admin Dose 50 MG; Start 01/15/19 at 21:30 Furosemide (Lasix) 10 mg DAILY@0600 PO Last administered on 01/23/19 06:16; Admin Dose 10 MG; Start 01/17/19 at 06:00 Hydralazine HCl (Apresoline) 10 mg Q8 PO Last administered on 01/23/19 06:16; Admin Dose 10 MG; Start 01/17/19 at 14:00 Epoetin Jeffrey (Epogen (Oncology)) 20,000 units Th@1700 SC Last administered on 01/22/19at 18:06; Admin Dose 20,000 UNITS; Start 01/22/19 at 17:00 DUSTIN LANDAVERDE Jan 23, 2019 13:50
--- NOTE | 2019-01-23 13:54 | RADRPT ---
Vent Rate: 81 bpm RR Interval: 0 msec DE Interval: 202 msec QRS Duration: 158 msec QT Interval: 440 msec QTC Interval: 511 msec P-R-T [place]: 81 - -45 - 123 degrees Normal sinus rhythm with sinus arrhythmia Left axis deviation Left bundle branch block Abnormal ECG Electronically Signed By: Oh Cuello
[2019-01-23 15:25] VITALS: BP 114/56; PULSE 61; RESP 18
[2019-01-23 20:00] VITALS: BP 112/67; PULSE 72; RESP 18
[2019-01-23] MEDS: ATORVASTATIN 10 MG TAB PO SCH (20:54)
[2019-01-24 02:24] VITALS: BP 142/66; PULSE 68; RESP 18
[2019-01-24] MEDS: FUROSEMIDE 20 MG TAB PO SCH (06:00)
[2019-01-24 07:56] VITALS: BP 133/63; PULSE 64; RESP 18
[2019-01-24] MEDS: FOLIC ACID 1 MG TAB PO SCH (08:22)
[2019-01-24] MEDS: METOPROLOL (XL) 25 MG TAB PO SCH (08:22)
[2019-01-24] MEDS: ALLOPURINOL 300 MG TAB PO SCH (08:22)
[2019-01-24 13:57] VITALS: BP 105/58; PULSE 62; RESP 18
--- NOTE | 2019-01-24 15:25 | CONS ---
Consult Date/Type/Reason Admit Date/Time Jan 14, 2019 at 15:09 Initial Consult Date 01/17/19 Requesting Provider: SJ SCHAEFER MD Date/Time of Note DATE: 01/24/19 TIME: 15:24 Subjective NO acute events - pt stable - off tele now ROS: No fever, no chills, no nausea, no vomiting, no diarrhea/constipation No recent weight changes No chest pain, no PND, no orthopnea No dizziness, blurred vision No thirst, no heat or cold intolerance Objective Vitals Vital Signs Date Temp Pulse Resp B/P (MAP) Pulse Ox O2 O2 Flow FiO2 Time Delivery Rate 01/24/19 97.6 62 18 105/58 99 13:57 (74) 01/23/19 Room Air 15:25 Intake and Output 01/23/19 01/23/19 01/24/19 1515:00 23:00 07:00 IntakeIntake Total 1240 ml 1000 ml BalanceBalance 1240 ml 1000 ml Exam Geneal: WN/WD/NAD, AOx comfortable HEENT: Unicetric/atraumatic/EOMI ( follows commands) NECK: JVD elevated, no thyromegaly Lymph: no lymphadenopathy HEART: regular with no S3, II/ systolic murmur at apex LUNGS: Coarse sounds ABD: soft, NT, ND, +BS : Intact Neuro: non focal SKIN: chronic changes EXT: trace edema Results/Medications Result Diagram: 01/22/19 0501 01/22/19 0501 Home Meds Reported Medications Metoprolol Succinate* (Toprol XL*) 25 Mg Tab.sr.24h, 25 MG PO DAILY, #30 TAB 01/13/19 Simvastatin* (Zocor*) 20 Mg Tablet, 20 MG PO QHS, #30 TAB 01/13/19 Potassium Chloride* (K-Dur*) 10 Meq Tab.prt.sr, 10 MEQ PO DAILY, TAB 01/13/19 Warfarin Sodium* (Coumadin*) 1 Mg Tablet, 1 MG PO DAILY, TAB 01/13/19 Folic Acid* (Folic Acid*) 1 Mg Tablet, 1 MG PO DAILY, TAB 01/13/19 Furosemide* (Furosemide*) 20 Mg Tablet, 20 MG PO DAILY, #60 TAB 01/13/19 Allopurinol* (Allopurinol*) 300 Mg Tablet, 300 MG PO DAILY, TAB 01/13/19 Medications Current Medications Ondansetron HCl (Zofran Inj) 4 mg Q6H PRN IV NAUSEA AND/OR VOMITING; Start 01/13/19 at 06:00 Allopurinol (Zyloprim) 300 mg DAILY PO Last administered on 01/24/19 08:22; Admin Dose 300 MG; Start 01/14/19 at 09:00 Folic Acid (Folic Acid) 1 mg DAILY PO Last administered on 01/24/19 08:22; Admin Dose 1 MG; Start 01/14/19 at 09:00 Metoprolol Succinate (Toprol Xl) 25 mg DAILY PO Last administered on 01/24/19 08:22; Admin Dose 25 MG; Start 01/14/19 at 09:00 Warfarin Sodium (Coumadin) 1 mg DAILY@1700 PO Last administered on 01/19/19 19:20; Admin Dose 1 MG; Start 01/14/19 at 17:00; Status Hold Atorvastatin Calcium (Lipitor) 10 mg DAILY@21 PO Last administered on 01/23/19 20:54; Admin Dose 10 MG; Start 01/13/19 at 21:00 Acetaminophen (Tylenol Tab) 500 mg Q4H PRN PO MILD PAIN(1-3)OR ELEVATED TEMP Last administered on 01/16/19 13:37; Admin Dose 500 MG; Start 01/15/19 at 21:30 Tramadol HCl (Ultram) 50 mg Q6H PRN PO MODERATE PAIN LEVEL 4-6 Last administered on 01/22/19 08:53; Admin Dose 50 MG; Start 01/15/19 at 21:30 Furosemide (Lasix) 10 mg DAILY@0600 PO Last administered on 01/24/19 06:00; Admin Dose 10 MG; Start 01/17/19 at 06:00 Hydralazine HCl (Apresoline) 10 mg Q8 PO Last administered on 01/24/19 15:19; Admin Dose 10 MG; Start 01/17/19 at 14:00 Epoetin Jeffrey (Epogen (Oncology)) 20,000 units Th@1700 SC Last administered on 01/22/19 18:06; Admin Dose 20,000 UNITS; Start 01/22/19 at 17:00 Assessment/Plan Hospital Course (Demo Recall) 1. Permanent pacemaker, assess function- no signs of dysfunction at this time - off tele -o evidence of malfunction now - of tele - HR satble 2. Abnormal electrocardiogram, left bundle block. Assess for acute coronary syndrome associated with the patient's fall.-neg trop x 3 - no CP- stable 3. Status post fall to ensure not due to cardiac etiology and truly mechanical as the patient describes. 4. Hypertension, under reasonable control- con't med rx now 5. Dyslipidemia.-LDL 41 HDL 60 6. Abdominal pain - better 7. Hypercoagulable state, on Coumadin, therapeutic, question true cardiac arrhythmia.-now subtherapeutic - adjust per pharmacy 8. anemia- s/p transfusion - H/H stable now 9. cardiomyopathy- with low EF 25-30% by echo this admit - keep euvolemic RIMMA GUO MD Jan 24, 2019 15:24
--- NOTE | 2019-01-24 15:31 | PN ---
Date/Time of Note Date/Time of Note DATE: 01/24/19 TIME: 15:31 Assessment/Plan VTE Prophylaxis Risk score (from Ns)>0 risk: 7 SCD applied (from Ns): Yes Lines/Catheters IV Catheter Type (from Nrs): Saline Lock Urinary Cath still in place: No Assessment/Plan Assessment/Plan 1. History of fall with pelvic fracture and local hematoma in the right pelvic sidewall. Continue conservative treatment. 2. Cardiomyopathy. The patient's cardiac status remains stable with small dose of Lasix, hydralazine and metoprolol. 3. Anemia. The patient was seen by Dr. De Guzman from oncology standpoint. The patient was noted to have iron deficiency anemia on iron studies. Procrit level pending. A GI consult has been recommended. Stool guaiac so far has been negative. 4. Urinary tract infection, improved. We will discontinue Rocephin. Result Diagram: 01/22/19 0501 01/22/19 0501 Exam/Review of Systems Exam Vitals Vital Signs Date Temp Pulse Resp B/P (MAP) Pulse Ox O2 O2 Flow FiO2 Time Delivery Rate 01/24/19 97.6 62 18 105/58 99 13:57 (74) 01/23/19 Room Air 15:25 Intake and Output 01/23/19 01/23/19 01/24/19 1515:00 23:00 07:00 IntakeIntake Total 1240 ml 1000 ml BalanceBalance 1240 ml 1000 ml Medications Medication Current Medications Ondansetron HCl (Zofran Inj) 4 mg Q6H PRN IV NAUSEA AND/OR VOMITING; Start 01/13/19 at 06:00 Allopurinol (Zyloprim) 300 mg DAILY PO Last administered on 01/24/19 08:22; Admin Dose 300 MG; Start 01/14/19 at 09:00 Folic Acid (Folic Acid) 1 mg DAILY PO Last administered on 01/24/19 08:22; Admin Dose 1 MG; Start 01/14/19 at 09:00 Metoprolol Succinate (Toprol Xl) 25 mg DAILY PO Last administered on 01/24/19 08:22; Admin Dose 25 MG; Start 01/14/19 at 09:00 Warfarin Sodium (Coumadin) 1 mg DAILY@1700 PO Last administered on 01/19/19 19:20; Admin Dose 1 MG; Start 01/14/19 at 17:00; Status Hold Atorvastatin Calcium (Lipitor) 10 mg DAILY@21 PO Last administered on 01/23/19at 20:54; Admin Dose 10 MG; Start 01/13/19 at 21:00 Acetaminophen (Tylenol Tab) 500 mg Q4H PRN PO MILD PAIN(1-3)OR ELEVATED TEMP Last administered on 01/16/19at 13:37; Admin Dose 500 MG; Start 01/15/19 at 21:30 Tramadol HCl (Ultram) 50 mg Q6H PRN PO MODERATE PAIN LEVEL 4-6 Last administered on 01/22/19 08:53; Admin Dose 50 MG; Start 01/15/19 at 21:30 Furosemide (Lasix) 10 mg DAILY@0600 PO Last administered on 01/24/19 06:00; Admin Dose 10 MG; Start 01/17/19 at 06:00 Hydralazine HCl (Apresoline) 10 mg Q8 PO Last administered on 01/24/19 15:19; Admin Dose 10 MG; Start 01/17/19 at 14:00 Epoetin Jeffrey (Epogen (Oncology)) 20,000 units Th@1700 SC Last administered on 01/22/19 18:06; Admin Dose 20,000 UNITS; Start 01/22/19 at 17:00 SUNDEEP GOLDBERG Jan 24, 2019 15:31
[2019-01-24 20:00] VITALS: BP 131/57; PULSE 61; RESP 18
[2019-01-24] MEDS: ATORVASTATIN 10 MG TAB PO SCH (20:40)
[2019-01-25 02:00] VITALS: BP 126/61; PULSE 67; RESP 18
[2019-01-25] MEDS: FUROSEMIDE 20 MG TAB PO SCH (06:09)
[2019-01-25 07:54] VITALS: BP 120/58; PULSE 57; RESP 18
[2019-01-25] MEDS: FOLIC ACID 1 MG TAB PO SCH (08:23)
[2019-01-25] MEDS: ALLOPURINOL 300 MG TAB PO SCH (08:23)
[2019-01-25] MEDS: METOPROLOL (XL) 25 MG TAB PO SCH (08:24)
--- NOTE | 2019-01-25 14:42 | CONS ---
Consult Date/Type/Reason Admit Date/Time Jan 14, 2019 at 15:09 Initial Consult Date 01/17/19 Requesting Provider: SJ SCHAEFER MD Date/Time of Note DATE: 01/25/19 TIME: 14:41 Subjective No acute events - pt comfortable - NO CP - dispo planning now ROS: No fever, no chills, no nausea, no vomiting, no diarrhea/constipation - per nurse Objective Vitals Vital Signs Date Temp Pulse Resp B/P (MAP) Pulse Ox O2 O2 Flow FiO2 Time Delivery Rate 01/25/19 98.3 57 18 120/58 99 07:54 (78) 01/23/19 Room Air 15:25 Intake and Output 01/24/19 01/24/19 01/25/19 1414:59 22:59 06:59 IntakeIntake Total 750 ml 200 ml BalanceBalance 750 ml 200 ml Exam General: WN/WD/NAD, AOx comfortable HEENT: Unicetric/atraumatic/EOMI ( follows some commands) NECK: JVD elevated, no thyromegaly Lymph: no lymphadenopathy HEART: regular with no S3, II/ systolic murmur at apex, pacer LUNGS: Coarse sounds ABD: soft, NT, ND, +BS : Intact Neuro: non focal SKIN: chronic changes EXT: trace edema Results/Medications Result Diagram: 01/22/19 0501 01/22/19 0501 Results 24 hrs Laboratory Tests Test 01/25/19 09:00 Urine Color YELLOW Urine Clarity CLEAR Urine pH 7.0 Urine Specific [place] 1.010 Urine Ketones NEGATIVE Urine Nitrite NEGATIVE Urine Bilirubin NEGATIVE Urine Urobilinogen NEGATIVE Urine Leukocyte Esterase TRACE A Urine Microscopic RBC 1 Urine Microscopic WBC 2 Urine Squamous Epithelial Cells FEW Urine Bacteria FEW A Urine Hemoglobin NEGATIVE Urine Glucose NEGATIVE Urine Total Protein NEGATIVE Home Meds Reported Medications Metoprolol Succinate* (Toprol XL*) 25 Mg Tab.sr.24h, 25 MG PO DAILY, #30 TAB 01/13/19 Simvastatin* (Zocor*) 20 Mg Tablet, 20 MG PO QHS, #30 TAB 01/13/19 Potassium Chloride* (K-Dur*) 10 Meq Tab.prt.sr, 10 MEQ PO DAILY, TAB 01/13/19 Warfarin Sodium* (Coumadin*) 1 Mg Tablet, 1 MG PO DAILY, TAB 01/13/19 Folic Acid* (Folic Acid*) 1 Mg Tablet, 1 MG PO DAILY, TAB 01/13/19 Furosemide* (Furosemide*) 20 Mg Tablet, 20 MG PO DAILY, #60 TAB 01/13/19 Allopurinol* (Allopurinol*) 300 Mg Tablet, 300 MG PO DAILY, TAB 01/13/19 Medications Current Medications Ondansetron HCl (Zofran Inj) 4 mg Q6H PRN IV NAUSEA AND/OR VOMITING; Start 01/13/19 at 06:00 Allopurinol (Zyloprim) 300 mg DAILY PO Last administered on 01/25/19 08:23; Admin Dose 300 MG; Start 01/14/19 at 09:00 Folic Acid (Folic Acid) 1 mg DAILY PO Last administered on 01/25/19 08:23; Admin Dose 1 MG; Start 01/14/19 at 09:00 Metoprolol Succinate (Toprol Xl) 25 mg DAILY PO Last administered on 01/25/19 08:24; Admin Dose 25 MG; Start 01/14/19 at 09:00 Warfarin Sodium (Coumadin) 1 mg DAILY@1700 PO Last administered on 01/19/19 19:20; Admin Dose 1 MG; Start 01/14/19 at 17:00; Status Hold Atorvastatin Calcium (Lipitor) 10 mg DAILY@21 PO Last administered on 01/24/19 20:40; Admin Dose 10 MG; Start 01/13/19 at 21:00 Acetaminophen (Tylenol Tab) 500 mg Q4H PRN PO MILD PAIN(1-3)OR ELEVATED TEMP Last administered on 01/16/19 13:37; Admin Dose 500 MG; Start 01/15/19 at 21:30 Tramadol HCl (Ultram) 50 mg Q6H PRN PO MODERATE PAIN LEVEL 4-6 Last administered on 01/22/19 08:53; Admin Dose 50 MG; Start 01/15/19 at 21:30 Furosemide (Lasix) 10 mg DAILY@0600 PO Last administered on 01/25/19 06:09; Admin Dose 10 MG; Start 01/17/19 at 06:00 Hydralazine HCl (Apresoline) 10 mg Q8 PO Last administered on 01/25/19 06:10; Admin Dose 10 MG; Start 01/17/19 at 14:00 Epoetin Jeffrey (Epogen (Oncology)) 20,000 units Th@1700 SC Last administered on 01/22/19at 18:06; Admin Dose 20,000 UNITS; Start 01/22/19 at 17:00 Ferrous Sulfate (Ferrous Sulfate (Ec)) 325 mg DAILY PO ; Start 01/26/19 at 09:00 Imaging 1. Permanent pacemaker, assess function- no signs of dysfunction at this time - off tele -o evidence of malfunction now - of tele - HR satble - off tele now 2. Abnormal electrocardiogram, left bundle block. Assess for acute coronary syndrome associated with the patient's fall.-neg trop x 3 - no CP- stable 3. Status post fall to ensure not due to cardiac etiology and truly mechanical as the patient describes. 4. Hypertension, under reasonable control- con't med rx now 5. Dyslipidemia.-LDL 41 HDL 60 6. Abdominal pain - better 7. Hypercoagulable state, on Coumadin, therapeutic, question true cardiac arrhythmia.-now subtherapeutic - adjust per pharmacy - stable 8. anemia- s/p transfusion - H/H stable now 9. cardiomyopathy- with low EF 25-30% by echo this admit - keep euvolemic Assessment/Plan Hospital Course (Demo Recall) 1. Permanent pacemaker, assess function- no signs of dysfunction at this time - off tele -o evidence of malfunction now - of tele - HR satble 2. Abnormal electrocardiogram, left bundle block. Assess for acute coronary syndrome associated with the patient's fall.-neg trop x 3 - no CP- stable 3. Status post fall to ensure not due to cardiac etiology and truly mechanical as the patient describes. 4. Hypertension, under reasonable control- con't med rx now 5. Dyslipidemia.-LDL 41 HDL 60 6. Abdominal pain - better 7. Hypercoagulable state, on Coumadin, therapeutic, question true cardiac arrhythmia.-now subtherapeutic - adjust per pharmacy 8. anemia- s/p transfusion - H/H stable now 9. cardiomyopathy- with low EF 25-30% by echo this admit - keep euvolemic RIMMA GUO MD Jan 25, 2019 14:42
[2019-01-25 14:54] VITALS: BP 117/61; PULSE 63; RESP 18
[2019-01-25 20:00] VITALS: BP 118/56; PULSE 65; RESP 18
[2019-01-25] MEDS: ATORVASTATIN 10 MG TAB PO SCH (21:03)
--- NOTE | 2019-01-26 01:30 | PN ---
DATE: 01/25/2019 SUBJECTIVE: Follow up recent UTI, anemia, white pasty stool. The patient denies any chest pain, dys uria or abdominal pain. No reported fever or chills. PHYSICAL EXAMINATION: GENERAL: Revealed the patient to be awake, alert. VITAL SIGNS: Temperature 98, pulse 65, respirations 18, blood pressure 118/56, O2 saturation 97% on room air. HEENT: No eye discharge or redness. Conjunctivae and lids are normal. Oropharynx is clear. NECK: Supple. No mass, no thyromegaly. CHEST: Fairly clear. CARDIOVASCULAR: S1, S2 normal. No murmur. ABDOMEN: Soft, nondistended, nontender. Bowel sounds are present. EXTREMITIES: No leg edema. NEUROLOGIC: The patient is awake, alert, fairly oriented with no gross focal deficit. The patient d oes have generalized weakness. IMPRESSION: 1. Urinary tract infection, status post treatment. 2. Anemia with guaiac negative stools. Iron panel revealed iron deficiency anemia. In addition, th e patient also has anemia of chronic disease. The patient is status post IV Ferrlecit and is also re ceiving Epogen as per oncologist. 3. Cardiomyopathy. The patient's cardiac status remained stable with Lasix, hydralazine and metopro lol. Coumadin has been withheld because of anemia. We will do followup CBC and BMP. If labs are wi thin acceptable limit, we will initiate discharge planning. I met with several family members and th ey are requested SNF in [place] area. If the patient remains stable, she will be discharged tomorrow. Dictated By: SJ FOSTER/KEVIN Conf#: [id number] DID#: [id number] CC: KAYLI PASTOR MD;*EndCC*
[2019-01-26 02:26] VITALS: BP 123/58; PULSE 63; RESP 17
[2019-01-26] MEDS: FUROSEMIDE 20 MG TAB PO SCH (06:01)
[2019-01-26 08:00] VITALS: BP 146/67; PULSE 65; RESP 18
[2019-01-26] MEDS: FOLIC ACID 1 MG TAB PO SCH (08:49)
[2019-01-26] MEDS: ALLOPURINOL 300 MG TAB PO SCH (08:49)
[2019-01-26] MEDS: METOPROLOL (XL) 25 MG TAB PO SCH (08:50)
[2019-01-26] MEDS ORDERED: FAMOTIDINE 20 MG TAB PO SCH (09:00)
[2019-01-26] MEDS ORDERED: FERROUS SULFATE (EC) 325 MG TAB PO SCH (09:00)
--- NOTE | 2019-01-26 11:03 | CONS ---
Assessment/Plan Assessment/Plan Hospital Course (Demo Recall) 88 yo F with CHF, history of breast cancer s/p lumpectomy, dyslipidemia, s/p pacemaker on coumadin for presumed arrhythmia with general weakness and failure to thrive. CBC done which showed anemia for which we are consulted. # Normocytic anemia- Hgb 7.7 on 01/17 -HG now stable at greater than 10 -s/p 5 doses of IV Ferrlecit -erythropoietin level is low for level of anemia. will continue procrit 20,000 units q week. #CHF -continue pacemaker and beta blockade # UTI -Continue abx per primary team. Thank you for the opportunity to participate in this patients care A total of 40 minutes of face to face time was spent speaking with the patient, of which greater than 50% was spent in counseling and coordination of care and the detailed question and answer session. Consultation Date/Type/Reason Admit Date/Time Jan 14, 2019 at 15:09 Initial Consult Date 01/17/19 Type of Consult hematology Reason for Consultation anemia Requesting Provider: SJ SCHAEFER MD Date/Time of Note DATE: 01/26/19 TIME: 11:02 24 HR Interval Summary Free Text/Dictation no acute overnight events Exam/Review of Systems Exam Vitals Vital Signs Date Temp Pulse Resp B/P (MAP) Pulse Ox O2 O2 Flow FiO2 Time Delivery Rate 01/26/19 97.9 65 18 146/67 100 Room Air 08:00 (93) Intake and Output 01/25/19 01/25/19 01/26/19 1515:00 23:00 07:00 IntakeIntake Total 200 ml 320 ml OutputOutput Total 150 ml BalanceBalance -150 ml 200 ml 320 ml Constitutional: alert, oriented Psych: no complaints Head: normocephalic Eyes: nl conjunctiva ENMT: nl external ears & nose Neck: supple Cardiovascular: regular rate and rhythm Gastrointestinal: soft Musculoskeletal: nl extremities to inspection Results Result Diagram: 01/26/194 01/26/194 Results 24hrs Laboratory Tests Test 01/26/19 04:44 White Blood Count 12.1 #H Red Blood Count 3.69 L Hemoglobin 10.6 L Hematocrit 31.7 L Mean Corpuscular Volume 85.9 Mean Corpuscular Hemoglobin 28.7 L Mean Corpuscular Hemoglobin Concent 33.4 Red Cell Distribution Width 15.2 H Platelet Count 439 H Mean Platelet Volume 10.0 Immature Granulocytes % 4.100 H Neutrophils % 73.9 Lymphocytes % 13.9 L Monocytes % 6.3 Eosinophils % 1.6 Basophils % 0.2 Nucleated Red Blood Cells % 0.3 H Immature Granulocytes # 0.500 H Neutrophils # 8.9 H Lymphocytes # 1.7 Monocytes # 0.8 Eosinophils # 0.2 Basophils # 0.0 Nucleated Red Blood Cells # 0.0 Sodium Level 136 Potassium Level 4.5 Chloride Level 101 Carbon Dioxide Level 27 Anion Gap 8 Blood Urea Nitrogen 38 H Creatinine 1.15 H Est Glomerular Filtrat Rate mL/min Glucose Level 90 Calcium Level 8.9 Medications Medication Current Medications Ondansetron HCl (Zofran Inj) 4 mg Q6H PRN IV NAUSEA AND/OR VOMITING; Start 01/13/19 at 06:00 Allopurinol (Zyloprim) 300 mg DAILY PO Last administered on 01/26/19 08:49; Admin Dose 300 MG; Start 01/14/19 at 09:00 Folic Acid (Folic Acid) 1 mg DAILY PO Last administered on 01/26/19 08:49; Admin Dose 1 MG; Start 01/14/19 at 09:00 Metoprolol Succinate (Toprol Xl) 25 mg DAILY PO Last administered on 01/26/19 08:50; Admin Dose 25 MG; Start 01/14/19 at 09:00 Warfarin Sodium (Coumadin) 1 mg DAILY@1700 PO Last administered on 01/19/19 19:20; Admin Dose 1 MG; Start 01/14/19 at 17:00; Status Hold Atorvastatin Calcium (Lipitor) 10 mg DAILY@21 PO Last administered on 01/25/19 21:03; Admin Dose 10 MG; Start 01/13/19 at 21:00 Acetaminophen (Tylenol Tab) 500 mg Q4H PRN PO MILD PAIN(1-3)OR ELEVATED TEMP Last administered on 01/16/19 13:37; Admin Dose 500 MG; Start 01/15/19 at 21:30 Tramadol HCl (Ultram) 50 mg Q6H PRN PO MODERATE PAIN LEVEL 4-6 Last administered on 01/22/19 08:53; Admin Dose 50 MG; Start 01/15/19 at 21:30 Furosemide (Lasix) 10 mg DAILY@0600 PO Last administered on 01/26/19 06:01; Admin Dose 10 MG; Start 01/17/19 at 06:00 Hydralazine HCl (Apresoline) 10 mg Q8 PO Last administered on 01/26/19 06:01; Admin Dose 10 MG; Start 01/17/19 at 14:00 Epoetin Jeffrey (Epogen (Oncology)) 20,000 units Th@1700 SC Last administered on 01/22/19at 18:06; Admin Dose 20,000 UNITS; Start 01/22/19 at 17:00 Ferrous Sulfate (Ferrous Sulfate (Ec)) 325 mg DAILY PO Last administered on 01/26/19 08:49; Admin Dose 325 MG; Start 01/26/19 at 09:00 Famotidine (Pepcid) 20 mg DAILY PO Last administered on 01/26/19 08:50; Admin Dose 20 MG; Start 01/26/19 at 09:00 AYSHA GODFREY M.D. Jan 26, 2019 11:03
--- NOTE | 2019-01-26 12:51 | CONS ---
Assessment/Plan Cardiology NYHA: III Heart Failure Type: Acute on Chronic Heart Failure Type: Systolic Assessment/Plan Hospital Course (Demo Recall) IMPRESSION: 1. Permanent pacemaker, assess function- no signs of dysfunction at this time 2. Abnormal electrocardiogram, left bundle block. Assess for acute coronary syndrome associated with the patient's fall.-neg trop x 3 3. Status post fall to ensure not due to cardiac etiology and truly mechanical as the patient describes. 4. Hypertension, under reasonable control. 5. Dyslipidemia.-LDL 41 HDL 60 6. Abdominal pain. 7. Hypercoagulable state, on Coumadin, therapeutic, question true cardiac arrhythmia.-now subtherapeutic 8. anemia- s/p transfusion 9. cardiomyopathy- with low EF 25-30% by echo this admit 10. coagulopathy Recc: -serial ecg's -Continue current toprol and now afterload reduction with low dose hydralazine as tolerated only -Not on ACEI given renal failure and recurrent bouts of hyperkalemia -Contineu current statin -Contnue lasix and follow volume status closely which is reasonable -Contineu abx's and f/u cx data -coumadin held and following INR given anemia -Not on aldactone for systolic CHF at this time given renal failure and recurrent borderline hyperkalemia Consultation Date/Type/Reason Admit Date/Time Jan 14, 2019 at 15:09 Initial Consult Date 01/14/19 Type of Consult Cardiology Reason for Consultation cardiomyopathy Requesting Provider: SJ SCHAEFER MD Date/Time of Note DATE: 01/26/19 TIME: 12:48 Exam/Review of Systems Vital Signs Vitals Vital Signs Date Temp Pulse Resp B/P (MAP) Pulse Ox O2 O2 Flow FiO2 Time Delivery Rate 01/26/19 97.9 65 18 146/67 100 Room Air 08:00 (93) Intake and Output 01/25/19 01/25/19 01/26/19 1515:00 23:00 07:00 IntakeIntake Total 200 ml 320 ml OutputOutput Total 150 ml BalanceBalance -150 ml 200 ml 320 ml Exam Exam Review of Systems: CONSTITUTIONAL: No fevers, chills. PULMONARY: No sob CARDIOVASCULAR: No chest pain/palpitations GASTROINTESTINAL: No nausea/vomiting. GENITOURINARY: No hematuria/dysuria. MUSCULOSKELETAL: No myagias/arthalgias. PSYCHIATRIC: The patient denies depression. NEUROLOGIC: No weakness Constitutional: alert, oriented Psych: no complaints Head: normocephalic ENMT: mucosa pink and moist Neck: supple, jvd (9 cm water) Respiratory: diminished breath sounds Cardiovascular: regular rate and rhythm Gastrointestinal: soft, non-tender Musculoskeletal: muscle tone, muscle weakness (generalized) Extremities: edema (none) Neurological: lethargic Labs Result Diagram: 01/26/19 0444 01/26/19 0444 Results 24hrs Laboratory Tests Test 01/26/19 04:44 White Blood Count 12.1 #H Red Blood Count 3.69 L Hemoglobin 10.6 L Hematocrit 31.7 L Mean Corpuscular Volume 85.9 Mean Corpuscular Hemoglobin 28.7 L Mean Corpuscular Hemoglobin Concent 33.4 Red Cell Distribution Width 15.2 H Platelet Count 439 H Mean Platelet Volume 10.0 Immature Granulocytes % 4.100 H Neutrophils % 73.9 Lymphocytes % 13.9 L Monocytes % 6.3 Eosinophils % 1.6 Basophils % 0.2 Nucleated Red Blood Cells % 0.3 H Immature Granulocytes # 0.500 H Neutrophils # 8.9 H Lymphocytes # 1.7 Monocytes # 0.8 Eosinophils # 0.2 Basophils # 0.0 Nucleated Red Blood Cells # 0.0 Sodium Level 136 Potassium Level 4.5 Chloride Level 101 Carbon Dioxide Level 27 Anion Gap 8 Blood Urea Nitrogen 38 H Creatinine 1.15 H Est Glomerular Filtrat Rate mL/min Glucose Level 90 Calcium Level 8.9 Medications Medications Current Medications Ondansetron HCl (Zofran Inj) 4 mg Q6H PRN IV NAUSEA AND/OR VOMITING; Start 01/13/19 at 06:00 Allopurinol (Zyloprim) 300 mg DAILY PO Last administered on 01/26/19 08:49; Admin Dose 300 MG; Start 01/14/19 at 09:00 Folic Acid (Folic Acid) 1 mg DAILY PO Last administered on 01/26/19 08:49; Admin Dose 1 MG; Start 01/14/19 at 09:00 Metoprolol Succinate (Toprol Xl) 25 mg DAILY PO Last administered on 01/26/19 08:50; Admin Dose 25 MG; Start 01/14/19 at 09:00 Warfarin Sodium (Coumadin) 1 mg DAILY@1700 PO Last administered on 01/19/19 19:20; Admin Dose 1 MG; Start 01/14/19 at 17:00; Status Hold Atorvastatin Calcium (Lipitor) 10 mg DAILY@21 PO Last administered on 01/25/19 21:03; Admin Dose 10 MG; Start 01/13/19 at 21:00 Acetaminophen (Tylenol Tab) 500 mg Q4H PRN PO MILD PAIN(1-3)OR ELEVATED TEMP Last administered on 01/16/19 13:37; Admin Dose 500 MG; Start 01/15/19 at 21:30 Tramadol HCl (Ultram) 50 mg Q6H PRN PO MODERATE PAIN LEVEL 4-6 Last administered on 01/22/19 08:53; Admin Dose 50 MG; Start 01/15/19 at 21:30 Furosemide (Lasix) 10 mg DAILY@0600 PO Last administered on 01/26/19 06:01; Admin Dose 10 MG; Start 01/17/19 at 06:00 Hydralazine HCl (Apresoline) 10 mg Q8 PO Last administered on 01/26/19 06:01; Admin Dose 10 MG; Start 01/17/19 at 14:00 Epoetin Jeffrey (Epogen (Oncology)) 20,000 units Th@1700 SC Last administered on 01/22/19 18:06; Admin Dose 20,000 UNITS; Start 01/22/19 at 17:00 Ferrous Sulfate (Ferrous Sulfate (Ec)) 325 mg DAILY PO Last administered on 01/26/19 08:49; Admin Dose 325 MG; Start 01/26/19 at 09:00 Famotidine (Pepcid) 20 mg DAILY PO Last administered on 01/26/19 08:50; Admin Dose 20 MG; Start 01/26/19 at 09:00 DUSTIN LANDAVERDE Jan 26, 2019 12:51
--- NOTE | 2019-01-26 13:49 | PN ---
Date/Time of Note Date/Time of Note DATE: 01/26/19 TIME: 13:40 Assessment/Plan VTE Prophylaxis Risk score (from Ns)>0 risk: 6 SCD applied (from Ns): Yes Pharmacological prophylaxis: warfarin tx Lines/Catheters IV [facility] [place] [facility] Urinary Cath still in place: No Assessment/Plan Hospital Course Patient remains hemodynamically stable, afebrile, DC [facility]. Assessment/Plan -Abnormal EKG, left bundle branch block, rule out acute coronary syndrome, troponin is negative x3. Dr. Ponce is following in cardiology consultation. -S/p E. coli UTI, completed treatment with Rocephin. -Status post mechanical fall with complaints of right hip and right shoulder. Right hip and shoulder x-ray is negative for fracture. Right hip fixation hardware appears intact. 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 Status post evaluation by Dr. Prather in orthopedic surgery consultation, status post steroid injection. -Right shoulder pain secondary to old neglect neglected rotator cuff tear and degenerative osteoarthritis of glenohumeral joint with symptomatic exacerbation after fall. -CHF, continue Lasix. -Permanent pacemaker -Hyperlipidemia -Acute kidney injury on possible chronic kidney disease -Anemia, continue Procrit. Dr. De Guzman is following in hematology consultation. -Arthritis Further recommendations based on clinical course. Plan of care discussed with Dr. Petty. Result Diagram: 01/26/194 01/26/194 Results 24hrs Laboratory Tests Test 01/26/19 04:44 White Blood Count 12.1 #H Red Blood Count 3.69 L Hemoglobin 10.6 L Hematocrit 31.7 L Mean Corpuscular Volume 85.9 Mean Corpuscular Hemoglobin 28.7 L Mean Corpuscular Hemoglobin Concent 33.4 Red Cell Distribution Width 15.2 H Platelet Count 439 H Mean Platelet Volume 10.0 Immature Granulocytes % 4.100 H Neutrophils % 73.9 Lymphocytes % 13.9 L Monocytes % 6.3 Eosinophils % 1.6 Basophils % 0.2 Nucleated Red Blood Cells % 0.3 H Immature Granulocytes # 0.500 H Neutrophils # 8.9 H Lymphocytes # 1.7 Monocytes # 0.8 Eosinophils # 0.2 Basophils # 0.0 Nucleated Red Blood Cells # 0.0 Sodium Level 136 Potassium Level 4.5 Chloride Level 101 Carbon Dioxide Level 27 Anion Gap 8 Blood Urea Nitrogen 38 H Creatinine 1.15 H Est Glomerular Filtrat Rate mL/min Glucose Level 90 Calcium Level 8.9 Exam/Review of Systems Exam Vitals Vital Signs Date Temp Pulse Resp B/P (MAP) Pulse Ox O2 O2 Flow FiO2 Time Delivery Rate 01/26/19 97.9 65 18 146/67 100 Room Air 08:00 (93) Intake and Output 01/25/19 01/25/19 01/26/19 1515:00 23:00 07:00 IntakeIntake Total 200 ml 320 ml OutputOutput Total 150 ml BalanceBalance -150 ml 200 ml 320 ml Exam Constitutional: alert, oriented Respiratory: clear to auscultation Cardiovascular: nl pulse, other (Left chest PPM) Gastrointestinal: soft, non-tender Musculoskeletal: nl extremities to inspection Extremities: normal pulses Neurological: nl mental status Results Results 24hrs Laboratory Tests Test 01/26/19 04:44 White Blood Count 12.1 #H Red Blood Count 3.69 L Hemoglobin 10.6 L Hematocrit 31.7 L Mean Corpuscular Volume 85.9 Mean Corpuscular Hemoglobin 28.7 L Mean Corpuscular Hemoglobin Concent 33.4 Red Cell Distribution Width 15.2 H Platelet Count 439 H Mean Platelet Volume 10.0 Immature Granulocytes % 4.100 H Neutrophils % 73.9 Lymphocytes % 13.9 L Monocytes % 6.3 Eosinophils % 1.6 Basophils % 0.2 Nucleated Red Blood Cells % 0.3 H Immature Granulocytes # 0.500 H Neutrophils # 8.9 H Lymphocytes # 1.7 Monocytes # 0.8 Eosinophils # 0.2 Basophils # 0.0 Nucleated Red Blood Cells # 0.0 Sodium Level 136 Potassium Level 4.5 Chloride Level 101 Carbon Dioxide Level 27 Anion Gap 8 Blood Urea Nitrogen 38 H Creatinine 1.15 H Est Glomerular Filtrat Rate mL/min Glucose Level 90 Calcium Level 8.9 Medications Medication Current Medications Ondansetron HCl (Zofran Inj) 4 mg Q6H PRN IV NAUSEA AND/OR VOMITING; Start 01/13/19 at 06:00 Allopurinol (Zyloprim) 300 mg DAILY PO Last administered on 01/26/19at 08:49; Admin Dose 300 MG; Start 01/14/19 at 09:00 Folic Acid (Folic Acid) 1 mg DAILY PO Last administered on 3/4/19at 08:49; Admin Dose 1 MG; Start 01/14/19 at 09:00 Metoprolol Succinate (Toprol Xl) 25 mg DAILY PO Last administered on 01/26/19 08:50; Admin Dose 25 MG; Start 01/14/19 at 09:00 Warfarin Sodium (Coumadin) 1 mg DAILY@1700 PO Last administered on 01/19/19 19:20; Admin Dose 1 MG; Start 01/14/19 at 17:00; Status Hold Atorvastatin Calcium (Lipitor) 10 mg DAILY@21 PO Last administered on 01/25/19 21:03; Admin Dose 10 MG; Start 01/13/19 at 21:00 Acetaminophen (Tylenol Tab) 500 mg Q4H PRN PO MILD PAIN(1-3)OR ELEVATED TEMP Last administered on 01/16/19 13:37; Admin Dose 500 MG; Start 01/15/19 at 21:30 Tramadol HCl (Ultram) 50 mg Q6H PRN PO MODERATE PAIN LEVEL 4-6 Last adm inistered on 01/22/19 08:53; Admin Dose 50 MG; Start 01/15/19 at 21:30 Furosemide (Lasix) 10 mg DAILY@0600 PO Last administered on 01/26/19 06:01; Admin Dose 10 MG; Start 01/17/19 at 06:00 Hydralazine HCl (Apresoline) 10 mg Q8 PO Last administered on 01/26/19 06:01; Admin Dose 10 MG; Start 01/17/19 at 14:00 Epoetin Jeffrey (Epogen (Oncology)) 20,000 units Th@1700 SC Last administered on 01/22/19 18:06; Admin Dose 20,000 UNITS; Start 01/22/19 at 17:00 Ferrous Sulfate (Ferrous Sulfate (Ec)) 325 mg DAILY PO Last administered on 01/26/19 08:49; Admin Dose 325 MG; Start 01/26/19 at 09:00 Famotidine (Pepcid) 20 mg DAILY PO Last administered on 01/26/19 08:50; Admin Dose 20 MG; Start 01/26/19 at 09:00 JUAN LAUREN Jan 26, 2019 13:49
[2019-01-26 14:20] VITALS: BP 109/54; PULSE 66; RESP 18
== END 2019-01-26 18:52 | DRG 690 ==
LOC: E/R 22:12 → PP2 01-13 03:27 → OBSVTOIN 01-14 15:09
PROVIDERS: ADMIT Internal Medicine; ATTEND Internal Medicine
PROC: 30233N1 Transfusion of Nonautologous Red Blood Cells into Peripheral Vein, Percutaneous Approach (ICD-10-PCS; principal; 2019-01-16)
PROC: 3E0U33Z Introduction of Anti-inflammatory into Joints, Percutaneous Approach (ICD-10-PCS; 2019-01-17)
PROC: 3E0U3BZ Introduction of Anesthetic Agent into Joints, Percutaneous Approach (ICD-10-PCS; 2019-01-17)
DX: N39.0 Urinary tract infection, site not specified (principal); N17.9 Acute kidney failure, unspecified; D68.59 Other primary thrombophilia; I42.9 Cardiomyopathy, unspecified; I13.0 Hypertensive heart and chronic kidney disease with heart failure and stage 1 through stage 4 chronic kidney disease, or unspecified chronic kidney disease; Z95.0 Presence of cardiac pacemaker; W19.XXXA Unspecified fall, initial encounter; E78.5 Hyperlipidemia, unspecified; M10.9 Gout, unspecified; D63.1 Anemia in chronic kidney disease; M75.101 Unspecified rotator cuff tear or rupture of right shoulder, not specified as traumatic; M19.011 Primary osteoarthritis, right shoulder; M16.11 Unilateral primary osteoarthritis, right hip; Z96.641 Presence of right artificial hip joint; M17.0 Bilateral primary osteoarthritis of knee; B96.20 Unspecified Escherichia coli [E. coli] as the cause of diseases classified elsewhere; Z85.3 Personal history of malignant neoplasm of breast; Z79.01 Long term (current) use of anticoagulants; S30.0XXA Contusion of lower back and pelvis, initial encounter; I72.3 Aneurysm of iliac artery; N18.9 Chronic kidney disease, unspecified; I50.9 Heart failure, unspecified
CPT/HCPCS: 36415; 36430; 70450; 71045; 73500; 73510; 73560; 74176; 80048; 80053; 80061; 81001; 82270; 82550; 82553; 82607; 82668; 82728; 82746; 83540; 83605; 84443; 84484; 85025; 85610; 85651; 85730; 86140; 86850; 86900; 86901; 86920; 87040; 87045; 87086; 93005; 93306; 96374; 97110; 97116; 97162; 97530; G0378; J0885; J0696; J1040; J2270; J2916; J3420; L3260; P9016